=== PATIENT | male | born 1960 | race Caucasian/White ===

== ENCOUNTER 2017-10-23 09:40 | Inpatient (IN) | payer MEDICAID ==
[2017-10-23] VITALS (11 sets, daily range): BP systolic 131–157; BP diastolic 81–107
[~2017-10-23] VITALS: Ht 190.5 cm; Wt 108.5 kg
[2017-10-23 10:11] LABS: BASOPHILS # (AUTO) 0.1 X10'3 (0-0.2); BASOPHILS % (AUTO) 1.1 % (0-1); EOSINOPHILS # (AUTO) 0.5 X10'3 (0-0.9); EOSINOPHILS % (AUTO) 4.8 % (0-6); HEMATOCRIT 50.3 % (42.0-52.0); HEMOGLOBIN 16.8 g/dl (14.0-17.9); LYMPHOCYTES # (AUTO) 2.8 X10'3 (1.1-4.8); LYMPHOCYTES % (AUTO) 25.7 % (21-51); MEAN CORPUSCULAR HEMOGLOBIN 28.7 PG (27.0-31.0); MEAN CORPUSCULAR HGB CONC 33.4 % (33.0-36.5); MEAN PLATELET VOLUME 8.8 FL (7.4-10.4); MONOCYTES # (AUTO) 1.1 X10'3 (0-0.9); MONOCYTES % (AUTO) 9.8 % (2-12); NEUTROPHILS # (AUTO) 6.3 X10'3 (1.8-7.7); NEUTROPHILS % (AUTO) 58.6 % (42-75); PLATELET COUNT 238 X10'3 (140-440); RED BLOOD COUNT 5.85 X10'6 (4.70-6.10); WHITE BLOOD COUNT 10.7 X10'3 (4.5-11.0)
[2017-10-23 10:28] LABS: ALANINE AMINOTRANSFERASE 109 U/L (12-78); ALBUMIN 3.7 G/DL (3.4-5.0); ALBUMIN/GLOBULIN RATIO 0.8 (1.1-1.5); ALKALINE PHOSPHATASE 88 IU/L (46-116); ANION GAP 8 (8-16); ASPARTATE AMINO TRANSFERASE 56 U/L (10-37); BILIRUBIN,TOTAL 0.6 MG/DL (0.1-1.0); BLOOD UREA NITROGEN 13 MG/DL (7-18); BUN/CREATININE RATIO 14.6 (5.4-32.0); CALCIUM 9.6 MG/DL (8.5-10.1); CHLORIDE 104 MMOL/L (99-107); CREATININE 0.89 MG/DL (0.60-1.10); GLUCOSE 96 MG/DL (70-104); SODIUM 137 MMOL/L (135-145); TOTAL CARBON DIOXIDE 25.5 MMOL/L (24-32); TOTAL PROTEIN 8.2 G/DL (6.4-8.2); eGFR 88 ML/MIN
[2017-10-23 10:35] LABS: MAGNESIUM 2.1 MG/DL (1.5-2.4)
[2017-10-23] MEDS ORDERED: vancomycin/NS 1 GM ADD-VANTAGE 250 ML IV ONE (12:35)
[2017-10-23] MEDS ORDERED: insulin regular, human inj. 100 UNITS in normal saline 100ml IV soln 100 ML IV SCH ×2 (12:35)
[2017-10-23] MEDS ORDERED: cefazolin/dext.iso 2gm/50ml 50 ML IV ONE (12:35)
[2017-10-23] MEDS ORDERED: MESSAGE TO NURSING PO ONE ×4 (12:35)
[2017-10-23] MEDS ORDERED: dextrose 50%-water 50ml dispensing syringe IV PRN (12:35)
[2017-10-23] MEDS ORDERED: insulin Lispro (HumaLOG) vial - multi-dose SQ SCH (13:00)
[2017-10-23 13:09] LABS: PARTIAL THROMBOPLASTIN TIME 25 SECONDS (22-32); PROTHROMBIN TIME 10.2 SECONDS (9.0-12.0)
[2017-10-23 13:11] LABS: ABG BASE EXCESS 0.6 mmol/L (-2.0-3.0); ABG HCO3 24.5 mmol/L (22.0-26.0); ABG OXYGEN SATURATION 93.9 % (95-98); ABG PCO2 (T) 37.5 mmHg (35.0-48.0); ABG PH (T) 7.433 (7.350-7.450); ABG PO2 (T) 67.5 mmHg (83-108); ALLEN'S TEST Positive; FCOHb 1.8 % (0.5-1.5); FMetHb 0.2 % (0.3-1.12); TOTAL HEMOGLOBIN 17.5 G/dl (14.0-18.0)
[2017-10-23] MEDS ORDERED: normal saline 1000ml 1,000 ML IV SCH (13:48)
[2017-10-23] MEDS ORDERED: acetaminophen 325mg tablet PO PRN ×2 (13:50)
[2017-10-23] MEDS ORDERED: diphenhydrAMINE 25mg capsule PO PRN (13:50)
[2017-10-23] MEDS ORDERED: magnesium 2GM in 50ml NS 50 ML IV PRN (13:50)
[2017-10-23] MEDS ORDERED: magnesium hydroxide 30ml (MOM) UD suspension PO PRN (13:50)
[2017-10-23] MEDS ORDERED: magnesium Cl slow-release 64mg tablet PO PRN (13:50)
[2017-10-23] MEDS ORDERED: mag hydrox/Alum hydrox/simeth 30ml oral suspension PO PRN (13:50)
[2017-10-23] MEDS ORDERED: HYDROcodone/acetaminophen 5mg/325mg tablet PO PRN (13:50)
[2017-10-23] MEDS ORDERED: morphine 4 MG/ML inj SYRINge IV PRN ×2 (13:50)
[2017-10-23] MEDS ORDERED: potassium Cl 20 mEq SR tablet PO PRN ×2 (13:50)
[2017-10-23] MEDS ORDERED: K and/or MAG REPLACEMENT MC SCH (13:50)
[2017-10-23] MEDS ORDERED: HYDROcodone/acetaminophen 10/325mg tab PO PRN (13:50)
[2017-10-23] MEDS ORDERED: potassium Cl 40MEQ/NS 500ml 500 ML IV PRN ×2 (13:50)
[2017-10-23] MEDS ORDERED: ondansetron/PF 4mg/2ml inj IV PRN (13:50)
[2017-10-23] MEDS ORDERED: magnesium 4gm in 100ml NS 100 ML IV PRN (13:50)
[2017-10-23 13:59] LABS: CLARITY,URINE SLIGHTLY CLOUDY (Clear); COLOR,URINE YELLOW (Yellow); GLUCOSE, URINE NEGATIVE (Neg); KETONES,URINE NEGATIVE (Neg); LEUKOCYTE ESTERASE ,URINE SMALL (Neg); NITRITES, URINE NEGATIVE (Neg); OCCULT BLOOD,URINE TRACE-INTACT (Neg); PH,URINE 5.5 (4.8-8.0); PROTEIN,URINE NEGATIVE (Neg); UROBILINOGEN,URINE 0.2 E.U/dL (0.2-1.0)
[2017-10-23 14:00] LABS: UA COLLECTION TYPE CLN CATCH MIDSTREAM
[2017-10-23 14:07] LABS: SQUAMOUS EPITHELIAL CELL,UR FEW /LPF (FEW); TRICHOMONAS,URINE FEW /HPF (NEGATIVE)
[2017-10-23 14:08] LABS: BACTERIA,URINE FEW /HPF (Neg); RBC,URINE 0-2 /HPF (0-2); WBC,URINE 0-4 /HPF (0-4)
[2017-10-23 14:15] LABS: URINE AMPHETAMINE SCREEN POSITIVE (Neg); URINE BARBITUATE SCREEN NEGATIVE (Neg); URINE BENZODIAZEPINES SCREEN NEGATIVE (Neg); URINE CANNABINOID SCREEN NEGATIVE (Neg); URINE COCAINE SCREEN NEGATIVE (Neg); URINE METHADONE SCREEN NEGATIVE (Neg); URINE OPIATE SCREEN NEGATIVE (Neg); URINE PHENCYCLIDINE SCREEN NEGATIVE (Neg)
[2017-10-23] MEDS ORDERED: LORazepam 2 mg/ml vial IV ONE (15:25)
[2017-10-23] MEDS ORDERED: midazolam 2 mg/2 ml injection ONE ×2 (16:25→17:08)
[2017-10-23] MEDS ORDERED: LIDOcaine 1% 30ml preserv. free vial ONE (16:26)
[2017-10-23] MEDS ORDERED: fentaNYL/PF 50MCG/1 ML 2ML syringe ONE (16:26)
[2017-10-23] MEDS ORDERED: iohexol 350MG/ML 100ml bottle IV ONE (16:26)
[2017-10-23] MEDS ORDERED: iohexol 350 MG/ML 50ML vial IV ONE (16:26)
[2017-10-23] MEDS ORDERED: normal saline 1000ml 1,000 ML IV ONE (18:05)
[2017-10-23] MEDS ORDERED: ringers solution, lacted 1,000 ML IV ONE (18:55)
[2017-10-23] MEDS ORDERED: hydrALAZINE 20mg/ml inj. IV ONE (20:55)
[2017-10-23] MEDS ORDERED: hydrALAZINE 20mg/ml inj. IV PRN (20:55)
[2017-10-23] MEDS ORDERED: temazepam 15mg capsule PO PRN (21:00)
[2017-10-24] VITALS (19 sets, daily range): BP systolic 80–160; BP diastolic 46–94
[2017-10-24] MEDS ORDERED: vancomycin/NS 1 GM ADD-VANTAGE 250 ML IV ONE (05:00)
[2017-10-24] MEDS ORDERED: Cefazolin 2GM/100ML NS IVPB 100 ML IV ONE (05:00)
[2017-10-24] MEDS ORDERED: insulin Lispro (HumaLOG) vial - multi-dose SQ SCH (05:00)
[2017-10-24] MEDS ORDERED: mupirocin 2% ointment 22GM NS SCH (05:00)
[2017-10-24 05:27] LABS: BASOPHILS # (AUTO) 0.1 X10'3 (0-0.2); BASOPHILS % (AUTO) 0.8 % (0-1); EOSINOPHILS # (AUTO) 0.4 X10'3 (0-0.9); EOSINOPHILS % (AUTO) 3.4 % (0-6); HEMATOCRIT 49.3 % (42.0-52.0); HEMOGLOBIN 16.5 g/dl (14.0-17.9); LYMPHOCYTES # (AUTO) 2.7 X10'3 (1.1-4.8); MEAN CORPUSCULAR HGB CONC 33.6 % (33.0-36.5); MEAN CORPUSCULAR VOLUME 86.3 FL (78-98); MEAN PLATELET VOLUME 9.5 FL (7.4-10.4); MONOCYTES # (AUTO) 0.8 X10'3 (0-0.9); MONOCYTES % (AUTO) 7.2 % (2-12); NEUTROPHILS # (AUTO) 7.3 X10'3 (1.8-7.7); NEUTROPHILS % (AUTO) 64.6 % (42-75); PLATELET COUNT 210 X10'3 (140-440); RED BLOOD COUNT 5.71 X10'6 (4.70-6.10); RED CELL DISTRIBUTION WIDTH 14.5 % (11.5-14.5); WHITE BLOOD COUNT 11.3 X10'3 (4.5-11.0)
[2017-10-24] MEDS ORDERED: LORazepam 2 mg/ml vial IV ONE (06:00)
[2017-10-24] MEDS ORDERED: famotidine 20mg tablet PO ONE (06:00)
[2017-10-24 06:11] LABS: ALANINE AMINOTRANSFERASE 107 U/L (12-78); ALBUMIN 3.5 G/DL (3.4-5.0); ALBUMIN/GLOBULIN RATIO 0.8 (1.1-1.5); ALKALINE PHOSPHATASE 75 IU/L (46-116); ANION GAP 9 (8-16); ASPARTATE AMINO TRANSFERASE 56 U/L (10-37); BILIRUBIN,TOTAL 0.6 MG/DL (0.1-1.0); BLOOD UREA NITROGEN 17 MG/DL (7-18); CHLORIDE 104 MMOL/L (99-107); CHOLESTEROL 137 MG/DL (0-200); GLUCOSE 114 MG/DL (70-104); MAGNESIUM 2.1 MG/DL (1.5-2.4); PHOSPHORUS 3.9 MG/DL (2.3-4.5); SODIUM 139 MMOL/L (135-145); TOTAL CARBON DIOXIDE 25.7 MMOL/L (24-32); eGFR 77 ML/MIN
[2017-10-24 06:12] LABS: CHOL/HDL RATIO 3.8 (0.00-4.99); HDL CHOLESTEROL 36 MG/DL (35-60); LDL CHOLESTEROL 91 MG/DL (50-100); TRIGLYCERIDES 109 MG/DL (20-135)
[2017-10-24] MEDS ORDERED: amiodarone 50MG/ML inj IV ONE (06:54)
[2017-10-24] MEDS ORDERED: DOPamine/D5W 400mg/250ml bag IV ONE (06:54)
[2017-10-24] MEDS ORDERED: protamine sulf. 10mg/ml inj. IV ONE (06:54)
[2017-10-24] MEDS ORDERED: isoflurane 100ml inhalation liquid IH ONE (06:54)
[2017-10-24] MEDS ORDERED: aminocaproic acid 250 MG/1 ML inj. ONE (06:54)
[2017-10-24] MEDS ORDERED: sodium bicarbonate (8.4%) 1 mEq/ml syringe ONE (06:54)
[2017-10-24] MEDS ORDERED: MIDAZolam 1mg/ml 10ml vial ONE (06:55)
[2017-10-24] MEDS ORDERED: SUFENTANIL CITRATE 50 MCG/ML 2ml ampule IV ONE (06:55)
[2017-10-24 08:00] LABS: ABG HCO3 25.3 mmol/L (22.0-26.0); ABG OXYGEN SATURATION 99.1 % (95-98); ABG PCO2 47.7 mmHg (35.0-45.0); ABG PH 7.343 (7.350-7.450); ABG PO2 164.7 mmHg (60.0-100.0); CL (ABG) 104 mmol/L (99-107); FCOHb 1.1 % (0.5-1.5); FMetHb 0.4 % (0.3-1.12); FO2Hb 97.6 % (94-100); GLUCOSE (ABG) 112 mg/dl (70-105); IONIZED CA (ABG) 1.17 mmol/L (1.03-1.32); K (ABG) 4.1 mmol/L (3.3-5.1); NA (ABG) 137 mmol/L (135-145); TOTAL HEMOGLOBIN 16.6 G/dl (14.0-18.0)
[2017-10-24] MEDS ORDERED: enoxaparin 40mg/0.4ml syringe SUBCUT SCH (08:00)
[2017-10-24] MEDS ORDERED: propofol inj 20 ML IV ONE (08:01)
[2017-10-24] MEDS ORDERED: propofol inj 0 ML IV ONE (08:01)
[2017-10-24] MEDS ORDERED: 0.9 % SODIUM CHLORIDE 10 ML VIAL ONE ×3 (08:01)
[2017-10-24] MEDS ORDERED: LIDOcaine 2% (20mg/ml) 5ml vial ONE (08:02)
[2017-10-24] MEDS ORDERED: rocuronium 10mg/ml inj IV ONE ×2 (08:02)
[2017-10-24] MEDS ORDERED: ePHEDrine 50MG/ML INJ. ONE ×2 (08:02→08:44)
[2017-10-24] MEDS ORDERED: fentaNYL/PF 50MCG/1 ML 2ML syringe IV PRN (08:55)
[2017-10-24] MEDS ORDERED: midazolam 2 mg/2 ml injection IV PRN (08:55)
[2017-10-24 09:06] LABS: ABG BASE EXCESS 1.4 mmol/L (-2.0-3.0); ABG HCO3 28.8 mmol/L (22.0-26.0); ABG OXYGEN SATURATION 99.1 % (95-98); ABG PCO2 58.3 mmHg (35.0-45.0); ABG PH 7.312 (7.350-7.450); ABG PO2 211.6 mmHg (60.0-100.0); CL (ABG) 103 mmol/L (99-107); FCOHb 0.8 % (0.5-1.5); FMetHb 0.5 % (0.3-1.12); FO2Hb 97.8 % (94-100); GLUCOSE (ABG) 140 mg/dl (70-105); IONIZED CA (ABG) 1.08 mmol/L (1.03-1.32); K (ABG) 5.3 mmol/L (3.3-5.1); NA (ABG) 132 mmol/L (135-145); TOTAL HEMOGLOBIN 12.7 G/dl (14.0-18.0)
[2017-10-24 09:20] LABS: ABG HCO3 VENOUS 24.8 mmol/L; ABG PCO2 VENOUS 50.8 mmHg; ABG PO2 VENOUS 53.2 mmHg; CL (ABG) 103 mmol/L (99-107); FHHb VENOUS 15.9 %; FMetHb VENOUS 0.5 %; FO2Hb VENOUS 82.6 %; GLUCOSE (ABG) 158 mg/dl (70-105); IONIZED CA (ABG) 1.09 mmol/L (1.03-1.32); K (ABG) 5.1 mmol/L (3.3-5.1); NA (ABG) 133 mmol/L (135-145); TOTAL HEMOGLOBIN 12.9 G/dl (14.0-18.0)
[2017-10-24 09:40] LABS: ABG BASE EXCESS -1.7 mmol/L (-2.0-3.0); ABG HCO3 22.9 mmol/L (22.0-26.0); ABG OXYGEN SATURATION 99.1 % (95-98); ABG PCO2 38.1 mmHg (35.0-45.0); ABG PH 7.396 (7.350-7.450); ABG PO2 231.9 mmHg (60.0-100.0); CL (ABG) 104 mmol/L (99-107); FCOHb 0.6 % (0.5-1.5); FMetHb 0.4 % (0.3-1.12); FO2Hb 98.1 % (94-100); GLUCOSE (ABG) 171 mg/dl (70-105); IONIZED CA (ABG) 1.05 mmol/L (1.03-1.32); K (ABG) 4.9 mmol/L (3.3-5.1); NA (ABG) 132 mmol/L (135-145); TOTAL HEMOGLOBIN 12.8 G/dl (14.0-18.0)
[2017-10-24 10:00] LABS: ABG BASE EXCESS -1.9 mmol/L (-2.0-3.0); ABG HCO3 22.3 mmol/L (22.0-26.0); ABG OXYGEN SATURATION 99.2 % (95-98); ABG PCO2 36.2 mmHg (35.0-45.0); ABG PH 7.407 (7.350-7.450); CL (ABG) 104 mmol/L (99-107); FCOHb 0.6 % (0.5-1.5); FMetHb 0.4 % (0.3-1.12); FO2Hb 98.2 % (94-100); GLUCOSE (ABG) 167 mg/dl (70-105); IONIZED CA (ABG) 1.06 mmol/L (1.03-1.32); K (ABG) 4.5 mmol/L (3.3-5.1); NA (ABG) 133 mmol/L (135-145); TOTAL HEMOGLOBIN 12.7 G/dl (14.0-18.0)
[2017-10-24] MEDS ORDERED: MESSAGE TO NURSING PO ONE (10:00)
[2017-10-24 10:36] LABS: ABG BASE EXCESS 0.2 mmol/L (-2.0-3.0); ABG HCO3 25.6 mmol/L (22.0-26.0); ABG OXYGEN SATURATION 99.1 % (95-98); ABG PCO2 44.6 mmHg (35.0-45.0); ABG PH 7.377 (7.350-7.450); ABG PO2 479.2 mmHg (60.0-100.0); CL (ABG) 103 mmol/L (99-107); FCOHb 0.3 % (0.5-1.5); FMetHb 0.5 % (0.3-1.12); FO2Hb 98.3 % (94-100); GLUCOSE (ABG) 139 mg/dl (70-105); K (ABG) 4.6 mmol/L (3.3-5.1); NA (ABG) 129 mmol/L (135-145); TOTAL HEMOGLOBIN 10.9 G/dl (14.0-18.0)
[2017-10-24 11:00] LABS: ABG BASE EXCESS -1.3 mmol/L (-2.0-3.0); ABG HCO3 23.4 mmol/L (22.0-26.0); ABG OXYGEN SATURATION 99.3 % (95-98); ABG PCO2 39.1 mmHg (35.0-45.0); ABG PH 7.395 (7.350-7.450); ABG PO2 464.4 mmHg (60.0-100.0); CL (ABG) 105 mmol/L (99-107); FCOHb 0.3 % (0.5-1.5); FMetHb 0.4 % (0.3-1.12); FO2Hb 98.6 % (94-100); GLUCOSE (ABG) 138 mg/dl (70-105); K (ABG) 4.7 mmol/L (3.3-5.1); NA (ABG) 131 mmol/L (135-145); TOTAL HEMOGLOBIN 11.6 G/dl (14.0-18.0)
[2017-10-24 11:40] LABS: ABG BASE EXCESS -4.5 mmol/L (-2.0-3.0); ABG HCO3 23.9 mmol/L (22.0-26.0); ABG PCO2 59.5 mmHg (35.0-45.0); ABG PH 7.221 (7.350-7.450); ABG PO2 137.5 mmHg (60.0-100.0); CL (ABG) 108 mmol/L (99-107); FCOHb 0.6 % (0.5-1.5); FMetHb 0.5 % (0.3-1.12); FO2Hb 96.9 % (94-100); GLUCOSE (ABG) 164 mg/dl (70-105); K (ABG) 3.7 mmol/L (3.3-5.1); NA (ABG) 137 mmol/L (135-145); TOTAL HEMOGLOBIN 12.3 G/dl (14.0-18.0)
[2017-10-24] MEDS ORDERED: sodium bicarbonate 1 MEQ/1 ml inj ONE ×3 (11:44→11:51)
[2017-10-24] MEDS ORDERED: ceFAZolin 1000mg inj ONE (11:44)
[2017-10-24 11:45] LABS: ABG BASE EXCESS -6.4 mmol/L (-2.0-3.0); ABG HCO3 20.8 mmol/L (22.0-26.0); ABG OXYGEN SATURATION 98.2 % (95-98); ABG PCO2 48.6 mmHg (35.0-45.0); ABG PO2 144.1 mmHg (60.0-100.0); CL (ABG) 107 mmol/L (99-107); FCOHb 0.4 % (0.5-1.5); FMetHb 0.6 % (0.3-1.12); FO2Hb 97.2 % (94-100); GLUCOSE (ABG) 155 mg/dl (70-105); K (ABG) 3.7 mmol/L (3.3-5.1); NA (ABG) 136 mmol/L (135-145); TOTAL HEMOGLOBIN 12.4 G/dl (14.0-18.0)
[2017-10-24 12:01] LABS: ABG BASE EXCESS 5.9 mmol/L (-2.0-3.0); ABG HCO3 32.2 mmol/L (22.0-26.0); ABG OXYGEN SATURATION 98.7 % (95-98); ABG PCO2 55.1 mmHg (35.0-45.0); ABG PH 7.385 (7.350-7.450); CL (ABG) 105 mmol/L (99-107); FCOHb 0.2 % (0.5-1.5); FMetHb 0.6 % (0.3-1.12); FO2Hb 97.9 % (94-100); GLUCOSE (ABG) 152 mg/dl (70-105); IONIZED CA (ABG) 1.08 mmol/L (1.03-1.32); K (ABG) 3.3 mmol/L (3.3-5.1); NA (ABG) 141 mmol/L (135-145); TOTAL HEMOGLOBIN 11.8 G/dl (14.0-18.0)
[2017-10-24] MEDS ORDERED: niCARDipine/sod cl 20mg/200ml 200 ML IV PRN (12:03)
[2017-10-24] MEDS ORDERED: DOPamine 400mg/D5W 250ml 250 ML IV PRN (12:03)
[2017-10-24] MEDS ORDERED: nitroGLYCERIN-Tridil 50MG/D5W 250 ML IV PRN (12:03)
[2017-10-24] MEDS ORDERED: insulin regular, human inj. 100 UNITS in normal saline 100ml IV soln 100 ML IV SCH ×2 (12:05)
[2017-10-24] MEDS ORDERED: magnesium hydroxide 30ml (MOM) UD suspension PO PRN (12:05)
[2017-10-24] MEDS ORDERED: metoclopramide 5 mg/ml inj IV PRN (12:05)
[2017-10-24] MEDS ORDERED: magnesium 4gm in 100ml NS 100 ML IV PRN (12:05)
[2017-10-24] MEDS ORDERED: potassium Cl 20mEq/100mL bag 100 ML IV PRN ×3 (12:05)
[2017-10-24] MEDS ORDERED: sodium phosphate inj. 30 MMOL in dextrose 5%-water 250 ML IV PRN (12:05)
[2017-10-24] MEDS ORDERED: dextrose 50%-water 50ml dispensing syringe IV PRN (12:05)
[2017-10-24] MEDS ORDERED: ondansetron/PF 4mg/2ml inj IV PRN (12:05)
[2017-10-24] MEDS ORDERED: normal saline 250ml IV soln 250 ML IV PRN (12:05)
[2017-10-24] MEDS ORDERED: sodium phosphate inj. 15 MMOL in dextrose 5%-water 150 ML IV PRN (12:05)
[2017-10-24] MEDS ORDERED: acetaminophen 325mg tablet PO PRN (12:05)
[2017-10-24] MEDS ORDERED: albumin (Human) 5% 250ml 250 ML IV PRN (12:05)
[2017-10-24] MEDS ORDERED: Neutra Phos packet PO PRN (12:05)
[2017-10-24 12:40] LABS: ABG BASE EXCESS -2.3 mmol/L (-2.0-3.0); ABG HCO3 24.8 mmol/L (22.0-26.0); ABG OXYGEN SATURATION 97.8 % (95-98); ABG PH (T) 7.309 (7.350-7.450); ABG PO2 (T) 114.9 mmHg (83-108); FCOHb 0.4 % (0.5-1.5); FMetHb 0.3 % (0.3-1.12); FO2Hb 97.1 % (94-100); PEEP 5 cm H2O; RESPIRATORY RATE 14 b/min; TIDAL VOLUME 650 mL; TOTAL HEMOGLOBIN 14.1 G/dl (14.0-18.0)
[2017-10-24 12:45] LABS: HEMATOCRIT 39.6 % (42.0-52.0); HEMOGLOBIN 13.6 g/dl (14.0-17.9); MEAN CORPUSCULAR HEMOGLOBIN 29.3 PG (27.0-31.0); MEAN CORPUSCULAR HGB CONC 34.2 % (33.0-36.5); MEAN CORPUSCULAR VOLUME 85.6 FL (78-98); MEAN PLATELET VOLUME 8.5 FL (7.4-10.4); PLATELET COUNT 151 X10'3 (140-440); RED BLOOD COUNT 4.63 X10'6 (4.70-6.10); RED CELL DISTRIBUTION WIDTH 14.5 % (11.5-14.5)
[2017-10-24 12:48] LABS: WHITE BLOOD COUNT 25.2 X10'3 (4.5-11.0)
[2017-10-24 12:59] LABS: ALANINE AMINOTRANSFERASE 72 U/L (12-78); ALBUMIN 2.6 G/DL (3.4-5.0); ALBUMIN/GLOBULIN RATIO 0.9 (1.1-1.5); ALKALINE PHOSPHATASE 53 IU/L (46-116); ANION GAP 8 (8-16); BILIRUBIN,TOTAL 0.9 MG/DL (0.1-1.0); BLOOD UREA NITROGEN 18 MG/DL (7-18); BUN/CREATININE RATIO 13.1 (5.4-32.0); CALCIUM 8.1 MG/DL (8.5-10.1); CHLORIDE 108 MMOL/L (99-107); CREATININE 1.37 MG/DL (0.60-1.10); GLUCOSE 145 MG/DL (70-104); MAGNESIUM 3.6 MG/DL (1.5-2.4); SODIUM 145 MMOL/L (135-145); TOTAL CARBON DIOXIDE 29.2 MMOL/L (24-32); TOTAL PROTEIN 5.4 G/DL (6.4-8.2); eGFR 54 ML/MIN
[2017-10-24 13:00] LABS: PHOSPHORUS 2.8 MG/DL (2.3-4.5); POTASSIUM 3.3 MMOL/L (3.5-5.1)
[2017-10-24] MEDS: insulin Lispro (HumaLOG) vial - multi-dose SQ SCH ×2 (13:00→18:00)
[2017-10-24 13:01] LABS: ASPARTATE AMINO TRANSFERASE 77 U/L (10-37)
[2017-10-24 13:05] LABS: ANISOCYTOSIS 1+; MICROCYTOSIS 1+; PLATELET ESTIMATE NORMAL; TOTAL CELLS COUNTED 100
[2017-10-24 13:25] LABS: INR 1.1 INR; PARTIAL THROMBOPLASTIN TIME 28 SECONDS (22-32); PROTHROMBIN TIME 11.6 SECONDS (9.0-12.0)
[2017-10-24] MEDS: insulin regular, human inj. 100 UNITS in normal saline 100ml IV soln 100 ML IV SCH ×4 (13:42→18:23)
[2017-10-24] MEDS: sodium chloride 0.45% 1,000 ML IV SCH (14:00)
[2017-10-24] MEDS: morphine 4 MG/ML inj SYRINge IV PRN ×5 (14:45→23:25)
[2017-10-24] MEDS: ceFAZolin 1GM/D5W- ADD-VANTAGE 50 ML IV SCH (17:06)
[2017-10-24 18:15] LABS: BASOPHILS # (AUTO) 0.1 X10'3 (0-0.2); BASOPHILS % (AUTO) 0.3 % (0-1); EOSINOPHILS # (AUTO) 0.3 X10'3 (0-0.9); EOSINOPHILS % (AUTO) 1.7 % (0-6); HEMATOCRIT 41.9 % (42.0-52.0); HEMOGLOBIN 14.1 g/dl (14.0-17.9); LYMPHOCYTES # (AUTO) 0.9 X10'3 (1.1-4.8); LYMPHOCYTES % (AUTO) 4.7 % (21-51); MEAN CORPUSCULAR HEMOGLOBIN 29.2 PG (27.0-31.0); MEAN CORPUSCULAR HGB CONC 33.8 % (33.0-36.5); MEAN CORPUSCULAR VOLUME 86.6 FL (78-98); MEAN PLATELET VOLUME 8.4 FL (7.4-10.4); MONOCYTES # (AUTO) 0.9 X10'3 (0-0.9); MONOCYTES % (AUTO) 4.6 % (2-12); NEUTROPHILS # (AUTO) 17.3 X10'3 (1.8-7.7); NEUTROPHILS % (AUTO) 88.7 % (42-75); PLATELET COUNT 126 X10'3 (140-440); RED BLOOD COUNT 4.83 X10'6 (4.70-6.10); RED CELL DISTRIBUTION WIDTH 14.8 % (11.5-14.5); WHITE BLOOD COUNT 19.5 X10'3 (4.5-11.0)
[2017-10-24 18:29] LABS: ALBUMIN 2.9 G/DL (3.4-5.0); ANION GAP 8 (8-16); BLOOD UREA NITROGEN 18 MG/DL (7-18); CALCIUM 8.2 MG/DL (8.5-10.1); CHLORIDE 111 MMOL/L (99-107); GLUCOSE 191 MG/DL (70-104); POTASSIUM 5.2 MMOL/L (3.5-5.1); SODIUM 144 MMOL/L (135-145); TOTAL CARBON DIOXIDE 25.3 MMOL/L (24-32); eGFR 63 ML/MIN
[2017-10-24] MEDS ORDERED: epiNEPHrine inj 5 MG, calcium chloride inj. 1,000 MG in normal saline 250ml IV soln 250 ML IV PRN (18:47)
[2017-10-24] MEDS ORDERED: NORepinephrine 8mg/ 250ml NS 250 ML IV PRN (18:47)
[2017-10-24 19:15] LABS: ABG BASE EXCESS -1.9 mmol/L (-2.0-3.0); ABG HCO3 22.9 mmol/L (22.0-26.0); ABG OXYGEN SATURATION 93.4 % (95-98); ABG PCO2 (T) 37.9 mmHg (35.0-48.0); ABG PH (T) 7.395 (7.350-7.450); ABG PO2 (T) 62.5 mmHg (83-108); FCOHb 0.4 % (0.5-1.5); FMetHb 0.2 % (0.3-1.12); FO2Hb 92.8 % (94-100); MINUTE VOLUME 11 L/min; PATIENT TEMPERATURE 36.1; PEEP 5 cm H2O; RESPIRATORY RATE (OBSERVED) 11 b/min; TOTAL HEMOGLOBIN 14.5 G/dl (14.0-18.0)
[2017-10-24] MEDS: docusate sod 100mg capsule PO SCH (20:00)
[2017-10-24] MEDS: vancomycin/NS 1 GM ADD-VANTAGE 250 ML IV SCH (20:17)
[2017-10-24] MEDS: ketorolac tromethamine 15mg/ml inj. IV SCH (20:18)
[2017-10-24] MEDS: propofol 1000mg/100ml bottle 100 ML IV PRN (21:04)
[2017-10-24 21:06] LABS: MAGNESIUM 2.6 MG/DL (1.5-2.4)
[2017-10-24] MEDS: mupirocin 2% ointment 22GM NS SCH (21:15)
[2017-10-24] MEDS: dexmedetomidin/NS 400mcg/100ml 100 ML IV SCH (22:00)
[2017-10-25] VITALS (24 sets, daily range): BP systolic 96–149; BP diastolic 50–75
[2017-10-25 02:36] LABS: BASOPHILS % (AUTO) 0 % (0-1); EOSINOPHILS # (AUTO) 0.3 X10'3 (0-0.9); EOSINOPHILS % (AUTO) 1.6 % (0-6); HEMATOCRIT 37.6 % (42.0-52.0); HEMOGLOBIN 12.7 g/dl (14.0-17.9); LYMPHOCYTES # (AUTO) 1.2 X10'3 (1.1-4.8); MEAN CORPUSCULAR HEMOGLOBIN 29.6 PG (27.0-31.0); MEAN CORPUSCULAR HGB CONC 33.9 % (33.0-36.5); MEAN CORPUSCULAR VOLUME 87.3 FL (78-98); MONOCYTES # (AUTO) 1.3 X10'3 (0-0.9); MONOCYTES % (AUTO) 6.6 % (2-12); NEUTROPHILS # (AUTO) 17.5 X10'3 (1.8-7.7); NEUTROPHILS % (AUTO) 85.8 % (42-75); PLATELET COUNT 117 X10'3 (140-440); RED CELL DISTRIBUTION WIDTH 14.8 % (11.5-14.5); WHITE BLOOD COUNT 20.4 X10'3 (4.5-11.0)
[2017-10-25] MEDS: ketorolac tromethamine 15mg/ml inj. IV SCH ×3 (02:37→13:35)
[2017-10-25 02:50] LABS: PARTIAL THROMBOPLASTIN TIME 25 SECONDS (22-32); PROTHROMBIN TIME 10.2 SECONDS (9.0-12.0)
[2017-10-25] MEDS: propofol 1000mg/100ml bottle 100 ML IV PRN (02:53)
[2017-10-25] MEDS: dexmedetomidin/NS 400mcg/100ml 100 ML IV SCH (02:54)
[2017-10-25 03:01] LABS: ALANINE AMINOTRANSFERASE 66 U/L (12-78); ALKALINE PHOSPHATASE 39 IU/L (46-116); ANION GAP 8 (8-16); ASPARTATE AMINO TRANSFERASE 90 U/L (10-37); BILIRUBIN,TOTAL 0.7 MG/DL (0.1-1.0); BLOOD UREA NITROGEN 22 MG/DL (7-18); BUN/CREATININE RATIO 19.6 (5.4-32.0); CALCIUM 8.5 MG/DL (8.5-10.1); CHLORIDE 111 MMOL/L (99-107); CREATININE 1.12 MG/DL (0.60-1.10); GLUCOSE 133 MG/DL (70-104); MAGNESIUM 2.4 MG/DL (1.5-2.4); POTASSIUM 4.9 MMOL/L (3.5-5.1); SODIUM 144 MMOL/L (135-145); TOTAL CARBON DIOXIDE 25.5 MMOL/L (24-32); eGFR 68 ML/MIN
[2017-10-25] MEDS: insulin regular, human inj. 100 UNITS in normal saline 100ml IV soln 100 ML IV SCH ×4 (03:48→08:04)
[2017-10-25] MEDS: magnesium 2GM in 50ml NS 50 ML IV PRN (05:34)
[2017-10-25] MEDS: pantoprazole 40mg Tablet.DR PO SCH (07:30)
[2017-10-25] MEDS: atorvastatin 10mg tablet PO SCH (07:33)
[2017-10-25] MEDS: docusate sod 100mg capsule PO SCH ×2 (07:33→20:12)
[2017-10-25] MEDS: aspirin 325mg tablet, delayed-release (Ecotrin) PO SCH (07:33)
[2017-10-25] MEDS: insulin Lispro (HumaLOG) vial - multi-dose SQ SCH ×2 (07:34→13:00)
[2017-10-25] MEDS ORDERED: metoprolol tartrate 12.5mg (1/2 tablet) PO SCH (08:00)
[2017-10-25] MEDS ORDERED: furosemide 40mg/4ml inj IV ONE (08:20)
[2017-10-25] MEDS: ceFAZolin 1GM/D5W- ADD-VANTAGE 50 ML IV SCH ×3 (08:43→18:24)
[2017-10-25] MEDS: mupirocin 2% ointment 22GM NS SCH ×2 (08:44→20:12)
[2017-10-25 08:45] LABS: ABG BASE EXCESS 0.7 mmol/L (-2.0-3.0); ABG HCO3 24.9 mmol/L (22.0-26.0); ABG OXYGEN SATURATION 91.8 % (95-98); ABG PCO2 (T) 40.1 mmHg (35.0-48.0); ABG PH (T) 7.414 (7.350-7.450); ABG PO2 (T) 65.5 mmHg (83-108); FCOHb 0.3 % (0.5-1.5); FLOW 4 L/min; FMetHb 0.1 % (0.3-1.12); FO2Hb 91.4 % (94-100); RESPIRATORY RATE 24 b/min; TOTAL HEMOGLOBIN 12.8 G/dl (14.0-18.0)
[2017-10-25] MEDS: vancomycin/NS 1 GM ADD-VANTAGE 250 ML IV SCH ×2 (10:22→21:16)
[2017-10-25] MEDS: HYDROcodone/acetaminophen 10/325mg tab PO PRN ×2 (13:32→20:12)
[2017-10-25] MEDS ORDERED: mineral oil/petrolatum ophthal oint EACHEYE SCH (14:00)
[2017-10-25] MEDS ORDERED: ACET-812 PO (16:58)
[2017-10-25] MEDS ORDERED: LISI-604 PO (16:58)
[2017-10-25] MEDS ORDERED: GABA-532 PO (16:58)
[2017-10-25] MEDS ORDERED: IBUP-1985 PO (16:58)
[2017-10-25] MEDS: lisinopril 5mg tablet PO SCH (20:12)
[2017-10-25] MEDS: morphine 4 MG/ML inj SYRINge IV PRN (21:21)
[2017-10-26] VITALS (24 sets, daily range): BP systolic 100–156; BP diastolic 57–91
[2017-10-26] MEDS: ceFAZolin 1GM/D5W- ADD-VANTAGE 50 ML IV SCH (00:07)
[2017-10-26] MEDS: HYDROcodone/acetaminophen 10/325mg tab PO PRN ×7 (00:07→20:09)
[2017-10-26 06:15] LABS: BASOPHILS % (AUTO) 0 % (0-1); EOSINOPHILS # (AUTO) 0.2 X10'3 (0-0.9); EOSINOPHILS % (AUTO) 1.1 % (0-6); HEMATOCRIT 32.7 % (42.0-52.0); HEMOGLOBIN 11.1 g/dl (14.0-17.9); LYMPHOCYTES # (AUTO) 1.6 X10'3 (1.1-4.8); MEAN CORPUSCULAR HEMOGLOBIN 29.5 PG (27.0-31.0); MEAN PLATELET VOLUME 9.8 FL (7.4-10.4); MONOCYTES # (AUTO) 1.6 X10'3 (0-0.9); MONOCYTES % (AUTO) 6.8 % (2-12); NEUTROPHILS # (AUTO) 19.5 X10'3 (1.8-7.7); NEUTROPHILS % (AUTO) 85.1 % (42-75); PLATELET COUNT 110 X10'3 (140-440); RED BLOOD COUNT 3.75 X10'6 (4.70-6.10); RED CELL DISTRIBUTION WIDTH 14.9 % (11.5-14.5); WHITE BLOOD COUNT 22.9 X10'3 (4.5-11.0)
[2017-10-26 06:54] LABS: ALBUMIN 2.9 G/DL (3.4-5.0); ANION GAP 7 (8-16); BLOOD UREA NITROGEN 34 MG/DL (7-18); BUN/CREATININE RATIO 34.3 (5.4-32.0); CALCIUM 8.6 MG/DL (8.5-10.1); CHLORIDE 103 MMOL/L (99-107); CREATININE 0.99 MG/DL (0.60-1.10); GLUCOSE 173 MG/DL (70-104); MAGNESIUM 2.5 MG/DL (1.5-2.4); PHOSPHORUS 3.6 MG/DL (2.3-4.5); SODIUM 138 MMOL/L (135-145); TOTAL CARBON DIOXIDE 27.8 MMOL/L (24-32); eGFR 78 ML/MIN
[2017-10-26] MEDS: morphine 4 MG/ML inj SYRINge IV PRN (07:04)
[2017-10-26] MEDS: atorvastatin 10mg tablet PO SCH (07:58)
[2017-10-26] MEDS: aspirin 325mg tablet, delayed-release (Ecotrin) PO SCH (07:58)
[2017-10-26] MEDS: docusate sod 100mg capsule PO SCH ×2 (07:59→20:10)
[2017-10-26] MEDS: pantoprazole 40mg Tablet.DR PO SCH (07:59)
[2017-10-26] MEDS: mupirocin 2% ointment 22GM NS SCH (08:01)
[2017-10-26] MEDS: sodium chloride 0.45% 1,000 ML IV SCH (12:00)
[2017-10-26] MEDS: dexmedetomidin/NS 400mcg/100ml 100 ML IV SCH (15:51)
[2017-10-26] MEDS: lisinopril 5mg tablet PO SCH (20:10)
[2017-10-27] VITALS (20 sets, daily range): BP systolic 107–151; BP diastolic 58–92
[2017-10-27] MEDS: HYDROcodone/acetaminophen 10/325mg tab PO PRN ×5 (00:13→21:24)
[2017-10-27] MEDS: insulin regular, human inj. 100 UNITS in normal saline 100ml IV soln 100 ML IV SCH ×2 (03:12)
[2017-10-27 03:34] LABS: BASOPHILS % (AUTO) 0.2 % (0-1); EOSINOPHILS # (AUTO) 0.2 X10'3 (0-0.9); EOSINOPHILS % (AUTO) 0.8 % (0-6); HEMATOCRIT 30.8 % (42.0-52.0); HEMOGLOBIN 10.3 g/dl (14.0-17.9); LYMPHOCYTES # (AUTO) 3.4 X10'3 (1.1-4.8); LYMPHOCYTES % (AUTO) 18.6 % (21-51); MEAN CORPUSCULAR HEMOGLOBIN 29.4 PG (27.0-31.0); MEAN CORPUSCULAR HGB CONC 33.4 % (33.0-36.5); MEAN CORPUSCULAR VOLUME 87.9 FL (78-98); MEAN PLATELET VOLUME 10.5 FL (7.4-10.4); MONOCYTES # (AUTO) 1.7 X10'3 (0-0.9); MONOCYTES % (AUTO) 9.3 % (2-12); NEUTROPHILS # (AUTO) 13.1 X10'3 (1.8-7.7); NEUTROPHILS % (AUTO) 71.1 % (42-75); PLATELET COUNT 124 X10'3 (140-440); RED BLOOD COUNT 3.51 X10'6 (4.70-6.10); RED CELL DISTRIBUTION WIDTH 14.8 % (11.5-14.5); WHITE BLOOD COUNT 18.4 X10'3 (4.5-11.0)
[2017-10-27 03:47] LABS: ALBUMIN 2.8 G/DL (3.4-5.0); ANION GAP 4 (8-16); BLOOD UREA NITROGEN 31 MG/DL (7-18); BUN/CREATININE RATIO 35.2 (5.4-32.0); CALCIUM 8.6 MG/DL (8.5-10.1); CHLORIDE 105 MMOL/L (99-107); CREATININE 0.88 MG/DL (0.60-1.10); GLUCOSE 122 MG/DL (70-104); MAGNESIUM 2.1 MG/DL (1.5-2.4); PHOSPHORUS 3.1 MG/DL (2.3-4.5); POTASSIUM 4.7 MMOL/L (3.5-5.1); SODIUM 141 MMOL/L (135-145); TOTAL CARBON DIOXIDE 31.9 MMOL/L (24-32); eGFR 90 ML/MIN
[2017-10-27] MEDS: magnesium 2GM in 50ml NS 50 ML IV PRN (05:39)
[2017-10-27] MEDS: pantoprazole 40mg Tablet.DR PO SCH (06:53)
[2017-10-27] MEDS ORDERED: magnesium Cl slow-release 64mg tablet PO PRN (07:10)
[2017-10-27] MEDS ORDERED: potassium Cl 20 mEq SR tablet PO PRN ×2 (07:10)
[2017-10-27] MEDS ORDERED: potassium Cl 40MEQ/NS 500ml 500 ML IV PRN ×2 (07:10)
[2017-10-27] MEDS ORDERED: magnesium 2GM in 50ml NS 50 ML IV PRN (07:10)
[2017-10-27] MEDS ORDERED: magnesium 4gm in 100ml NS 100 ML IV PRN (07:10)
[2017-10-27] MEDS: magnesium Cl slow-release 64mg tablet PO SCH ×2 (08:00→20:00)
[2017-10-27] MEDS: potassium Cl 20 mEq SR tablet PO SCH ×2 (08:00→20:00)
[2017-10-27] MEDS: K and/or MAG REPLACEMENT MC SCH (08:33)
[2017-10-27] MEDS: docusate sod 100mg capsule PO SCH ×2 (09:15→20:23)
[2017-10-27] MEDS: atorvastatin 10mg tablet PO SCH (09:15)
[2017-10-27] MEDS: aspirin 325mg tablet, delayed-release (Ecotrin) PO SCH (09:15)
[2017-10-27 11:01] LABS: ACTIVATED CLOTTING TIME 120 SEC (101-148)
[2017-10-27 11:01] LABS: ACT @ 1.70 U 336 SEC (193-297); ACT @ 2.84 U 516 SEC (260-420); BASELINE ACT 149 SEC (101-148); PATIENT WEIGHT 89.0k KG
[2017-10-27] MEDS: lisinopril 5mg tablet PO SCH (20:23)
[2017-10-28] MEDS: HYDROcodone/acetaminophen 10/325mg tab PO PRN (02:30)
[2017-10-28 03:00] VITALS: BP 140/67
[2017-10-28 05:47] LABS: BASOPHILS % (AUTO) 0.3 % (0-1); EOSINOPHILS # (AUTO) 0.4 X10'3 (0-0.9); EOSINOPHILS % (AUTO) 2.9 % (0-6); HEMATOCRIT 29.7 % (42.0-52.0); HEMOGLOBIN 10.1 g/dl (14.0-17.9); LYMPHOCYTES # (AUTO) 3.3 X10'3 (1.1-4.8); LYMPHOCYTES % (AUTO) 24.1 % (21-51); MEAN CORPUSCULAR HEMOGLOBIN 29.3 PG (27.0-31.0); MEAN CORPUSCULAR VOLUME 86.1 FL (78-98); MEAN PLATELET VOLUME 10.2 FL (7.4-10.4); MONOCYTES # (AUTO) 1.5 X10'3 (0-0.9); NEUTROPHILS # (AUTO) 8.4 X10'3 (1.8-7.7); NEUTROPHILS % (AUTO) 61.7 % (42-75); PLATELET COUNT 136 X10'3 (140-440); RED BLOOD COUNT 3.45 X10'6 (4.70-6.10); RED CELL DISTRIBUTION WIDTH 14.3 % (11.5-14.5); WHITE BLOOD COUNT 13.7 X10'3 (4.5-11.0)
[2017-10-28 06:12] LABS: ALBUMIN 2.9 G/DL (3.4-5.0); ANION GAP 6 (8-16); BLOOD UREA NITROGEN 24 MG/DL (7-18); CALCIUM 8.4 MG/DL (8.5-10.1); CHLORIDE 104 MMOL/L (99-107); CREATININE 0.89 MG/DL (0.60-1.10); GLUCOSE 108 MG/DL (70-104); MAGNESIUM 1.9 MG/DL (1.5-2.4); SODIUM 140 MMOL/L (135-145); TOTAL CARBON DIOXIDE 30.5 MMOL/L (24-32); eGFR 88 ML/MIN
[2017-10-28 06:30] VITALS: BP 124/63
[2017-10-28] MEDS: aspirin 325mg tablet, delayed-release (Ecotrin) PO SCH (08:15)
[2017-10-28] MEDS: magnesium Cl slow-release 64mg tablet PO SCH (08:15)
[2017-10-28] MEDS: potassium Cl 20 mEq SR tablet PO SCH (08:15)
[2017-10-28] MEDS: docusate sod 100mg capsule PO SCH (08:15)
[2017-10-28] MEDS: pantoprazole 40mg Tablet.DR PO SCH (08:15)
[2017-10-28] MEDS: atorvastatin 10mg tablet PO SCH (08:15)
[2017-10-28] MEDS: K and/or MAG REPLACEMENT MC SCH (08:17)
[2017-10-28] MEDS ORDERED: COL100C PO (09:31)
[2017-10-28] MEDS ORDERED: HYDR-3972 PO (09:31)
[2017-10-28] MEDS ORDERED: ASPI-41 PO (09:31)
[2017-10-28 11:00] VITALS: BP 152/74
[2017-10-29] MEDS ORDERED: ASPI-1264 PO (16:37)
[2017-10-29] MEDS ORDERED: DOCU-267 PO (16:37)
== END 2017-10-28 13:30 | disposition home or self-care (01) | DRG 163 ==
LOC: ER 09:40 → ED HOLD 13:48 → PCU 3S 16:14 → ICU 2S 10-24 09:34 → PCU 3S 10-27 21:20
PROVIDERS: ADMIT Family Medicine; ATTEND Family Medicine
PROC: 4A023N8 Measurement of Cardiac Sampling and Pressure, Bilateral, Percutaneous Approach (ICD-10-PCS; 2017-10-23)
PROC: B2111ZZ Fluoroscopy of Multiple Coronary Arteries using Low Osmolar Contrast (ICD-10-PCS; 2017-10-23)
PROC: B2151ZZ Fluoroscopy of Left Heart using Low Osmolar Contrast (ICD-10-PCS; 2017-10-23)
PROC: 05HM33Z Insertion of Infusion Device into Right Internal Jugular Vein, Percutaneous Approach (ICD-10-PCS; 2017-10-24)
PROC: B543ZZA Ultrasonography of Right Jugular Veins, Guidance (ICD-10-PCS; 2017-10-24)
PROC: 4A133B3 Monitoring of Arterial Pressure, Pulmonary, Percutaneous Approach (ICD-10-PCS; 2017-10-24)
PROC: 02HQ32Z Insertion of Monitoring Device into Right Pulmonary Artery, Percutaneous Approach (ICD-10-PCS; 2017-10-24)
PROC: B24BZZ4 Ultrasonography of Heart with Aorta, Transesophageal (ICD-10-PCS; 2017-10-24)
PROC: 30233M1 Transfusion of Nonautologous Plasma Cryoprecipitate into Peripheral Vein, Percutaneous Approach (ICD-10-PCS; 2017-10-24)
PROC: 30233R1 Transfusion of Nonautologous Platelets into Peripheral Vein, Percutaneous Approach (ICD-10-PCS; 2017-10-24)
PROC: 5A1221Z Performance of Cardiac Output, Continuous (ICD-10-PCS; 2017-10-24)
PROC: 02RG08Z Replacement of Mitral Valve with Zooplastic Tissue, Open Approach (ICD-10-PCS; principal; 2017-10-24 06:54)
DX: I34.0 Nonrheumatic mitral (valve) insufficiency (principal); J44.9 Chronic obstructive pulmonary disease, unspecified; I10 Essential (primary) hypertension; F15.10 Other stimulant abuse, uncomplicated; B19.20 Unspecified viral hepatitis C without hepatic coma; N40.0 Benign prostatic hyperplasia without lower urinary tract symptoms; F17.200 Nicotine dependence, unspecified, uncomplicated; I25.10 Atherosclerotic heart disease of native coronary artery without angina pectoris; F12.10 Cannabis abuse, uncomplicated; G89.29 Other chronic pain; M54.9 Dorsalgia, unspecified; Z82.49 Family history of ischemic heart disease and other diseases of the circulatory system; Z71.6 Tobacco abuse counseling; Z80.3 Family history of malignant neoplasm of breast
CPT/HCPCS: 0232T; 36415; 36600; 71045; 80048; 80053; 80061; 80305; 81001; 82330; 82435; 82803; 82947; 82948; 83036; 83735; 83880; 84100; 84132; 84295; 84484; 85018; 85025; 85347; 85384; 85610; 85730; 86885; 86900; 86901; 86920; 87070; 87088; 93005; 93306; 93312; 93325; 93460; 93880; 93971; 94002; 94003; 94010; 94668; 94760; 97110; 97116; 97162; 97530; 99152; 99153; 99285; A4620; A6213; A6222; A6255; A6257; A6258; A6402; A6449; A7000; A7048; C1713; C1751; C1760; C1769; C1894; J0171; J0282; J0360; J0690; J1265; J1644; J1815; J1885; J1940; J2001; J2060; J2250; J2270; J2704; J2720; J3010; J3370; J3475; J3480; J3490; J7030; J7120; P9012; P9035; P9045; Q9967

== ENCOUNTER 2017-10-29 06:47 | Inpatient (IN) | payer MEDICAID ==
[~2017-10-29] VITALS: Ht 190.5 cm; Wt 80.0 kg
[~2017-10-29 06:47] MED LIST: ACET-812 PO; ASPI-41 PO; COL100C PO; GABA-532 PO; HYDR-3972 PO; IBUP-1985 PO; LISI-604 PO
[2017-10-29] MEDS ORDERED: normal saline 1000ML IV soln IV ONE (08:00)
[2017-10-29] MEDS ORDERED: vancomycin/NS 1 GM ADD-VANTAGE 250 ML IV ONE (08:00)
[2017-10-29] MEDS ORDERED: CefTRIAXone 2gm/D5W 50ml 50 ML IV ONE (08:00)
[2017-10-29] MEDS ORDERED: iohexol 300mg/ml 100ml inj. ONE (08:18)
[2017-10-29 08:27] LABS: PARTIAL THROMBOPLASTIN TIME 26 SECONDS (22-32); PROTHROMBIN TIME 10.6 SECONDS (9.0-12.0)
[2017-10-29 08:30] LABS: BASOPHILS # (AUTO) 0.1 X10'3 (0-0.2); BASOPHILS % (AUTO) 0.5 % (0-1); EOSINOPHILS # (AUTO) 0.3 X10'3 (0-0.9); EOSINOPHILS % (AUTO) 1.8 % (0-6); HEMATOCRIT 34.8 % (42.0-52.0); HEMOGLOBIN 12.1 g/dl (14.0-17.9); LYMPHOCYTES # (AUTO) 2.9 X10'3 (1.1-4.8); LYMPHOCYTES % (AUTO) 16.6 % (21-51); MEAN CORPUSCULAR HEMOGLOBIN 29.8 PG (27.0-31.0); MEAN CORPUSCULAR HGB CONC 34.7 % (33.0-36.5); MEAN CORPUSCULAR VOLUME 85.8 FL (78-98); MEAN PLATELET VOLUME 10.5 FL (7.4-10.4); MONOCYTES % (AUTO) 11.4 % (2-12); NEUTROPHILS % (AUTO) 69.7 % (42-75); RED BLOOD COUNT 4.05 X10'6 (4.70-6.10); RED CELL DISTRIBUTION WIDTH 14.3 % (11.5-14.5); WHITE BLOOD COUNT 17.2 X10'3 (4.5-11.0)
[2017-10-29 08:31] LABS: ALANINE AMINOTRANSFERASE 66 U/L (12-78); ALBUMIN 3.1 G/DL (3.4-5.0); ALBUMIN/GLOBULIN RATIO 0.8 (1.1-1.5); ALKALINE PHOSPHATASE 71 IU/L (46-116); ANION GAP 9 (8-16); ASPARTATE AMINO TRANSFERASE 49 U/L (10-37); BILIRUBIN,TOTAL 0.9 MG/DL (0.1-1.0); BLOOD UREA NITROGEN 16 MG/DL (7-18); BUN/CREATININE RATIO 18.8 (5.4-32.0); CALCIUM 8.8 MG/DL (8.5-10.1); CHLORIDE 99 MMOL/L (99-107); CREATININE 0.85 MG/DL (0.60-1.10); GLUCOSE 155 MG/DL (70-104); MAGNESIUM 1.6 MG/DL (1.5-2.4); SODIUM 136 MMOL/L (135-145); TOTAL CARBON DIOXIDE 27.9 MMOL/L (24-32); TOTAL PROTEIN 7.2 G/DL (6.4-8.2); eGFR > 90 ML/MIN
[2017-10-29 08:33] LABS: POTASSIUM 4.1 MMOL/L (3.5-5.1)
[2017-10-29 08:36] LABS: PLATELET COUNT 231 X10'3 (140-440)
[2017-10-29 08:36] LABS: CLARITY,URINE CLEAR (Clear); COLOR,URINE YELLOW (Yellow); GLUCOSE, URINE NEGATIVE (Neg); KETONES,URINE NEGATIVE (Neg); LEUKOCYTE ESTERASE ,URINE NEGATIVE (Neg); NITRITES, URINE NEGATIVE (Neg); OCCULT BLOOD,URINE TRACE-INTACT (Neg); PROTEIN,URINE NEGATIVE (Neg); UROBILINOGEN,URINE 0.2 E.U/dL (0.2-1.0)
[2017-10-29 08:37] LABS: UA COLLECTION TYPE CLN CATCH MIDSTREAM
[2017-10-29 08:39] LABS: LARGE PLATELETS FEW; PLATELET ESTIMATE NORMAL
[2017-10-29 08:41] LABS: MUCUS STRANDS FEW /LPF (Neg); SQUAMOUS EPITHELIAL CELL,UR FEW /LPF (FEW)
[2017-10-29 08:42] LABS: BACTERIA,URINE FEW /HPF (Neg); RBC,URINE 0-2 /HPF (0-2); WBC,URINE 0-4 /HPF (0-4)
[2017-10-29] MEDS ORDERED: ondansetron/PF 4mg/2ml inj IV PRN (10:10)
[2017-10-29] MEDS ORDERED: mag hydrox/Alum hydrox/simeth 30ml oral suspension PO PRN (10:10)
[2017-10-29] MEDS ORDERED: magnesium hydroxide 30ml (MOM) UD suspension PO PRN (10:10)
[2017-10-29] MEDS ORDERED: acetaminophen 325mg tablet PO PRN ×2 (10:10)
[2017-10-29 11:58] LABS: URINE AMPHETAMINE SCREEN NEGATIVE (Neg); URINE BARBITUATE SCREEN NEGATIVE (Neg); URINE BENZODIAZEPINES SCREEN NEGATIVE (Neg); URINE CANNABINOID SCREEN NEGATIVE (Neg); URINE COCAINE SCREEN NEGATIVE (Neg); URINE METHADONE SCREEN NEGATIVE (Neg); URINE OPIATE SCREEN POSITIVE (Neg); URINE PHENCYCLIDINE SCREEN NEGATIVE (Neg)
[2017-10-29] MEDS: normal saline 1000ml 1,000 ML IV SCH (12:25)
[2017-10-29] MEDS ORDERED: HYDROmorphone 2mg tablet PO PRN (14:50)
[2017-10-29] MEDS ORDERED: ASPI-1264 PO (16:37)
[2017-10-29] MEDS ORDERED: DOCU-267 PO (16:37)
[2017-10-29] MEDS: vancomycin/NS 1 GM ADD-VANTAGE 250 ML IV SCH (17:33)
[2017-10-29 19:00] VITALS: BP 118/56
[2017-10-29] MEDS: HYDROcodone/acetaminophen 5mg/325mg tablet PO PRN (19:10)
[2017-10-29 23:00] VITALS: BP 110/61
[2017-10-29] MEDS: temazepam 15mg capsule PO PRN (23:24)
[2017-10-30] VITALS (14 sets, daily range): BP systolic 97–156; BP diastolic 55–91
[2017-10-30] MEDS: normal saline 1000ml 1,000 ML IV SCH ×2 (00:26→14:44)
[2017-10-30] MEDS: vancomycin/NS 1 GM ADD-VANTAGE 250 ML IV SCH ×2 (02:25→10:14)
[2017-10-30] MEDS: HYDROcodone/acetaminophen 5mg/325mg tablet PO PRN ×4 (05:43→21:01)
[2017-10-30] MEDS ORDERED: VANCOMYCIN LEVEL IV NR (09:30)
[2017-10-30 10:11] LABS: BASOPHILS # (AUTO) 0.2 X10'3 (0-0.2); EOSINOPHILS # (AUTO) 0.5 X10'3 (0-0.9); EOSINOPHILS % (AUTO) 3.3 % (0-6); HEMATOCRIT 32.5 % (42.0-52.0); LYMPHOCYTES # (AUTO) 2.1 X10'3 (1.1-4.8); LYMPHOCYTES % (AUTO) 13.3 % (21-51); MEAN CORPUSCULAR HEMOGLOBIN 29.3 PG (27.0-31.0); MEAN CORPUSCULAR HGB CONC 33.8 % (33.0-36.5); MEAN CORPUSCULAR VOLUME 86.8 FL (78-98); MEAN PLATELET VOLUME 8.4 FL (7.4-10.4); MONOCYTES # (AUTO) 1.9 X10'3 (0-0.9); MONOCYTES % (AUTO) 12.2 % (2-12); NEUTROPHILS # (AUTO) 11.2 X10'3 (1.8-7.7); NEUTROPHILS % (AUTO) 70.2 % (42-75); PLATELET COUNT 252 X10'3 (140-440); RED BLOOD COUNT 3.75 X10'6 (4.70-6.10); RED CELL DISTRIBUTION WIDTH 14.1 % (11.5-14.5)
[2017-10-30] MEDS ORDERED: heparin 10,000 units/1 ML INJ IV ONE (16:40)
[2017-10-30] MEDS ORDERED: heparin 10,000 units/1 ML INJ IV PRN (16:40)
[2017-10-30] MEDS ORDERED: amiodarone 150mg/dext, iso-os 100 ML IV ONE (16:55)
[2017-10-30] MEDS: amiodarone/D5 360MG/200ML BAG 200 ML IV SCH ×2 (17:23→23:35)
[2017-10-30 19:25] LABS: BASOPHILS % (AUTO) 0.3 % (0-1); EOSINOPHILS # (AUTO) 0.6 X10'3 (0-0.9); EOSINOPHILS % (AUTO) 3.7 % (0-6); HEMATOCRIT 32.8 % (42.0-52.0); HEMOGLOBIN 11.1 g/dl (14.0-17.9); LYMPHOCYTES # (AUTO) 2.2 X10'3 (1.1-4.8); LYMPHOCYTES % (AUTO) 13.9 % (21-51); MEAN CORPUSCULAR HEMOGLOBIN 29.4 PG (27.0-31.0); MEAN CORPUSCULAR HGB CONC 33.7 % (33.0-36.5); MEAN CORPUSCULAR VOLUME 87.3 FL (78-98); MEAN PLATELET VOLUME 8.4 FL (7.4-10.4); MONOCYTES # (AUTO) 1.5 X10'3 (0-0.9); MONOCYTES % (AUTO) 9.6 % (2-12); NEUTROPHILS # (AUTO) 11.6 X10'3 (1.8-7.7); NEUTROPHILS % (AUTO) 72.5 % (42-75); PLATELET COUNT 275 X10'3 (140-440); RED BLOOD COUNT 3.76 X10'6 (4.70-6.10); RED CELL DISTRIBUTION WIDTH 14.3 % (11.5-14.5)
[2017-10-30] MEDS: lactobacillus rhamnosus 10,000 MMU CELLS/CAPSULE PO SCH (19:29)
[2017-10-30] MEDS: docusate sod 100mg capsule PO SCH (19:29)
[2017-10-30 19:37] LABS: PARTIAL THROMBOPLASTIN TIME 25 SECONDS (22-32); PROTHROMBIN TIME 10.6 SECONDS (9.0-12.0)
[2017-10-30] MEDS: temazepam 15mg capsule PO PRN (21:01)
[2017-10-31] VITALS (12 sets, daily range): BP systolic 100–164; BP diastolic 58–87
[2017-10-31] MEDS: HYDROcodone/acetaminophen 5mg/325mg tablet PO PRN ×4 (00:17→17:15)
[2017-10-31] MEDS ORDERED: magnesium Cl slow-release 64mg tablet PO PRN (01:00)
[2017-10-31] MEDS ORDERED: potassium Cl 40MEQ/NS 500ml 500 ML IV PRN ×2 (01:00)
[2017-10-31] MEDS ORDERED: potassium Cl 20 mEq SR tablet PO PRN ×2 (01:00)
[2017-10-31] MEDS ORDERED: magnesium 2GM in 50ml NS 50 ML IV PRN (01:00)
[2017-10-31] MEDS ORDERED: magnesium 4gm in 100ml NS 100 ML IV PRN (01:00)
[2017-10-31] MEDS ORDERED: magnesium 2GM in 50ml NS 50 ML IV ONE (01:00)
[2017-10-31] MEDS: amiodarone/D5 360MG/200ML BAG 200 ML IV SCH ×3 (04:59→16:45)
[2017-10-31] MEDS: normal saline 1000ml 1,000 ML IV SCH ×2 (05:33→20:07)
[2017-10-31 06:16] LABS: BASOPHILS # (AUTO) 0.1 X10'3 (0-0.2); BASOPHILS % (AUTO) 0.9 % (0-1); EOSINOPHILS # (AUTO) 0.7 X10'3 (0-0.9); EOSINOPHILS % (AUTO) 4.5 % (0-6); HEMATOCRIT 30.9 % (42.0-52.0); HEMOGLOBIN 10.7 g/dl (14.0-17.9); LYMPHOCYTES % (AUTO) 19.1 % (21-51); MEAN CORPUSCULAR HEMOGLOBIN 29.8 PG (27.0-31.0); MEAN CORPUSCULAR HGB CONC 34.6 % (33.0-36.5); MEAN CORPUSCULAR VOLUME 86.1 FL (78-98); MONOCYTES # (AUTO) 1.6 X10'3 (0-0.9); MONOCYTES % (AUTO) 10.1 % (2-12); NEUTROPHILS # (AUTO) 10.3 X10'3 (1.8-7.7); NEUTROPHILS % (AUTO) 65.4 % (42-75); PLATELET COUNT 283 X10'3 (140-440); RED BLOOD COUNT 3.59 X10'6 (4.70-6.10); RED CELL DISTRIBUTION WIDTH 14.1 % (11.5-14.5); WHITE BLOOD COUNT 15.7 X10'3 (4.5-11.0)
[2017-10-31] MEDS ORDERED: lisinopril 5mg tablet PO SCH (08:00)
[2017-10-31] MEDS ORDERED: aspirin 325mg tablet PO SCH (08:00)
[2017-10-31] MEDS ORDERED: K and/or MAG REPLACEMENT MC SCH (08:00)
[2017-10-31] MEDS ORDERED: potassium Cl 20 mEq SR tablet PO SCH (08:00)
[2017-10-31] MEDS: lactobacillus rhamnosus 10,000 MMU CELLS/CAPSULE PO SCH ×2 (08:05→20:05)
[2017-10-31] MEDS: docusate sod 100mg capsule PO SCH ×2 (08:06→20:05)
[2017-10-31] MEDS: magnesium Cl slow-release 64mg tablet PO SCH ×2 (08:06→20:06)
[2017-10-31] MEDS ORDERED: VANCOMYCIN LEVEL IV ONE (17:30)
[2017-10-31] MEDS ORDERED: amiodarone 200mg tablet PO SCH (20:00)
== END 2017-10-31 23:50 | disposition left against medical advice (07) | DRG 721 ==
LOC: ER 06:48 → ED HOLD 10:08 → PCU 3S 15:20
PROVIDERS: ADMIT Family Medicine; ATTEND Family Medicine
PROC: BW241ZZ Computerized Tomography (CT Scan) of Chest and Abdomen using Low Osmolar Contrast (ICD-10-PCS; principal; 2017-10-29)
DX: T81.4XXA Infection following a procedure, initial encounter (principal); J98.51 Mediastinitis; L03.313 Cellulitis of chest wall; I48.91 Unspecified atrial fibrillation; F17.210 Nicotine dependence, cigarettes, uncomplicated; Z53.21 Procedure and treatment not carried out due to patient leaving prior to being seen by health care provider; F10.10 Alcohol abuse, uncomplicated; G89.29 Other chronic pain; Y83.8 Other surgical procedures as the cause of abnormal reaction of the patient, or of later complication, without mention of misadventure at the time of the procedure; M54.9 Dorsalgia, unspecified; J44.9 Chronic obstructive pulmonary disease, unspecified; Z80.3 Family history of malignant neoplasm of breast; Z82.49 Family history of ischemic heart disease and other diseases of the circulatory system; Z95.2 Presence of prosthetic heart valve; Y92.89 Other specified places as the place of occurrence of the external cause
CPT/HCPCS: 36415; 71045; 71260; 80053; 80202; 80305; 81001; 83605; 83735; 84100; 84145; 85025; 85610; 85730; 87040; 93005; 96365; 96368; 99285; A6449; J0282; J0696; J3370; J3475; J7030; Q9967

== ENCOUNTER 2018-08-20 21:57 | Inpatient (IN) | payer MEDICAID | END 2018-08-23 13:50 | disposition home or self-care (01) | LOC: ER 21:57 → ED HOLD 23:52 → PCU 3S 08-21 02:17 ==

== ENCOUNTER 2019-06-05 23:01 | Inpatient (IN) | payer MEDICAID ==
[~2019-06-05] VITALS: Ht 193 cm; Wt 90.0 kg
[~2019-06-05 23:01] MED LIST changes: -ACET-812 PO; +ALBU6.7H9 INH; -ASPI-41 PO; +ASPI81TA52 PO; -COL100C PO; -GABA-532 PO; -HYDR-3972 PO; -IBUP-1985 PO; +METO25TA6 PO; +OMEP20TA23 PO; +TERA5CAP4 PO
[2019-06-06 00:20] LABS: BASOPHILS # (AUTO) 0.1 X10'3 (0-0.2); BASOPHILS % (AUTO) 0.9 % (0-1); EOSINOPHILS # (AUTO) 0.1 X10'3 (0-0.9); EOSINOPHILS % (AUTO) 1.1 % (0-6); LYMPHOCYTES # (AUTO) 1.3 X10'3 (1.1-4.8); MONOCYTES # (AUTO) 0.9 X10'3 (0-0.9); WHITE BLOOD COUNT 6.5 X10'3 (4.5-11.0)
[2019-06-06 00:21] LABS: HEMATOCRIT 46.7 % (42.0-52.0); LYMPHOCYTES % (AUTO) 19.7 % (21-51); MEAN CORPUSCULAR HEMOGLOBIN 30.1 PG (27.0-31.0); MEAN CORPUSCULAR HGB CONC 34.2 g/dL (33.0-36.5); MEAN CORPUSCULAR VOLUME 88.2 FL (78-98); MEAN PLATELET VOLUME 8.7 FL (7.4-10.4); MONOCYTES % (AUTO) 14.3 % (2-12); NEUTROPHILS # (AUTO) 4.2 X10'3 (1.8-7.7); PLATELET COUNT 182 X10'3 (140-440); RED CELL DISTRIBUTION WIDTH 14.1 % (11.5-14.5)
[2019-06-06 00:33] LABS: CLARITY,URINE CLEAR (Clear); COLOR,URINE YELLOW (Yellow); GLUCOSE, URINE NEGATIVE (Neg); KETONES,URINE NEGATIVE (Neg); LEUKOCYTE ESTERASE ,URINE SMALL (Neg); NITRITES, URINE NEGATIVE (Neg); OCCULT BLOOD,URINE SMALL (Neg); PROTEIN,URINE TRACE mg/dl (Neg); UROBILINOGEN,URINE 0.2 E.U/dL (0.2-1.0)
[2019-06-06 00:37] LABS: ALANINE AMINOTRANSFERASE 79 U/L (12-78); ALBUMIN 3.5 G/DL (3.4-5.0); ALBUMIN/GLOBULIN RATIO 0.9 (1.1-1.5); ALKALINE PHOSPHATASE 88 IU/L (46-116); ANION GAP 8 (8-16); ASPARTATE AMINO TRANSFERASE 54 U/L (10-37); BLOOD UREA NITROGEN 20 MG/DL (7-18); BUN/CREATININE RATIO 16.8 (5.4-32.0); CALCIUM 8.4 MG/DL (8.5-10.1); CHLORIDE 102 MMOL/L (99-107); CREATININE 1.19 MG/DL (0.60-1.10); GLUCOSE 143 MG/DL (70-104); POTASSIUM 3.8 MMOL/L (3.5-5.1); SODIUM 137 MMOL/L (135-145); TOTAL CARBON DIOXIDE 26.7 MMOL/L (24-32); TOTAL PROTEIN 7.3 G/DL (6.4-8.2); eGFR 63 ML/MIN
[2019-06-06 00:39] LABS: RBC,URINE 0-2 /HPF (0-2); UA COLLECTION TYPE CLN CATCH MIDSTREAM
[2019-06-06 00:40] LABS: BACTERIA,URINE FEW /HPF (Neg); SQUAMOUS EPITHELIAL CELL,UR FEW /LPF (FEW); WBC CLUMPS,URINE FEW /HPF (NEGATIVE)
--- NOTE | 2019-06-06 01:14 | NUR ---
INFORMED MD VILLALTA OF PT ELEVATED TROPONIN 0.09. VERBAL ORDER RECEIVED TO GIVE 324MG ASPIRIN PO NOW.
[2019-06-06] MEDS ORDERED: aspirin 81mg tab.chew PO ONE (01:15)
[2019-06-06] MEDS ORDERED: carVEDilol 3.125mg tablet PO ONE (02:00)
[2019-06-06] MEDS ORDERED: carVEDilol 3.125mg tablet PO SCH (02:00)
[2019-06-06] MEDS ORDERED: enoxaparin 100mg/ml syringe SUBCUT ONE (02:00)
[2019-06-06] MEDS ORDERED: nitroGLYCERIN 0.4mg/hour patch TD ONE (02:00)
[2019-06-06] MEDS ORDERED: normal saline 1000ml 1,000 ML IV ONE (02:03)
[2019-06-06] MEDS ORDERED: CefTRIAXone 1000mg IM Kit (w/lidocaine diluent) IM ONE (02:35)
[2019-06-06] MEDS ORDERED: azithromycin 250mg tablet PO ONE (02:35)
[2019-06-06] MEDS ORDERED: ondansetron/PF 4mg/2ml inj IV PRN (02:40)
[2019-06-06] MEDS ORDERED: nitroGLYCERIN 0.4mg SUBLingual tab SL PRN (02:40)
[2019-06-06] MEDS ORDERED: acetaminophen 325mg tablet PO PRN ×2 (02:40)
[2019-06-06] MEDS ORDERED: potassium CL 10mEq/100ml bag 100 ML IV PRN ×2 (02:40)
[2019-06-06] MEDS ORDERED: magnesium 2GM in 50ml NS 50 ML IV PRN (02:40)
[2019-06-06] MEDS ORDERED: magnesium 4gm in 100ml NS 100 ML IV PRN (02:40)
[2019-06-06] MEDS ORDERED: magnesium Cl slow-release 64mg tablet PO PRN (02:40)
[2019-06-06] MEDS ORDERED: HYDROcodone/acetaminophen 5mg/325mg tablet PO PRN (02:40)
[2019-06-06] MEDS ORDERED: mag hydrox/Alum hydrox/simeth 30ml oral suspension PO PRN (02:40)
[2019-06-06] MEDS ORDERED: magnesium hydroxide 30ml (MOM) UD suspension PO PRN (02:40)
[2019-06-06] MEDS ORDERED: potassium Cl 20 mEq SR tablet PO PRN ×2 (02:40)
[2019-06-06] MEDS ORDERED: morphine 2 MG/ML inj. syringe IV PRN ×2 (02:40)
[2019-06-06 02:57] LABS: CLARITY,URINE CLEAR (Clear); COLOR,URINE YELLOW (Yellow); GLUCOSE, URINE NEGATIVE (Neg); KETONES,URINE NEGATIVE (Neg); LEUKOCYTE ESTERASE ,URINE SMALL (Neg); NITRITES, URINE NEGATIVE (Neg); OCCULT BLOOD,URINE SMALL (Neg); PROTEIN,URINE NEGATIVE (Neg); UROBILINOGEN,URINE 0.2 E.U/dL (0.2-1.0)
[2019-06-06 03:05] LABS: UA COLLECTION TYPE URINAL; WBC,URINE 30-50 /HPF (0-4)
[2019-06-06 03:06] LABS: BACTERIA,URINE FEW /HPF (Neg); RBC,URINE 0-2 /HPF (0-2); SQUAMOUS EPITHELIAL CELL,UR FEW /LPF (FEW); WBC CLUMPS,URINE FEW /HPF (NEGATIVE)
[2019-06-06 03:08] LABS: URINE AMPHETAMINE SCREEN POSITIVE (Neg); URINE BARBITUATE SCREEN NEGATIVE (Neg); URINE BENZODIAZEPINES SCREEN NEGATIVE (Neg); URINE CANNABINOID SCREEN NEGATIVE (Neg); URINE COCAINE SCREEN NEGATIVE (Neg); URINE METHADONE SCREEN NEGATIVE (Neg); URINE OPIATE SCREEN NEGATIVE (Neg); URINE PHENCYCLIDINE SCREEN NEGATIVE (Neg)
[2019-06-06] MEDS ORDERED: CefTRIAXone 250MG IM Kit w/LIDOcaine IM ONE (03:40)
[2019-06-06] MEDS ORDERED: ipratropium/albuterol 3ml nebule NEB PRN (04:20)
--- NOTE | 2019-06-06 07:59 | NUR ---
Patient in room ED 5. I have received report from Livier RN and had the opportunity to ask questions and assume patient care.
[2019-06-06] MEDS ORDERED: K and/or MAG REPLACEMENT MC SCH (08:00)
[2019-06-06] MEDS ORDERED: aspirin 81mg tablet.DR PO SCH ×2 (08:00→08:32)
[2019-06-06] MEDS ORDERED: metoprolol tartrate 12.5mg (1/2 tablet) PO SCH ×2 (08:00→20:00)
[2019-06-06] MEDS ORDERED: CefTRIAXone/D5W-Rocephin 1gm 50 ML IV ONE (08:25)
--- NOTE | 2019-06-06 08:30 | NUR ---
Patient arrived to the unit on hospital bed accompanied by emergency department personnel. Vital signs obtained, telemetry monitoring initiated, patient belongings placed at the bedside, and patient oriented to room and call light.
[2019-06-06] MEDS ORDERED: lisinopril 5mg tablet PO SCH (08:32)
[2019-06-06] MEDS ORDERED: pantoprazole 40mg Tablet.DR PO SCH (08:34)
[2019-06-06 11:00] VITALS: BP 130/80
--- NOTE | 2019-06-06 13:26 | NUR ---
Page sent to Dr. Turpin. PAGER ID: [phone] MESSAGE: [phone] Denis R : INOCENTE Pt had 6 beat run of Vtach. Will continue to monitor. Thanks! Brianne/Suzette ext [phone]
[2019-06-06] MEDS ORDERED: enoxaparin 30mg/0.3ml syringe SUBCUT SCH (14:00)
[2019-06-06] MEDS ORDERED: enoxaparin 60mg/0.6ml syringe SUBCUT SCH (14:00)
--- NOTE | 2019-06-06 15:04 | NUR ---
PCT alerted RN that patient as insisting on leaving AMA. Upon talking to the patient, he states that "Nothing can be done for me any way. I have too many things going on right now and I know that I'm not going to get better." Education was provided to the patient about the risks and benefits of leaving. Pt still insisting on leaving to "take care of his dog". Dr. Dyana grande, will come to talk to him at the bedside.
--- NOTE | 2019-06-06 15:05 | NUR ---
Page sent to Dr. Turpin: PAGER ID: [phone] MESSAGE: [phone] Denis: FYI patient is insisting on leaving AMA. Thanks, Suzette [phone]
[2019-06-06] MEDS ORDERED: FURO20TA4 PO (15:35)
[2019-06-06] MEDS ORDERED: Terazosin 1mg capsule PO SCH (21:00)
[2019-06-07] MEDS ORDERED: CefTRIAXone 2gm/D5W 50ml 50 ML IV SCH (08:00)
== END 2019-06-06 15:58 | disposition left against medical advice (07) | DRG 194 ==
LOC: ER 23:02 → ED HOLD 06-06 02:39 → PCU 3S 06-06 08:30
PROVIDERS: ADMIT Hospitalist; ATTEND Internal Medicine
DX: I11.0 Hypertensive heart disease with heart failure (principal); I21.A1 Myocardial infarction type 2; I50.23 Acute on chronic systolic (congestive) heart failure; F15.10 Other stimulant abuse, uncomplicated; F17.200 Nicotine dependence, unspecified, uncomplicated; K40.90 Unilateral inguinal hernia, without obstruction or gangrene, not specified as recurrent; G89.29 Other chronic pain; N40.0 Benign prostatic hyperplasia without lower urinary tract symptoms; N39.0 Urinary tract infection, site not specified; Z53.29 Procedure and treatment not carried out because of patient's decision for other reasons; M54.9 Dorsalgia, unspecified; R36.9 Urethral discharge, unspecified; Z91.19 Patient's noncompliance with other medical treatment and regimen; Z79.899 Other long term (current) drug therapy; Z79.82 Long term (current) use of aspirin; Z91.14 Patient's other noncompliance with medication regimen
CPT/HCPCS: 36415; 71045; 80053; 80305; 81001; 83880; 84484; 85025; 87088; 87491; 93005; 93306; 96360; 96372; 99285; G0378; J0696; J1650

== ENCOUNTER 2019-07-19 06:17 | Inpatient (IN) | payer MEDICAID ==
[~2019-07-19] VITALS: Ht 190.5 cm; Wt 90.9 kg
[~2019-07-19 06:17] MED LIST changes: +FURO20TA4 PO; -TERA5CAP4 PO
--- NOTE | 2019-07-19 06:48 | NUR ---
SPOKE TO MD VILLALTA REGARDING IF PT. MIGHT BE RETAINING CO2 DUE TO PT. DOZING OFF. SAID TO PUT PT ON 1L O2. CURRENTLY SITTING OAT 93% R
[2019-07-19] MEDS ORDERED: methylPREDNISolone sod succ 125mg/2ml vial IV ONE (06:50)
[2019-07-19] MEDS ORDERED: nitroGLYCERIN 0.4mg/hour patch TD ONE (06:50)
[2019-07-19] MEDS ORDERED: albuterol 2.5 MG/3 ML nebule NEB ONE (06:50)
[2019-07-19 06:55] LABS: BASOPHILS # (AUTO) 0.1 X10'3 (0-0.2); BASOPHILS % (AUTO) 1.4 % (0-1); EOSINOPHILS # (AUTO) 0.3 X10'3 (0-0.9); EOSINOPHILS % (AUTO) 3.1 % (0-6); HEMATOCRIT 45.4 % (42.0-52.0); HEMOGLOBIN 15.3 g/dl (14.0-17.9); LYMPHOCYTES # (AUTO) 2.7 X10'3 (1.1-4.8); LYMPHOCYTES % (AUTO) 25.9 % (21-51); MEAN CORPUSCULAR HEMOGLOBIN 29.3 PG (27.0-31.0); MEAN CORPUSCULAR HGB CONC 33.8 g/dL (33.0-36.5); MEAN CORPUSCULAR VOLUME 86.6 FL (78-98); MEAN PLATELET VOLUME 8.9 FL (7.4-10.4); MONOCYTES # (AUTO) 0.9 X10'3 (0-0.9); MONOCYTES % (AUTO) 8.9 % (2-12); NEUTROPHILS # (AUTO) 6.3 X10'3 (1.8-7.7); NEUTROPHILS % (AUTO) 60.7 % (42-75); PLATELET COUNT 236 X10'3 (140-440); RED BLOOD COUNT 5.24 X10'6 (4.70-6.10); RED CELL DISTRIBUTION WIDTH 15.1 % (11.5-14.5); WHITE BLOOD COUNT 10.4 X10'3 (4.5-11.0)
[2019-07-19 06:58] LABS: ALANINE AMINOTRANSFERASE 43 U/L (12-78); ALBUMIN 3.2 G/DL (3.4-5.0); ALBUMIN/GLOBULIN RATIO 0.8 (1.1-1.5); ALKALINE PHOSPHATASE 87 IU/L (46-116); ANION GAP 6 (8-16); ASPARTATE AMINO TRANSFERASE 45 U/L (10-37); BILIRUBIN,TOTAL 1.1 MG/DL (0.1-1.0); BLOOD UREA NITROGEN 21 MG/DL (7-18); BUN/CREATININE RATIO 19.6 (5.4-32.0); CHLORIDE 107 MMOL/L (99-107); CREATININE 1.07 MG/DL (0.60-1.10); GLUCOSE 122 MG/DL (70-104); POTASSIUM 4.2 MMOL/L (3.5-5.1); SODIUM 138 MMOL/L (135-145); TOTAL CARBON DIOXIDE 24.9 MMOL/L (24-32); TOTAL PROTEIN 7.1 G/DL (6.4-8.2); eGFR 71 ML/MIN
[2019-07-19 07:26] LABS: ABG BASE EXCESS -1.8 mmol/L (-2.0-3.0); ABG HCO3 21.7 mmol/L (22.0-26.0); ABG OXYGEN SATURATION 93.6 % (95-98); ABG PCO2 (T) 33.6 mmHg (35.0-45.0); ABG PH (T) 7.427 (7.350-7.450); ABG PO2 (T) 67.3 mmHg (83-108); ALLEN'S TEST POSITIVE; FCOHb 1.5 % (0.5-1.5); FLOW 1 L/min; FMetHb 0.2 % (0.3-1.12); TOTAL HEMOGLOBIN 16.2 G/dl (14.0-17.9)
[2019-07-19 07:55] LABS: ETHANOL < 0.010 GM/DL (0.0-0.010); MAGNESIUM 1.8 MG/DL (1.5-2.4)
[2019-07-19] MEDS ORDERED: carVEDilol 12.5mg tablet PO SCH (07:55)
[2019-07-19] MEDS ORDERED: morphine 2 MG/ML inj. syringe IV PRN ×2 (08:05)
[2019-07-19] MEDS ORDERED: acetaminophen 325mg tablet PO PRN ×2 (08:05)
[2019-07-19] MEDS ORDERED: mag hydrox/Alum hydrox/simeth 30ml oral suspension PO PRN (08:05)
[2019-07-19] MEDS ORDERED: magnesium hydroxide 30ml (MOM) UD suspension PO PRN (08:05)
[2019-07-19] MEDS ORDERED: HYDROcodone/acetaminophen 10/325mg tab PO PRN (08:05)
[2019-07-19] MEDS ORDERED: ondansetron/PF 4mg/2ml inj IV PRN (08:05)
[2019-07-19] MEDS ORDERED: HYDROcodone/acetaminophen 5mg/325mg tablet PO PRN (08:05)
--- NOTE | 2019-07-19 08:07 | NUR ---
0755 - patient refused tocotinue using bipap -reaming press operatorsrinivasan ayala and dr mendez notified in person - patient placed back o 1 lpm NC
[2019-07-19] MEDS ORDERED: enoxaparin 100mg/ml syringe SUBCUT ONE (08:10)
[2019-07-19 08:16] LABS: PARTIAL THROMBOPLASTIN TIME 26 SECONDS (22-32)
[2019-07-19] MEDS: furosemide 40mg/4ml inj IV SCH ×2 (08:17→20:50)
[2019-07-19 09:40] VITALS: BP 145/99
[2019-07-19 11:00] VITALS: BP 141/96
--- NOTE | 2019-07-19 12:58 | NUR ---
Spoke with Dr. Weston, new order obtained for nicotine patch 21, and respiratory treatments.
[2019-07-19] MEDS: nicotine 21mg patch - 24 hr TD SCH (13:30)
[2019-07-19 15:00] VITALS: BP 144/97
[2019-07-19 18:00] VITALS: BP 141/90
--- NOTE | 2019-07-19 18:27 | NUR ---
Problems reprioritized. Patient report given, questions answered & plan of care reviewed with Mily SOTOMAYOR.
--- NOTE | 2019-07-19 19:25 | NUR ---
Patient in room PCU 3023. I have received report from Bette Strickland RN and had the opportunity to ask questions and assume patient care.
[2019-07-19] MEDS: carVEDilol 3.125mg tablet PO SCH (20:50)
--- NOTE | 2019-07-19 21:52 | NUR ---
PAGER ID: [phone] MESSAGE: Tim Barrios 58M states he does not take anything at home to help him sleep however has not slept in the past 2 weeks and would like a medication to help him this evening Thank you Mily SOTOMAYOR
[2019-07-19 22:00] VITALS: BP 145/85
[2019-07-20 02:00] VITALS: BP 152/97
--- NOTE | 2019-07-20 06:05 | NUR ---
Patient in room PCU 3023. I have received report from Mily SOTOMAYOR and had the opportunity to ask questions and assume patient care. Patient is resting in bed, no complaints offered a t this time. Will continue to monitor.
[2019-07-20 07:00] VITALS: BP 132/89
[2019-07-20] MEDS ORDERED: aspirin 81mg tablet.DR PO SCH (08:00)
[2019-07-20] MEDS ORDERED: enoxaparin 40mg/0.4ml syringe SUBCUT SCH (08:00)
[2019-07-20] MEDS ORDERED: nitroGLYCERIN 0.4mg/hour patch TD SCH (08:00)
[2019-07-20] MEDS ORDERED: lisinopril 10 MG tablet PO SCH (08:00)
[2019-07-20 08:42] LABS: BASOPHILS % (AUTO) 0.2 % (0-1); EOSINOPHILS % (AUTO) 0.1 % (0-6); HEMOGLOBIN 15.4 g/dl (14.0-17.9); LYMPHOCYTES % (AUTO) 4.6 % (21-51); MEAN CORPUSCULAR HGB CONC 33.4 g/dL (33.0-36.5); MEAN CORPUSCULAR VOLUME 86.9 FL (78-98); MONOCYTES # (AUTO) 1.3 X10'3 (0-0.9); NEUTROPHILS # (AUTO) 19.6 X10'3 (1.8-7.7); NEUTROPHILS % (AUTO) 89.1 % (42-75); PLATELET COUNT 240 X10'3 (140-440); RED BLOOD COUNT 5.29 X10'6 (4.70-6.10)
[2019-07-20 08:54] LABS: ALBUMIN 3.1 G/DL (3.4-5.0); ANION GAP 7 (8-16); BLOOD UREA NITROGEN 27 MG/DL (7-18); BUN/CREATININE RATIO 22.9 (5.4-32.0); CALCIUM 8.7 MG/DL (8.5-10.1); CHLORIDE 105 MMOL/L (99-107); CREATININE 1.18 MG/DL (0.60-1.10); POTASSIUM 4.3 MMOL/L (3.5-5.1); SODIUM 139 MMOL/L (135-145); TOTAL CARBON DIOXIDE 27.1 MMOL/L (24-32); eGFR 64 ML/MIN
[2019-07-20 08:56] LABS: GLUCOSE 215 MG/DL (70-104)
[2019-07-20] MEDS ORDERED: albuterol 2.5 MG/3 ML nebule NEB PRN (09:10)
[2019-07-20] MEDS: furosemide 40mg/4ml inj IV SCH (09:17)
[2019-07-20] MEDS: carVEDilol 3.125mg tablet PO SCH (09:19)
[2019-07-20 11:00] VITALS: BP 130/84
[2019-07-20] MEDS: nicotine 21mg patch - 24 hr TD SCH (11:23)
[2019-07-20] MEDS ORDERED: NICO-687 TD (12:08)
[2019-07-20] MEDS ORDERED: FURO40TA4 PO (12:08)
[2019-07-20] MEDS ORDERED: ASPI-1071 PO (12:08)
[2019-07-20] MEDS ORDERED: COR3.125T PO (12:08)
[2019-07-20] MEDS ORDERED: LISI10TA4 PO (12:08)
[2019-07-20] MEDS ORDERED: SPIR25TA PO (12:11)
[2019-07-20] MEDS ORDERED: SPIR25TA5 PO (12:11)
[2019-07-20] MEDS ORDERED: ALBU8.5H8 INH (12:11)
[2019-07-20] MEDS ORDERED: ISOS30TA6 PO (12:34)
--- NOTE | 2019-07-20 16:25 | NUR ---
Patient is discharged home with girlfriend. Patient reviewed packet before signing. All belongings sent with patient, PIV removed, telemetry d/c'd. Rx faxed to [facility] in [place]. Patient stable at time of discharge, patient refused wheelchair and walked down to car and left via private vehicle.
[2019-07-20] MEDS ORDERED: Melatonin 3mg tablet PO SCH (21:00)
== END 2019-07-20 16:19 | disposition home or self-care (01) | DRG 194 ==
LOC: ER 06:18 → ED HOLD 08:05 → PCU 3S 09:30
PROVIDERS: ADMIT Internal Medicine; ATTEND Internal Medicine
DX: I11.0 Hypertensive heart disease with heart failure (principal); I21.A1 Myocardial infarction type 2; J96.01 Acute respiratory failure with hypoxia; I50.43 Acute on chronic combined systolic (congestive) and diastolic (congestive) heart failure; F15.10 Other stimulant abuse, uncomplicated; J44.1 Chronic obstructive pulmonary disease with (acute) exacerbation; F17.210 Nicotine dependence, cigarettes, uncomplicated; G89.29 Other chronic pain; M54.9 Dorsalgia, unspecified; I25.10 Atherosclerotic heart disease of native coronary artery without angina pectoris; I25.2 Old myocardial infarction; Z79.82 Long term (current) use of aspirin; Z79.899 Other long term (current) drug therapy
CPT/HCPCS: 36415; 36600; 71045; 80048; 80053; 80320; 82803; 83605; 83735; 83880; 84484; 85018; 85025; 85610; 85730; 87040; 87081; 93005; 94640; 94660; 94760; 96374; 99285; G0378; J1650; J1940; J2930

== ENCOUNTER 2019-08-05 06:11 | Emergency (ER) | payer MEDICAID ==
[~2019-08-05] VITALS: Ht 193 cm; Wt 90.9 kg
[~2019-08-05 06:11] MED LIST changes: -ALBU6.7H9 INH; +ALBU8.5H8 INH; +ASPI-1071 PO; -ASPI81TA52 PO; +COR3.125T PO; -FURO20TA4 PO; +FURO40TA4 PO; +ISOS30TA6 PO; -LISI-604 PO; +LISI10TA4 PO; -METO25TA6 PO; +NICO-687 TD; -OMEP20TA23 PO; +SPIR25TA5 PO
[2019-08-05] MEDS ORDERED: morphine 4 MG/ML inj SYRINge IV ONE (06:40)
[2019-08-05] MEDS ORDERED: furosemide 10 MG/1 ML 10ml inj IV ONE (06:40)
--- NOTE | 2019-08-05 07:35 | NUR ---
INITIATED IV WITH ULTRASOUND, MEDICATED PT WITH LASIX IV PER ORDERS, PT WOULD PREFER NOT TO HAVE THE MORPHINE, PT AGREEABLE TO TRY LASIX TO SEE IF IT WORKS FIRST
[2019-08-05 07:59] LABS: BASOPHILS # (AUTO) 0.1 X10'3 (0-0.2); BASOPHILS % (AUTO) 0.8 % (0-1); EOSINOPHILS # (AUTO) 0.2 X10'3 (0-0.9); HEMATOCRIT 49.8 % (42.0-52.0); HEMOGLOBIN 16.3 g/dl (14.0-17.9); LYMPHOCYTES # (AUTO) 2.1 X10'3 (1.1-4.8); LYMPHOCYTES % (AUTO) 18.2 % (21-51); MEAN CORPUSCULAR HEMOGLOBIN 28.5 PG (27.0-31.0); MEAN CORPUSCULAR HGB CONC 32.7 g/dL (33.0-36.5); MEAN CORPUSCULAR VOLUME 87.2 FL (78-98); MEAN PLATELET VOLUME 9.5 FL (7.4-10.4); MONOCYTES # (AUTO) 1.1 X10'3 (0-0.9); MONOCYTES % (AUTO) 9.4 % (2-12); NEUTROPHILS # (AUTO) 8.1 X10'3 (1.8-7.7); NEUTROPHILS % (AUTO) 69.6 % (42-75); PLATELET COUNT 248 X10'3 (140-440); RED BLOOD COUNT 5.72 X10'6 (4.70-6.10); RED CELL DISTRIBUTION WIDTH 15.6 % (11.5-14.5); WHITE BLOOD COUNT 11.7 X10'3 (4.5-11.0)
[2019-08-05 08:15] LABS: ALANINE AMINOTRANSFERASE 55 U/L (12-78); ALBUMIN 3.5 G/DL (3.4-5.0); ALBUMIN/GLOBULIN RATIO 0.8 (1.1-1.5); ALKALINE PHOSPHATASE 120 IU/L (46-116); ANION GAP 8 (8-16); ASPARTATE AMINO TRANSFERASE 60 U/L (10-37); BILIRUBIN,TOTAL 1.1 MG/DL (0.1-1.0); BLOOD UREA NITROGEN 24 MG/DL (7-18); BUN/CREATININE RATIO 22.2 (5.4-32.0); CALCIUM 9.4 MG/DL (8.5-10.1); CHLORIDE 106 MMOL/L (99-107); CREATININE 1.08 MG/DL (0.60-1.10); GLUCOSE 112 MG/DL (70-104); POTASSIUM 4.5 MMOL/L (3.5-5.1); SODIUM 138 MMOL/L (135-145); TOTAL CARBON DIOXIDE 23.8 MMOL/L (24-32); TOTAL PROTEIN 7.8 G/DL (6.4-8.2); eGFR 70 ML/MIN
[2019-08-05] MEDS ORDERED: ALBU8.5H8 INH (08:27)
[2019-08-05] MEDS ORDERED: ASPI81TA52 PO (08:27)
[2019-08-05] MEDS ORDERED: FURO40TA4 PO (08:27)
[2019-08-05] MEDS ORDERED: SPIR25TA5 PO (08:27)
[2019-08-05] MEDS ORDERED: LISI10TA4 PO (08:27)
[2019-08-05] MEDS ORDERED: ISOS30TA9 PO (08:27)
[2019-08-05] MEDS ORDERED: CARV3.122 PO (08:27)
[2019-08-05] MEDS ORDERED: NICO-687 TD (08:27)
--- NOTE | 2019-08-05 09:51 | NUR ---
PT DISLODGED IV MOVING IN BED AND USING URINAL AT BEDSIDE, REMOVED IV, CANULA INTACT
--- NOTE | 2019-08-05 11:40 | NUR ---
PT RECEIVED CALL FROM FAMILY, PLACED PHONE IN ROOM AND TRANSFERED CALL TO PT IN BED 12
[2019-08-05 14:30] VITALS: BP 158/104
== END 2019-08-05 15:32 | disposition home or self-care (01) ==
LOC: ER 06:11
DX: I50.9 Heart failure, unspecified (principal); K40.90 Unilateral inguinal hernia, without obstruction or gangrene, not specified as recurrent; I25.10 Atherosclerotic heart disease of native coronary artery without angina pectoris; I25.2 Old myocardial infarction; I11.0 Hypertensive heart disease with heart failure; J44.9 Chronic obstructive pulmonary disease, unspecified; G89.29 Other chronic pain; F17.210 Nicotine dependence, cigarettes, uncomplicated; F15.90 Other stimulant use, unspecified, uncomplicated; Z98.890 Other specified postprocedural states; Z79.82 Long term (current) use of aspirin; Z79.899 Other long term (current) drug therapy
CPT/HCPCS: 36415; 71045; 76700; 80053; 83880; 84484; 85025; 93005; 96374; 96375; 99285; J1940; J2270

== ENCOUNTER 2020-04-02 14:09 | Emergency (ER) | payer MEDICAID ==
[~2020-04-02] VITALS: Ht 193 cm; Wt 90.0 kg
[~2020-04-02 14:09] MED LIST changes: -ASPI-1071 PO; +ASPI81TA52 PO; +CARV3.122 PO; -COR3.125T PO; -ISOS30TA6 PO; +ISOS30TA9 PO
[2020-04-02 14:11] VITALS: BP 216/137
[2020-04-02] MEDS ORDERED: DOXY100C76 PO (14:25)
[2020-04-02] MEDS ORDERED: CEPH500C5 PO (14:25)
== END 2020-04-02 14:34 | disposition home or self-care (01) ==
LOC: ER 14:10
DX: L03.90 Cellulitis, unspecified (principal); I25.10 Atherosclerotic heart disease of native coronary artery without angina pectoris; I24.9 Acute ischemic heart disease, unspecified; I10 Essential (primary) hypertension; J44.9 Chronic obstructive pulmonary disease, unspecified; G89.29 Other chronic pain; M54.9 Dorsalgia, unspecified; I38 Endocarditis, valve unspecified; F15.10 Other stimulant abuse, uncomplicated; Z79.899 Other long term (current) drug therapy
CPT/HCPCS: 99283

== ENCOUNTER 2020-09-23 07:33 | Inpatient (IN) | payer MEDICAID ==
[~2020-09-23] VITALS: Ht 182.9 cm; Wt 90.0 kg
[~2020-09-23 07:33] MED LIST changes: +LISI10TA27 PO; -LISI10TA4 PO
[2020-09-23] MEDS ORDERED: acetaminophen 325mg tablet PO STA (07:38)
[2020-09-23] MEDS ORDERED: CefTRIAXone 2gm/D5W 50ml BAG 50 ML IV ONE (07:40)
[2020-09-23] MEDS ORDERED: normal saline 1000ML IV soln IV ONE ×2 (07:40→12:50)
[2020-09-23] MEDS ORDERED: LIDOcaine 2% 10ml TOPICAL JELLY (Urojet) MM ONE (07:50)
--- NOTE | 2020-09-23 08:30 | NUR ---
ESCORTED PT TO CT.
[2020-09-23 08:36] LABS: CLARITY,URINE CLEAR (Clear); COLOR,URINE YELLOW (Yellow); GLUCOSE, URINE NEGATIVE (Neg); KETONES,URINE NEGATIVE (Neg); LEUKOCYTE ESTERASE ,URINE NEGATIVE (Neg); NITRITES, URINE NEGATIVE (Neg); OCCULT BLOOD,URINE MODERATE (Neg); PH,URINE 5.5 (4.8-8.0); PROTEIN,URINE NEGATIVE (Neg); UROBILINOGEN,URINE 0.2 E.U/dL (0.2-1.0)
[2020-09-23 08:41] LABS: BACTERIA,URINE NONE SEEN /HPF (Neg); RBC,URINE 0-2 /HPF (0-2); SQUAMOUS EPITHELIAL CELL,UR FEW /LPF (FEW); UA COLLECTION TYPE VOIDED; WBC,URINE 0-4 /HPF (0-4)
[2020-09-23 08:42] LABS: MUCUS STRANDS NONE SEEN /LPF (Neg)
--- NOTE | 2020-09-23 08:50 | NUR ---
DISCUSSED PT'S MENTAL STATUS INCLUDING BOUTS OF DELIRIUM WITH EDMD ALYCIA ALONG WITH INCREASING TEMP.
[2020-09-23] MEDS ORDERED: acetaminophen 1,000mg/100ml IV 100 ML IV ONE (08:55)
[2020-09-23 09:01] LABS: BASOPHILS % (AUTO) 0.1 % (0-1); EOSINOPHILS % (AUTO) 0 % (0-6); HEMATOCRIT 48.4 % (42.0-52.0); HEMOGLOBIN 16.1 g/dl (14.0-17.9); LYMPHOCYTES # (AUTO) 0.5 X10'3 (1.1-4.8); LYMPHOCYTES % (AUTO) 2.9 % (21-51); MEAN CORPUSCULAR HEMOGLOBIN 29.4 PG (27.0-31.0); MEAN CORPUSCULAR HGB CONC 33.4 g/dL (33.0-36.5); MEAN CORPUSCULAR VOLUME 88.1 FL (78-98); MONOCYTES # (AUTO) 1.3 X10'3 (0-0.9); MONOCYTES % (AUTO) 6.6 % (2-12); NEUTROPHILS # (AUTO) 17.2 X10'3 (1.8-7.7); NEUTROPHILS % (AUTO) 90.4 % (42-75); PLATELET COUNT 172 X10'3 (140-440); RED CELL DISTRIBUTION WIDTH 13.6 % (11.5-14.5)
[2020-09-23] MEDS ORDERED: vancomycin/NS 1 GM ADD-VANTAGE 250 ML IV ONE (09:10)
[2020-09-23 09:16] LABS: ALANINE AMINOTRANSFERASE 77 U/L (12-78); ALBUMIN 3.7 G/DL (3.4-5.0); ALBUMIN/GLOBULIN RATIO 0.9 (1.1-1.5); ALKALINE PHOSPHATASE 71 IU/L (46-116); ANION GAP 13 (8-16); ASPARTATE AMINO TRANSFERASE 52 U/L (10-37); BILIRUBIN,TOTAL 1.7 MG/DL (0.1-1.0); BLOOD UREA NITROGEN 23 MG/DL (7-18); CHLORIDE 97 MMOL/L (99-107); CREATININE 1.21 MG/DL (0.60-1.10); GLUCOSE 111 MG/DL (70-104); MAGNESIUM 1.3 MG/DL (1.5-2.4); POTASSIUM 3.2 MMOL/L (3.5-5.1); SODIUM 135 MMOL/L (135-145); TOTAL CARBON DIOXIDE 25.5 MMOL/L (24-32); TOTAL PROTEIN 7.7 G/DL (6.4-8.2); eGFR 62 ML/MIN
[2020-09-23] MEDS ORDERED: ondansetron/PF 4mg/2ml inj IV ONE (11:00)
[2020-09-23] MEDS ORDERED: morphine 4 MG/ML inj SYRINge IV ONE (11:00)
--- NOTE | 2020-09-23 11:00 | NUR ---
CONSENT SIGN BY PT FOR LP PROCEDURE
[2020-09-23 11:17] LABS: URINE AMPHETAMINE SCREEN POSITIVE (Neg); URINE BARBITUATE SCREEN NEGATIVE (Neg); URINE BENZODIAZEPINES SCREEN NEGATIVE (Neg); URINE CANNABINOID SCREEN NEGATIVE (Neg); URINE COCAINE SCREEN NEGATIVE (Neg); URINE METHADONE SCREEN NEGATIVE (Neg); URINE OPIATE SCREEN NEGATIVE (Neg); URINE PHENCYCLIDINE SCREEN NEGATIVE (Neg)
[2020-09-23 11:25] LABS: ETHANOL < 0.010 GM/DL (0.0-0.010)
[2020-09-23] MEDS ORDERED: magnesium 2GM in 50ml NS 50 ML IV ONE (11:45)
[2020-09-23 12:03] LABS: GLUCOSE,CSF 72 MG/DL (40-75); TOTAL PROTEIN,CSF 56 MG/DL (15-45)
[2020-09-23 12:04] LABS: APPEARANCE,CSF CLEAR; CSF SUPERNATANT COLOR COLORLESS; CSF VOLUME 8 ML; TUBE# COUNTED 1
[2020-09-23 12:13] LABS: APPEARANCE,CSF CLEAR; CSF RBC 1 /CU MM (0); CSF SUPERNATANT COLOR COLORLESS; CSF VOLUME 8 ML; CSF WBC CT 1 /CU MM (0-5); TUBE# COUNTED 4
[2020-09-23 12:14] LABS: CSF RBC 1 /CU MM (0); CSF WBC CT 2 /CU MM (0-5)
[2020-09-23 12:54] LABS: CREATINE KINASE 166 U/L (39-308)
[2020-09-23] MEDS ORDERED: magnesium 4gm in 100ml NS 100 ML IV PRN (13:25)
[2020-09-23] MEDS ORDERED: mag hydrox/Alum hydrox/simeth 30ml oral suspension PO PRN (13:25)
[2020-09-23] MEDS ORDERED: acetaminophen 325mg tablet PO PRN ×2 (13:25)
[2020-09-23] MEDS ORDERED: potassium Cl 40MEQ/1/2NS 520ml 520 ML IV PRN ×2 (13:25)
[2020-09-23] MEDS ORDERED: ondansetron/PF 4mg/2ml inj IV PRN (13:25)
[2020-09-23] MEDS ORDERED: magnesium 2GM in 50ml NS 50 ML IV PRN (13:25)
[2020-09-23] MEDS ORDERED: HYDROcodone/acetaminophen 5mg/325mg tablet PO PRN (13:25)
[2020-09-23] MEDS ORDERED: potassium Cl 20 mEq SR tablet PO PRN (13:25)
[2020-09-23] MEDS ORDERED: ISOS30TA84 PO (13:53)
[2020-09-23] MEDS: HYDROcodone/acetaminophen 10/325mg tab PO PRN ×2 (14:08→21:34)
[2020-09-23] MEDS ORDERED: iohexol 350MG/ML 100ml bottle IV ONE (14:26)
[2020-09-23] MEDS: vancomycin/NS 1 GM ADD-VANTAGE 250 ML IV SCH (15:07)
--- NOTE | 2020-09-23 15:14 | NUR ---
PT TO CT VIA PILAR WITH SALES AGENT PROTECTIVE SERVICE.
[2020-09-23] MEDS: normal saline 1000ml 1,000 ML IV SCH ×2 (16:22→23:25)
[2020-09-23 18:00] VITALS: BP 112/78
--- NOTE | 2020-09-23 18:13 | NUR ---
[place] [address], VS WHERE TAKEN, PT POSITION FOR COMFORT, CALL LIGHT IN PLACE 99.2 87 17 112/78 90% 2l
--- NOTE | 2020-09-23 18:30 | NUR ---
Patient in room PCU 3025. I have received report from Sandhya SOTOMAYOR and had the opportunity to ask questions and assume patient care.
[2020-09-23] MEDS: K and/or MAG REPLACEMENT MC SCH (20:00)
[2020-09-23] MEDS: potassium Cl 20 mEq SR tablet PO PRN (21:30)
[2020-09-23] MEDS: carVEDilol 3.125mg tablet PO SCH (21:30)
[2020-09-23] MEDS: enoxaparin 40mg/0.4ml syringe SQ SCH (21:36)
[2020-09-23 22:00] VITALS: BP 117/75
[2020-09-24] VITALS (7 sets, daily range): BP systolic 87–113; BP diastolic 49–80
[2020-09-24] MEDS ORDERED: nicotine 21mg patch - 24 hr TD ONE (01:35)
[2020-09-24] MEDS: HYDROcodone/acetaminophen 10/325mg tab PO PRN ×4 (01:50→21:11)
[2020-09-24] MEDS: potassium Cl 20 mEq SR tablet PO PRN (01:51)
[2020-09-24] MEDS: vancomycin/NS 1 GM ADD-VANTAGE 250 ML IV SCH ×2 (01:51→14:17)
--- NOTE | 2020-09-24 02:00 | NUR ---
One time Nicotine Patch removed due to C/O diaphoresis.
--- NOTE | 2020-09-24 03:00 | NUR ---
Dr. Weston notified of CP 01/16 complaint, EKG completed. Also made aware of positive Blood cultures. Dr. Weston to eval EKG.
--- NOTE | 2020-09-24 05:22 | NUR ---
3025B LENNY Barrios [facility]. POSITIVE BLOOD CULTURES FROM 09/23 1434 LEFT ARM AT 14HRS IN AEROBIC: GRAM + COCCI IN cLUSTERS.
[2020-09-24 06:56] LABS: ALANINE AMINOTRANSFERASE 71 U/L (12-78); ALBUMIN 2.7 G/DL (3.4-5.0); ALBUMIN/GLOBULIN RATIO 0.6 (1.1-1.5); ALKALINE PHOSPHATASE 61 IU/L (46-116); ANION GAP 10 (8-16); ASPARTATE AMINO TRANSFERASE 85 U/L (10-37); BILIRUBIN,TOTAL 1.6 MG/DL (0.1-1.0); BLOOD UREA NITROGEN 16 MG/DL (7-18); BUN/CREATININE RATIO 17.6 (5.4-32.0); CALCIUM 7.8 MG/DL (8.5-10.1); CHLORIDE 101 MMOL/L (99-107); CREATININE 0.91 MG/DL (0.60-1.10); GLUCOSE 97 MG/DL (70-104); MAGNESIUM 2.3 MG/DL (1.5-2.4); POTASSIUM 5.3 MMOL/L (3.5-5.1); SODIUM 132 MMOL/L (135-145); TOTAL CARBON DIOXIDE 21.3 MMOL/L (24-32); TOTAL PROTEIN 6.9 G/DL (6.4-8.2); eGFR 86 ML/MIN
--- NOTE | 2020-09-24 07:31 | NUR ---
Problems reprioritized. Patient report given, questions answered & plan of care reviewed with Trish SOTOMAYOR.
[2020-09-24] MEDS: nicotine 21mg patch - 24 hr TD SCH ×2 (07:37→07:40)
[2020-09-24] MEDS: CefTRIAXone/D5W-Rocephin 1gm 50 ML IV SCH (07:37)
[2020-09-24] MEDS: furosemide 20MG tablet PO SCH (07:38)
[2020-09-24] MEDS: aspirin 81mg tablet.DR PO SCH (07:38)
[2020-09-24] MEDS: isosorbide mononitrate 30mg tab.SR.24H PO SCH (07:38)
[2020-09-24] MEDS: carVEDilol 3.125mg tablet PO SCH ×2 (07:39→21:09)
[2020-09-24] MEDS: spironolactone 25 MG tablet PO SCH (07:39)
[2020-09-24] MEDS: lisinopril 10 MG tablet PO SCH (07:39)
[2020-09-24] MEDS: normal saline 1000ml 1,000 ML IV SCH ×2 (07:40→19:00)
[2020-09-24] MEDS: K and/or MAG REPLACEMENT MC SCH ×2 (08:00→20:00)
[2020-09-24 08:16] LABS: BASOPHILS % (AUTO) 0.2 % (0-1); EOSINOPHILS % (AUTO) 0.2 % (0-6); HEMATOCRIT 47.5 % (42.0-52.0); LYMPHOCYTES # (AUTO) 0.5 X10'3 (1.1-4.8); MEAN CORPUSCULAR HGB CONC 33.7 g/dL (33.0-36.5); MEAN CORPUSCULAR VOLUME 89.2 FL (78-98); MONOCYTES # (AUTO) 0.8 X10'3 (0-0.9); MONOCYTES % (AUTO) 6.4 % (2-12); NEUTROPHILS % (AUTO) 89.2 % (42-75); PLATELET COUNT 111 X10'3 (140-440); RED BLOOD COUNT 5.32 X10'6 (4.70-6.10); WHITE BLOOD COUNT 12.4 X10'3 (4.5-11.0)
[2020-09-24] MEDS ORDERED: iohexol 300mg/ml 100ml inj. ONE (11:19)
--- NOTE | 2020-09-24 13:20 | NUR ---
Received report from POISING INSPECTOR, Trish
[2020-09-24 14:32] LABS: ALBUMIN 2.5 G/DL (3.4-5.0); ANION GAP 8 (8-16); BLOOD UREA NITROGEN 17 MG/DL (7-18); BUN/CREATININE RATIO 20.7 (5.4-32.0); CALCIUM 7.6 MG/DL (8.5-10.1); CHLORIDE 103 MMOL/L (99-107); CREATININE 0.82 MG/DL (0.60-1.10); GLUCOSE 110 MG/DL (70-104); POTASSIUM 4.4 MMOL/L (3.5-5.1); SODIUM 136 MMOL/L (135-145); TOTAL CARBON DIOXIDE 25.4 MMOL/L (24-32); eGFR > 90 ML/MIN
--- NOTE | 2020-09-24 18:40 | NUR ---
Problems reprioritized. Patient report given, questions answered & plan of care reviewed with Erika RN.
[2020-09-24] MEDS: enoxaparin 40mg/0.4ml syringe SQ SCH (21:11)
[2020-09-25] VITALS (7 sets, daily range): BP systolic 112–170; BP diastolic 75–95
[2020-09-25] MEDS: HYDROcodone/acetaminophen 10/325mg tab PO PRN ×4 (01:27→21:22)
[2020-09-25] MEDS ORDERED: VANCOMYCIN LEVEL IV ONE (01:30)
[2020-09-25 02:48] LABS: ALANINE AMINOTRANSFERASE 81 U/L (12-78); ALBUMIN 2.5 G/DL (3.4-5.0); ALBUMIN/GLOBULIN RATIO 0.6 (1.1-1.5); ALKALINE PHOSPHATASE 61 IU/L (46-116); ANION GAP 6 (8-16); ASPARTATE AMINO TRANSFERASE 82 U/L (10-37); BILIRUBIN,TOTAL 0.9 MG/DL (0.1-1.0); BLOOD UREA NITROGEN 16 MG/DL (7-18); CALCIUM 8.3 MG/DL (8.5-10.1); CHLORIDE 105 MMOL/L (99-107); CREATININE 0.89 MG/DL (0.60-1.10); GLUCOSE 106 MG/DL (70-104); MAGNESIUM 1.8 MG/DL (1.5-2.4); SODIUM 137 MMOL/L (135-145); TOTAL CARBON DIOXIDE 26.4 MMOL/L (24-32); TOTAL PROTEIN 6.5 G/DL (6.4-8.2); VANCOMYCIN,TROUGH 7.6 UG/ML (6.0-14.0); eGFR 88 ML/MIN
[2020-09-25] MEDS: vancomycin/NS 1 GM ADD-VANTAGE 250 ML IV SCH ×3 (02:50→18:19)
[2020-09-25 02:51] LABS: POTASSIUM 4.6 MMOL/L (3.5-5.1)
--- NOTE | 2020-09-25 06:00 | NUR ---
Patient in room ORTHO 4020. I have received report from СВЕТЛАНА Davies and had the opportunity to ask questions and assume patient care.
--- NOTE | 2020-09-25 06:00 | NUR ---
Patient in room ORTHO 4020. I have received report from СВЕТЛАНА Davies and had the opportunity to ask questions and assume patient care.
[2020-09-25] MEDS: CefTRIAXone/D5W-Rocephin 1gm 50 ML IV SCH (07:15)
[2020-09-25] MEDS: normal saline 1000ml 1,000 ML IV SCH ×2 (07:24→21:07)
[2020-09-25] MEDS: nicotine 21mg patch - 24 hr TD SCH ×2 (08:00→08:14)
[2020-09-25] MEDS: K and/or MAG REPLACEMENT MC SCH ×2 (08:00→20:00)
[2020-09-25] MEDS: spironolactone 25 MG tablet PO SCH (08:15)
[2020-09-25] MEDS: carVEDilol 3.125mg tablet PO SCH ×2 (08:15→20:57)
[2020-09-25] MEDS: aspirin 81mg tablet.DR PO SCH (08:16)
[2020-09-25] MEDS: furosemide 20MG tablet PO SCH (08:17)
[2020-09-25] MEDS: lisinopril 10 MG tablet PO SCH (08:18)
[2020-09-25] MEDS: isosorbide mononitrate 30mg tab.SR.24H PO SCH (08:18)
[2020-09-25] MEDS: magnesium hydroxide 30ml (MOM) UD suspension PO PRN ×2 (08:19→16:07)
--- NOTE | 2020-09-25 12:16 | NUR ---
PAGER ID: [phone] MESSAGE: [phone] Leslee Barrios Can I get Ativan PO please, might be DZuleima. Lucita [phone]
[2020-09-25] MEDS: rifampin 300mg capsule PO SCH ×2 (12:20→20:58)
--- NOTE | 2020-09-25 12:28 | NUR ---
PATIENT OFF THE FLOOR FOR MRI
--- NOTE | 2020-09-25 15:52 | NUR ---
Patient off the unit to MRI. Daughter calling and wants to go over all the medications her father is on, she states that she is the POA. There is not a POA in patients chart. Discussed this issue with the daughter and explained that the POA goes into effect when the patient is unable to make decisions for himself. Daughter states "I know, I am a nurse." Apologized to daughter concerning this event and ended phone discussion.
[2020-09-25] MEDS ORDERED: gentamicin in saline, iso-osm 80 MG/50 ML premix IV SCH (16:00)
[2020-09-25] MEDS ORDERED: GADOTERATE MEGLUMINE 7.5 MMOL/15 ML VIAL IV ONE (16:13)
[2020-09-25] MEDS: gentamicin inj 80 MG in normal saline 100ml IV soln 98 ML IV SCH (16:42)
--- NOTE | 2020-09-25 17:18 | NUR ---
PAGER ID: [phone] MESSAGE: Clinton [phone], pt jonathan sorto [phone] states vision in R eye deteriorating even more now.
[2020-09-25] MEDS: lactobacillus rhamnosus 10,000 MMU CELLS/CAPSULE PO SCH (20:57)
[2020-09-25] MEDS: enoxaparin 40mg/0.4ml syringe SQ SCH (20:58)
[2020-09-26] MEDS: gentamicin inj 80 MG in normal saline 100ml IV soln 98 ML IV SCH ×3 (00:47→17:29)
[2020-09-26] MEDS: normal saline 1000ml 1,000 ML IV SCH ×3 (01:25→21:25)
[2020-09-26] MEDS ORDERED: VANCOMYCIN LEVEL IV ONE ×3 (01:30→19:30)
--- NOTE | 2020-09-26 02:00 | NUR ---
pt hard stick unable to get blood,pt due for vanco trough informed Alysia RX ok to hang vancomycin and will re time trough before 10 am dose.
[2020-09-26] MEDS: vancomycin/NS 1 GM ADD-VANTAGE 250 ML IV SCH ×2 (02:37→11:33)
[2020-09-26] MEDS: LORazepam 1 MG tablet PO PRN ×3 (03:21→16:24)
[2020-09-26] MEDS: HYDROcodone/acetaminophen 10/325mg tab PO PRN ×2 (03:26→17:29)
[2020-09-26 06:00] VITALS: BP_SYST 138; BP_SYST 159; BP_DIAS 81; BP_DIAS 96
--- NOTE | 2020-09-26 06:20 | NUR ---
Patient in room ORTHO 4020. I have received report from ariane RN and had the opportunity to ask questions and assume patient care.
--- NOTE | 2020-09-26 06:59 | NUR ---
Patient in room ORTHO 4011. I have received report from Whit SOTOMAYOR and had the opportunity to ask questions and assume patient care.
[2020-09-26] MEDS: carVEDilol 3.125mg tablet PO SCH ×2 (07:55→21:21)
[2020-09-26] MEDS: spironolactone 25 MG tablet PO SCH (07:55)
[2020-09-26] MEDS: aspirin 81mg tablet.DR PO SCH (07:56)
[2020-09-26] MEDS: lactobacillus rhamnosus 10,000 MMU CELLS/CAPSULE PO SCH ×2 (07:56→21:21)
[2020-09-26] MEDS: furosemide 20MG tablet PO SCH (07:57)
[2020-09-26] MEDS: isosorbide mononitrate 30mg tab.SR.24H PO SCH (07:57)
[2020-09-26] MEDS: lisinopril 10 MG tablet PO SCH (07:58)
[2020-09-26] MEDS: nicotine 21mg patch - 24 hr TD SCH ×2 (08:00→08:02)
[2020-09-26] MEDS: K and/or MAG REPLACEMENT MC SCH ×2 (08:00→20:00)
[2020-09-26 08:10] LABS: BASOPHILS # (AUTO) 0.1 X10'3 (0-0.2); BASOPHILS % (AUTO) 0.6 % (0-1); EOSINOPHILS # (AUTO) 0.1 X10'3 (0-0.9); LYMPHOCYTES # (AUTO) 1.2 X10'3 (1.1-4.8)
[2020-09-26 08:12] LABS: EOSINOPHILS % (AUTO) 0.6 % (0-6); HEMATOCRIT 44.9 % (42.0-52.0); LYMPHOCYTES % (AUTO) 10.6 % (21-51); MEAN CORPUSCULAR HEMOGLOBIN 30.2 PG (27.0-31.0); MEAN CORPUSCULAR HGB CONC 33.4 g/dL (33.0-36.5); MEAN CORPUSCULAR VOLUME 90.2 FL (78-98); MEAN PLATELET VOLUME 10.8 FL (7.4-10.4); MONOCYTES # (AUTO) 1.4 X10'3 (0-0.9); NEUTROPHILS # (AUTO) 8.8 X10'3 (1.8-7.7); NEUTROPHILS % (AUTO) 76.2 % (42-75); PLATELET COUNT 135 X10'3 (140-440); RED BLOOD COUNT 4.98 X10'6 (4.70-6.10); RED CELL DISTRIBUTION WIDTH 13.8 % (11.5-14.5); WHITE BLOOD COUNT 11.5 X10'3 (4.5-11.0)
[2020-09-26 08:37] LABS: ALANINE AMINOTRANSFERASE 98 U/L (12-78); ALBUMIN 2.6 G/DL (3.4-5.0); ALBUMIN/GLOBULIN RATIO 0.6 (1.1-1.5); ALKALINE PHOSPHATASE 80 IU/L (46-116); ANION GAP 7 (8-16); ASPARTATE AMINO TRANSFERASE 88 U/L (10-37); BILIRUBIN,TOTAL 2.2 MG/DL (0.1-1.0); BLOOD UREA NITROGEN 14 MG/DL (7-18); BUN/CREATININE RATIO 16.1 (5.4-32.0); CALCIUM 8.5 MG/DL (8.5-10.1); CHLORIDE 103 MMOL/L (99-107); CREATININE 0.87 MG/DL (0.60-1.10); GLUCOSE 101 MG/DL (70-104); MAGNESIUM 1.8 MG/DL (1.5-2.4); POTASSIUM 4.3 MMOL/L (3.5-5.1); SODIUM 138 MMOL/L (135-145); TOTAL CARBON DIOXIDE 27.9 MMOL/L (24-32); TOTAL PROTEIN 6.8 G/DL (6.4-8.2); eGFR 90 ML/MIN
[2020-09-26] MEDS: rifampin 300mg capsule PO SCH ×2 (10:26→21:20)
--- NOTE | 2020-09-26 10:28 | NUR ---
RIFAMPIN GIVEN AT 1025 DUE TO MEDICATION NOT BEING AVAILABLE EARLIER. Addendum: 09/26/20 at 1030 by Thania Palomino - Student EB [facility]
[2020-09-26] MEDS ORDERED: VANCOmycin 1250MG/NS 250ml Bag 250 ML IV SCH (12:00)
--- NOTE | 2020-09-26 12:14 | NUR ---
Problems reprioritized. Patient report given, questions answered & plan of care reviewed with Duane.
--- NOTE | 2020-09-26 12:21 | NUR ---
Student Medication Administration:For this medication-pass time frame 9897-4380, all medications were reviewed, administered and documented per hospital policy by Joel Palomino. Student documentation:I have reviewed and agree with all interventions, assessments performed and documented by Joel Palomino.
[2020-09-26] MEDS ORDERED: MESSAGE TO NURSING IV ONE (15:30)
--- NOTE | 2020-09-26 17:00 | NUR ---
spoke dr. lilly goddard about patient having critical gentamicin level. Dr. Goddard had me draw a new gentamicin trough and administer current dose. Dr. Goddard believes critical was a result of the draw time.
[2020-09-26 18:00] VITALS: BP 152/45
--- NOTE | 2020-09-26 18:39 | NUR ---
Problems reprioritized. Patient report given, questions answered & plan of care reviewed with Cassandra SOTOMAYOR.
[2020-09-26 18:44] VITALS: BP 135/69
[2020-09-26] MEDS ORDERED: LIDOcaine 2% 10ml TOPICAL JELLY (Urojet) MM ONE (18:55)
[2020-09-26] MEDS: enoxaparin 40mg/0.4ml syringe SQ SCH (21:20)
[2020-09-26] MEDS: VANCOmycin 1250MG/NS 250ml Bag 250 ML IV SCH (21:20)
[2020-09-26 21:30] VITALS: BP 143/84
[2020-09-26 22:00] VITALS: BP 154/87
--- NOTE | 2020-09-27 | NUR ---
GENTAMICIN LEVEL STILL PENDING. PER RACHEL IN PHARMACY, OK TO GIVE DOSE.
[2020-09-27] MEDS: gentamicin inj 80 MG in normal saline 100ml IV soln 98 ML IV SCH ×3 (00:23→15:44)
[2020-09-27] MEDS: LORazepam 1 MG tablet PO PRN ×2 (00:56→20:07)
--- NOTE | 2020-09-27 01:27 | NUR ---
Pt received Ativan and Milfay on prior shift. Was very difficult to arouse for assessment. Was able to take a few PO meds, but unable to stay awake to converse. Limited assessment completed.
[2020-09-27] MEDS: normal saline 1000ml 1,000 ML IV SCH ×2 (04:14→17:25)
[2020-09-27] MEDS: VANCOmycin 1250MG/NS 250ml Bag 250 ML IV SCH ×3 (04:14→20:07)
[2020-09-27 06:34] VITALS: BP 125/82
--- NOTE | 2020-09-27 06:42 | NUR ---
Patient in room ORTHO 4020. I have received report from samantha mattson and had the opportunity to ask questions and assume patient care.
[2020-09-27] MEDS: K and/or MAG REPLACEMENT MC SCH ×2 (08:00→20:00)
[2020-09-27] MEDS: rifampin 300mg capsule PO SCH ×2 (08:03→20:05)
[2020-09-27] MEDS: isosorbide mononitrate 30mg tab.SR.24H PO SCH (08:04)
[2020-09-27] MEDS: aspirin 81mg tablet.DR PO SCH (08:04)
[2020-09-27] MEDS: lactobacillus rhamnosus 10,000 MMU CELLS/CAPSULE PO SCH ×2 (08:04→20:05)
[2020-09-27] MEDS: nicotine 21mg patch - 24 hr TD SCH (08:04)
[2020-09-27] MEDS: carVEDilol 3.125mg tablet PO SCH ×2 (08:04→20:05)
[2020-09-27] MEDS: spironolactone 25 MG tablet PO SCH (08:04)
[2020-09-27] MEDS: lisinopril 10 MG tablet PO SCH (08:04)
[2020-09-27] MEDS: furosemide 20MG tablet PO SCH (08:04)
[2020-09-27 08:32] LABS: BASOPHILS # (AUTO) 0.1 X10'3 (0-0.2); BASOPHILS % (AUTO) 1.2 % (0-1); EOSINOPHILS # (AUTO) 0.1 X10'3 (0-0.9); EOSINOPHILS % (AUTO) 0.7 % (0-6); HEMOGLOBIN 15.8 g/dl (14.0-17.9); LYMPHOCYTES # (AUTO) 1.4 X10'3 (1.1-4.8); MEAN CORPUSCULAR HEMOGLOBIN 30.1 PG (27.0-31.0); MEAN CORPUSCULAR HGB CONC 34.3 g/dL (33.0-36.5); MEAN CORPUSCULAR VOLUME 87.5 FL (78-98); MEAN PLATELET VOLUME 10.1 FL (7.4-10.4); MONOCYTES % (AUTO) 16.7 % (2-12); NEUTROPHILS # (AUTO) 8.3 X10'3 (1.8-7.7); NEUTROPHILS % (AUTO) 69.4 % (42-75); PLATELET COUNT 144 X10'3 (140-440); RED BLOOD COUNT 5.25 X10'6 (4.70-6.10); RED CELL DISTRIBUTION WIDTH 13.5 % (11.5-14.5)
[2020-09-27 08:48] LABS: ALANINE AMINOTRANSFERASE 70 U/L (12-78); ALBUMIN 2.5 G/DL (3.4-5.0); ALBUMIN/GLOBULIN RATIO 0.6 (1.1-1.5); ALKALINE PHOSPHATASE 90 IU/L (46-116); ANION GAP 9 (8-16); ASPARTATE AMINO TRANSFERASE 44 U/L (10-37); BILIRUBIN,TOTAL 1.6 MG/DL (0.1-1.0); BLOOD UREA NITROGEN 12 MG/DL (7-18); BUN/CREATININE RATIO 14.8 (5.4-32.0); CALCIUM 8.8 MG/DL (8.5-10.1); CHLORIDE 103 MMOL/L (99-107); CREATININE 0.81 MG/DL (0.60-1.10); GLUCOSE 138 MG/DL (70-104); MAGNESIUM 1.8 MG/DL (1.5-2.4); POTASSIUM 3.6 MMOL/L (3.5-5.1); SODIUM 140 MMOL/L (135-145); TOTAL CARBON DIOXIDE 27.9 MMOL/L (24-32); TOTAL PROTEIN 6.8 G/DL (6.4-8.2); eGFR > 90 ML/MIN
[2020-09-27 10:38] VITALS: BP 143/100
--- NOTE | 2020-09-27 11:57 | NUR ---
Initial: Pt presented to ER with ALOC and generalized body aches; pt admit with metabolic encephalopathy , MRSA sepsis, bioprosthetic valve endocarditis, multifocal acute ischemic strokes secondary to septic emboli, and cardiomyopathy per EMR. Noted IV drug abuse per EMR. Pt PO intake average 75-100% on heart healthy diet, pt meeting estimated nutrient needs. Last BM 09/26, with PRN MoM available and given 09/25. Will continue to follow. Recommendations: 1) Continue heart healthy diet 2) Routine bowel care 3) Scaled wt this admit Addendum: 09/27/20 at [address] RD agrees w/ above international nurse note. Addendum: 09/27/20 at [address] Amended: Links added.
--- NOTE | 2020-09-27 12:00 | NUR ---
MARLENE PALACIOS CATH
[2020-09-27] MEDS: HYDROcodone/acetaminophen 10/325mg tab PO PRN ×2 (12:57→22:55)
[2020-09-27 18:00] VITALS: BP 160/95
--- NOTE | 2020-09-27 18:28 | NUR ---
Problems reprioritized. Patient report given, questions answered & plan of care reviewed with MLEISA SOTOMAYOR.
[2020-09-27] MEDS ORDERED: VANCOMYCIN LEVEL IV ONE (19:30)
[2020-09-27] MEDS: enoxaparin 40mg/0.4ml syringe SQ SCH (20:07)
[2020-09-27 22:00] VITALS: BP 150/87
--- NOTE | 2020-09-27 23:31 | NUR ---
Student documentation: I have reviewed all interventions, assessments performed and documented by Negrito Jean.Student Medication Administration: For this medication-pass time frame, all medication were reviewed, dispensed, administered and documented per hospital policy by Negrito Jean.
[2020-09-28] MEDS: gentamicin inj 80 MG in normal saline 100ml IV soln 98 ML IV SCH ×3 (00:35→18:00)
[2020-09-28] MEDS: normal saline 1000ml 1,000 ML IV SCH (03:25)
[2020-09-28] MEDS: VANCOmycin 1250MG/NS 250ml Bag 250 ML IV SCH ×3 (05:16→19:31)
[2020-09-28 05:50] LABS: BASOPHILS # (AUTO) 0.2 X10'3 (0-0.2); BASOPHILS % (AUTO) 1.4 % (0-1); EOSINOPHILS # (AUTO) 0.2 X10'3 (0-0.9); EOSINOPHILS % (AUTO) 1.3 % (0-6); HEMATOCRIT 46.4 % (42.0-52.0); HEMOGLOBIN 15.9 g/dl (14.0-17.9); LYMPHOCYTES % (AUTO) 14.9 % (21-51); MEAN CORPUSCULAR HGB CONC 34.4 g/dL (33.0-36.5); MEAN CORPUSCULAR VOLUME 87.2 FL (78-98); MEAN PLATELET VOLUME 9.4 FL (7.4-10.4); MONOCYTES # (AUTO) 2.4 X10'3 (0-0.9); MONOCYTES % (AUTO) 18.1 % (2-12); NEUTROPHILS # (AUTO) 8.5 X10'3 (1.8-7.7); NEUTROPHILS % (AUTO) 64.3 % (42-75); PLATELET COUNT 173 X10'3 (140-440); RED BLOOD COUNT 5.32 X10'6 (4.70-6.10); RED CELL DISTRIBUTION WIDTH 13.8 % (11.5-14.5); WHITE BLOOD COUNT 13.2 X10'3 (4.5-11.0)
[2020-09-28 06:00] VITALS: BP 145/67
[2020-09-28 06:01] LABS: ALANINE AMINOTRANSFERASE 60 U/L (12-78); ALBUMIN 2.7 G/DL (3.4-5.0); ALBUMIN/GLOBULIN RATIO 0.6 (1.1-1.5); ALKALINE PHOSPHATASE 120 IU/L (46-116); ANION GAP 9 (8-16); ASPARTATE AMINO TRANSFERASE 25 U/L (10-37); BILIRUBIN,TOTAL 0.9 MG/DL (0.1-1.0); BLOOD UREA NITROGEN 13 MG/DL (7-18); BUN/CREATININE RATIO 16.7 (5.4-32.0); CALCIUM 9.3 MG/DL (8.5-10.1); CHLORIDE 102 MMOL/L (99-107); CREATININE 0.78 MG/DL (0.60-1.10); GLUCOSE 115 MG/DL (70-104); MAGNESIUM 1.7 MG/DL (1.5-2.4); POTASSIUM 3.8 MMOL/L (3.5-5.1); SODIUM 138 MMOL/L (135-145); TOTAL PROTEIN 7.3 G/DL (6.4-8.2); eGFR > 90 ML/MIN
[2020-09-28] MEDS: spironolactone 25 MG tablet PO SCH (08:00)
[2020-09-28] MEDS: furosemide 20MG tablet PO SCH (08:00)
[2020-09-28] MEDS: lisinopril 10 MG tablet PO SCH (08:00)
[2020-09-28] MEDS: K and/or MAG REPLACEMENT MC SCH ×2 (08:00→19:32)
[2020-09-28] MEDS: nicotine 21mg patch - 24 hr TD SCH (08:00)
[2020-09-28] MEDS: carVEDilol 3.125mg tablet PO SCH ×2 (09:39→19:31)
[2020-09-28] MEDS: lactobacillus rhamnosus 10,000 MMU CELLS/CAPSULE PO SCH ×2 (09:39→19:31)
[2020-09-28] MEDS: aspirin 81mg tablet.DR PO SCH (09:41)
[2020-09-28] MEDS: rifampin 300mg capsule PO SCH ×2 (09:41→19:31)
[2020-09-28] MEDS: isosorbide mononitrate 30mg tab.SR.24H PO SCH (09:41)
[2020-09-28] MEDS: HYDROcodone/acetaminophen 10/325mg tab PO PRN ×2 (09:42→20:44)
[2020-09-28 10:33] LABS: CLARITY,URINE SLIGHTLY CLOUDY (Clear); COLOR,URINE YELLOW (Yellow); GLUCOSE, URINE NEGATIVE (Neg); KETONES,URINE NEGATIVE (Neg); LEUKOCYTE ESTERASE ,URINE NEGATIVE (Neg); NITRITES, URINE NEGATIVE (Neg); OCCULT BLOOD,URINE LARGE (Neg); PROTEIN,URINE 30 mg/dl (Neg); UROBILINOGEN,URINE 0.2 E.U/dL (0.2-1.0)
[2020-09-28 10:38] LABS: UA COLLECTION TYPE CLN CATCH MIDSTREAM
[2020-09-28 10:39] LABS: FINE GRANULAR CAST 0-3 /LPF (NEGATIVE); MUCUS STRANDS FEW /LPF (Neg); SQUAMOUS EPITHELIAL CELL,UR FEW /LPF (FEW)
[2020-09-28 10:40] LABS: BACTERIA,URINE FEW /HPF (Neg); RBC,URINE 50-100 /HPF (0-2); WBC,URINE 0-4 /HPF (0-4)
--- NOTE | 2020-09-28 10:45 | NUR ---
Received report from СВЕТЛАНА Willingham on ortho. Awaiting patient arrival to room 3009.
--- NOTE | 2020-09-28 11:28 | NUR ---
pt just now transported to tele
[2020-09-28] MEDS ORDERED: potassium Cl 20 mEq SR tablet PO STA (13:03)
[2020-09-28] MEDS ORDERED: magnesium 4gm in 100ml NS 100 ML IV ONE (13:05)
--- NOTE | 2020-09-28 13:06 | NUR ---
Orders to DC fluids and to keep K > 4, and Mg > [address] Mckinley.
[2020-09-28 13:30] LABS: TOTAL CELLS COUNTED 100
[2020-09-28 13:31] LABS: PLATELET ESTIMATE NORMAL
[2020-09-28 15:00] VITALS: BP 111/72
[2020-09-28] MEDS: LORazepam 1 MG tablet PO PRN (15:22)
[2020-09-28 18:00] VITALS: BP 186/79
--- NOTE | 2020-09-28 18:00 | NUR ---
Patient in room PCU 3009. I have received report from Lora SOTOMAYOR and had the opportunity to ask questions and assume patient care.
--- NOTE | 2020-09-28 18:24 | NUR ---
Problems reprioritized. Patient report given, questions answered & plan of care reviewed with СВЕТЛАНА Beal. Patient stable at transfer of care.
[2020-09-28] MEDS: phenazopyridine 100mg tablet PO SCH (19:31)
[2020-09-28] MEDS: enoxaparin 40mg/0.4ml syringe SQ SCH (19:32)
[2020-09-28 22:00] VITALS: BP 139/85
[2020-09-29] MEDS: gentamicin inj 80 MG in normal saline 100ml IV soln 98 ML IV SCH ×4 (00:27→23:21)
--- NOTE | 2020-09-29 00:48 | NUR ---
39 Beat Vtach PAGER ID: [phone] MESSAGE: [phone] Tim Barrios: 39 beat of vtaharsha (a few more from 36), asymptomatic, only complained of bladder spasms. Lian SOTOMAYOR [phone]
[2020-09-29 01:03] LABS: BASOPHILS # (AUTO) 0.1 X10'3 (0-0.2); BASOPHILS % (AUTO) 1.2 % (0-1); EOSINOPHILS # (AUTO) 0.3 X10'3 (0-0.9); EOSINOPHILS % (AUTO) 2.2 % (0-6); HEMATOCRIT 46.7 % (42.0-52.0); LYMPHOCYTES # (AUTO) 2.5 X10'3 (1.1-4.8); LYMPHOCYTES % (AUTO) 19.9 % (21-51); MEAN CORPUSCULAR HGB CONC 34.3 g/dL (33.0-36.5); MEAN CORPUSCULAR VOLUME 87.5 FL (78-98); MEAN PLATELET VOLUME 9.1 FL (7.4-10.4); MONOCYTES # (AUTO) 2.3 X10'3 (0-0.9); MONOCYTES % (AUTO) 18.3 % (2-12); NEUTROPHILS # (AUTO) 7.2 X10'3 (1.8-7.7); NEUTROPHILS % (AUTO) 58.4 % (42-75); PLATELET COUNT 215 X10'3 (140-440); RED BLOOD COUNT 5.34 X10'6 (4.70-6.10); RED CELL DISTRIBUTION WIDTH 13.8 % (11.5-14.5); WHITE BLOOD COUNT 12.3 X10'3 (4.5-11.0)
[2020-09-29 01:09] LABS: ALANINE AMINOTRANSFERASE 49 U/L (12-78); ALBUMIN 2.8 G/DL (3.4-5.0); ALBUMIN/GLOBULIN RATIO 0.6 (1.1-1.5); ALKALINE PHOSPHATASE 127 IU/L (46-116); ANION GAP 10 (8-16); ASPARTATE AMINO TRANSFERASE 21 U/L (10-37); BILIRUBIN,TOTAL 0.8 MG/DL (0.1-1.0); BLOOD UREA NITROGEN 13 MG/DL (7-18); BUN/CREATININE RATIO 14.6 (5.4-32.0); CALCIUM 9.6 MG/DL (8.5-10.1); CHLORIDE 100 MMOL/L (99-107); CREATININE 0.89 MG/DL (0.60-1.10); GLUCOSE 129 MG/DL (70-104); MAGNESIUM 2.6 MG/DL (1.5-2.4); POTASSIUM 3.9 MMOL/L (3.5-5.1); SODIUM 138 MMOL/L (135-145); TOTAL CARBON DIOXIDE 28.5 MMOL/L (24-32); TOTAL PROTEIN 7.5 G/DL (6.4-8.2); eGFR 88 ML/MIN
[2020-09-29 02:00] VITALS: BP 138/78
[2020-09-29] MEDS: LORazepam 1 MG tablet PO PRN ×4 (03:07→23:22)
[2020-09-29] MEDS: VANCOmycin 1250MG/NS 250ml Bag 250 ML IV SCH ×3 (04:05→19:38)
[2020-09-29 06:00] VITALS: BP 162/100
--- NOTE | 2020-09-29 06:07 | NUR ---
Problems reprioritized. Patient report given, questions answered & plan of care reviewed with Broderick SOTOMAYOR.
--- NOTE | 2020-09-29 06:10 | NUR ---
Patient in room PCU 3009. I have received report from Lian SOTOMAYOR and had the opportunity to ask questions and assume patient care.
[2020-09-29] MEDS: K and/or MAG REPLACEMENT MC SCH ×2 (08:00→20:00)
[2020-09-29] MEDS: nicotine 21mg patch - 24 hr TD SCH ×2 (08:00→14:09)
[2020-09-29] MEDS ORDERED: magnesium 4gm in 100ml NS 100 ML IV PRN (08:35)
[2020-09-29] MEDS ORDERED: potassium CL 10mEq/100ml bag 100 ML IV PRN (08:35)
[2020-09-29] MEDS ORDERED: potassium Cl 20mEq/100mL bag 100 ML IV PRN (08:35)
[2020-09-29] MEDS ORDERED: potassium Cl 40MEQ/1/2NS 520ml 520 ML IV PRN (08:35)
[2020-09-29] MEDS ORDERED: potassium Cl 20 mEq SR tablet PO PRN (08:35)
[2020-09-29] MEDS ORDERED: magnesium 2GM in 50ml NS 50 ML IV PRN (08:35)
[2020-09-29] MEDS ORDERED: potassium Cl 40MEQ/250ML bag 250 ML IV PRN (08:35)
[2020-09-29] MEDS: furosemide 20MG tablet PO SCH (08:44)
[2020-09-29] MEDS: isosorbide mononitrate 30mg tab.SR.24H PO SCH (08:44)
[2020-09-29] MEDS: rifampin 300mg capsule PO SCH ×2 (08:44→19:38)
[2020-09-29] MEDS: lactobacillus rhamnosus 10,000 MMU CELLS/CAPSULE PO SCH ×2 (08:44→19:38)
[2020-09-29] MEDS: carVEDilol 3.125mg tablet PO SCH ×2 (08:44→19:38)
[2020-09-29] MEDS: lisinopril 10 MG tablet PO SCH (08:44)
[2020-09-29] MEDS: aspirin 81mg tablet.DR PO SCH (08:44)
[2020-09-29] MEDS: phenazopyridine 100mg tablet PO SCH ×3 (08:45→17:22)
[2020-09-29] MEDS: spironolactone 25 MG tablet PO SCH (08:45)
[2020-09-29 08:53] LABS: PLATELET ESTIMATE NORMAL; TOTAL CELLS COUNTED 100
[2020-09-29 11:00] VITALS: BP 130/75
[2020-09-29] MEDS: HYDROcodone/acetaminophen 10/325mg tab PO PRN ×2 (13:27→21:09)
[2020-09-29 15:00] VITALS: BP 150/89
--- NOTE | 2020-09-29 15:49 | NUR ---
PAGER ID: [phone] MESSAGE: Re: Tim Barrios. Room: 3009. Pt complaining of burning with urination. Can we give something for bladder spasms? -Broderick [facility] #[phone] Dr. Mckinley paged concerning Pt's burning with urination.
--- NOTE | 2020-09-29 16:08 | NUR ---
PAGER ID: [phone] MESSAGE: [phone] PRINCE. IS THERE ANYTHING YOU CAN THINK OF THAT WILL HELP WITH HIS URINATION SPASM PAIN? SHAMA MCKAY
--- NOTE | 2020-09-29 16:37 | NUR ---
PAGER ID: [phone] MESSAGE: PLEASE CALL SHAMA MCKAY REGARDING [phone] FYFOIA. [phone]
--- NOTE | 2020-09-29 17:10 | NUR ---
DR WINTER CONTACTED RN. NEW ORDER FOR MORPHINE 2MG RECEIVED AND ADMINISTERED.
[2020-09-29] MEDS: morphine 2 MG/ML inj. syringe IV PRN ×2 (17:23→23:22)
[2020-09-29 18:00] VITALS: BP 138/82
--- NOTE | 2020-09-29 18:05 | NUR ---
Problems reprioritized. Patient report given, questions answered & plan of care reviewed with Lian KEYS and Caroline SOTOMAYOR.
[2020-09-29] MEDS: enoxaparin 40mg/0.4ml syringe SQ SCH (19:40)
--- NOTE | 2020-09-29 20:39 | NUR ---
Patient in room PCU 3009. I have received report from Broderick SOTOMAYOR and had the opportunity to ask questions and assume patient care.
[2020-09-29 22:00] VITALS: BP 122/72
--- NOTE | 2020-09-29 22:41 | NUR ---
Paged Triston Rm [phone], Tim Barrios: Pt on pyridium for bladder spasms but cannot have any until until morning. [place] and morphine ineffective. Can he have a B&O suppository? Thanks, Caroline [facility] [phone]
[2020-09-29] MEDS ORDERED: opium/belladonna alkaloids No. 15A 30mg rectal suppository RC PRN (22:50)
[2020-09-29] MEDS: opium/belladonna alkaloids No. 15A 30mg rectal suppository RC PRN (23:21)
--- NOTE | 2020-09-30 02:00 | NUR ---
Pt refused vitals or any disturbance until awake in AM. Pt states "I want to be in a coma"
[2020-09-30] MEDS: VANCOmycin 1250MG/NS 250ml Bag 250 ML IV SCH ×3 (03:11→19:54)
[2020-09-30 03:30] LABS: BASOPHILS # (AUTO) 0.1 X10'3 (0-0.2); BASOPHILS % (AUTO) 0.9 % (0-1); EOSINOPHILS # (AUTO) 0.3 X10'3 (0-0.9); EOSINOPHILS % (AUTO) 2.3 % (0-6); HEMATOCRIT 48.6 % (42.0-52.0); HEMOGLOBIN 16.3 g/dl (14.0-17.9); LYMPHOCYTES # (AUTO) 2.5 X10'3 (1.1-4.8); LYMPHOCYTES % (AUTO) 18.7 % (21-51); MEAN CORPUSCULAR HEMOGLOBIN 29.4 PG (27.0-31.0); MEAN CORPUSCULAR HGB CONC 33.6 g/dL (33.0-36.5); MEAN CORPUSCULAR VOLUME 87.7 FL (78-98); MEAN PLATELET VOLUME 8.7 FL (7.4-10.4); MONOCYTES % (AUTO) 14.4 % (2-12); NEUTROPHILS # (AUTO) 8.7 X10'3 (1.8-7.7); NEUTROPHILS % (AUTO) 63.7 % (42-75); PLATELET COUNT 265 X10'3 (140-440); RED BLOOD COUNT 5.54 X10'6 (4.70-6.10); RED CELL DISTRIBUTION WIDTH 13.8 % (11.5-14.5); WHITE BLOOD COUNT 13.6 X10'3 (4.5-11.0)
[2020-09-30 03:49] LABS: ALANINE AMINOTRANSFERASE 42 U/L (12-78); ALBUMIN 2.9 G/DL (3.4-5.0); ALBUMIN/GLOBULIN RATIO 0.6 (1.1-1.5); ALKALINE PHOSPHATASE 101 IU/L (46-116); ANION GAP 9 (8-16); ASPARTATE AMINO TRANSFERASE 21 U/L (10-37); BILIRUBIN,TOTAL 0.8 MG/DL (0.1-1.0); BLOOD UREA NITROGEN 20 MG/DL (7-18); BUN/CREATININE RATIO 20.4 (5.4-32.0); CALCIUM 9.2 MG/DL (8.5-10.1); CHLORIDE 102 MMOL/L (99-107); CREATININE 0.98 MG/DL (0.60-1.10); GLUCOSE 111 MG/DL (70-104); POTASSIUM 4.5 MMOL/L (3.5-5.1); SODIUM 139 MMOL/L (135-145); TOTAL CARBON DIOXIDE 27.9 MMOL/L (24-32); TOTAL PROTEIN 7.8 G/DL (6.4-8.2); eGFR 79 ML/MIN
--- NOTE | 2020-09-30 05:15 | NUR ---
Was in pt room assisting him in changing his gown and found a cigarette and mechanical integrity engineer in the pt's bed. Confiscated cigarette and threw it away. Will pass on to day shift to have security come up and accompany AM nurse to go through pt belongings as pt tends to get aggressive.
--- NOTE | 2020-09-30 05:16 | NUR ---
Orientee documentation: I have reviewed and agree with all medications, interventions, assessments performed and documented by Caroline SOTOMAYOR.
[2020-09-30 06:00] VITALS: BP 146/85
--- NOTE | 2020-09-30 06:04 | NUR ---
Problems reprioritized. Patient report given, questions answered & plan of care reviewed with Broderick SOTOMAYOR.
--- NOTE | 2020-09-30 06:05 | NUR ---
Patient in room PCU 3009. I have received report from Lian STOOMAYOR and Caroline SOTOMAYOR and had the opportunity to ask questions and assume patient care.
--- NOTE | 2020-09-30 06:05 | NUR ---
Problems reprioritized. Patient report given, questions answered & plan of care reviewed with СВЕТЛАНА Villafana.
[2020-09-30] MEDS: gentamicin inj 80 MG in normal saline 100ml IV soln 98 ML IV SCH ×3 (07:11→23:41)
[2020-09-30] MEDS: morphine 2 MG/ML inj. syringe IV PRN ×4 (07:12→19:57)
[2020-09-30] MEDS: phenazopyridine 100mg tablet PO SCH ×3 (07:12→19:56)
[2020-09-30] MEDS: rifampin 300mg capsule PO SCH ×2 (07:12→19:55)
[2020-09-30] MEDS: isosorbide mononitrate 30mg tab.SR.24H PO SCH (07:12)
[2020-09-30] MEDS: carVEDilol 3.125mg tablet PO SCH ×2 (07:13→19:55)
[2020-09-30] MEDS: lisinopril 10 MG tablet PO SCH (07:13)
[2020-09-30] MEDS: lactobacillus rhamnosus 10,000 MMU CELLS/CAPSULE PO SCH ×2 (07:13→19:55)
[2020-09-30] MEDS: aspirin 81mg tablet.DR PO SCH (07:13)
[2020-09-30] MEDS: K and/or MAG REPLACEMENT MC SCH ×2 (07:35→19:56)
[2020-09-30] MEDS: furosemide 20MG tablet PO SCH (07:35)
[2020-09-30] MEDS: spironolactone 25 MG tablet PO SCH (07:35)
[2020-09-30 11:00] VITALS: BP 121/74
[2020-09-30 15:00] VITALS: BP 120/69
[2020-09-30 18:00] VITALS: BP 134/74
--- NOTE | 2020-09-30 18:00 | NUR ---
Patient in room PCU 3012. I have received report from Broderick SOTOMAYOR and had the opportunity to ask questions and assume patient care.
--- NOTE | 2020-09-30 18:00 | NUR ---
Problems reprioritized. Patient report given, questions answered & plan of care reviewed with Lian SOTOMAYOR.
[2020-09-30] MEDS: LORazepam 1 MG tablet PO PRN (19:55)
[2020-09-30] MEDS: enoxaparin 40mg/0.4ml syringe SQ SCH (19:56)
--- NOTE | 2020-09-30 20:59 | NUR ---
PAGER ID: [phone] MESSAGE: [phone] Tim Barrios: Patient complaining of increased scrotal/groin pain and swelling. Lasix has been discontinued today. Morphine has not been effective. Would you like to order Lasix or one time dose of Tramadol? Lian SOTOMAYOR [phone]
[2020-09-30] MEDS: HYDROcodone/acetaminophen 10/325mg tab PO PRN (21:15)
[2020-09-30] MEDS: opium/belladonna alkaloids No. 15A 30mg rectal suppository RC PRN (21:16)
[2020-09-30 22:00] VITALS: BP 109/69
--- NOTE | 2020-09-30 22:00 | NUR ---
SMOKING IN BATHROOM Bathroom was found full of cigarette smoke when reassessing the effectiveness of NORCO 10mg for pain. cattle trader was notified and both of us went into the room to look through all belongings for the cigarettes and rn referral. One whole pack was found along with the rn referral. MD Goldstein was notified. Patient is now angry about the confiscation of his cigarettes and rn referral. Patient is also threatening AMA. Will continue to monitor.
[2020-09-30] MEDS ORDERED: HYDROmorphone 1 mg/ml syringe IV ONE (22:10)
[2020-10-01] MEDS: LORazepam 1 MG tablet PO PRN (01:46)
[2020-10-01 02:00] VITALS: BP 126/80
[2020-10-01 02:52] LABS: BASOPHILS # (AUTO) 0.2 X10'3 (0-0.2); BASOPHILS % (AUTO) 1.1 % (0-1); EOSINOPHILS # (AUTO) 0.3 X10'3 (0-0.9); EOSINOPHILS % (AUTO) 1.8 % (0-6); HEMATOCRIT 47.5 % (42.0-52.0); HEMOGLOBIN 16.2 g/dl (14.0-17.9); LYMPHOCYTES # (AUTO) 2.6 X10'3 (1.1-4.8); LYMPHOCYTES % (AUTO) 17.3 % (21-51); MEAN CORPUSCULAR HEMOGLOBIN 29.9 PG (27.0-31.0); MEAN CORPUSCULAR HGB CONC 34.1 g/dL (33.0-36.5); MEAN CORPUSCULAR VOLUME 87.8 FL (78-98); MEAN PLATELET VOLUME 8.9 FL (7.4-10.4); MONOCYTES # (AUTO) 1.8 X10'3 (0-0.9); MONOCYTES % (AUTO) 11.5 % (2-12); NEUTROPHILS # (AUTO) 10.4 X10'3 (1.8-7.7); NEUTROPHILS % (AUTO) 68.3 % (42-75); PLATELET COUNT 317 X10'3 (140-440); RED BLOOD COUNT 5.41 X10'6 (4.70-6.10); RED CELL DISTRIBUTION WIDTH 14.1 % (11.5-14.5); WHITE BLOOD COUNT 15.3 X10'3 (4.5-11.0)
[2020-10-01 03:16] LABS: ALANINE AMINOTRANSFERASE 39 U/L (12-78); ALBUMIN/GLOBULIN RATIO 0.6 (1.1-1.5); ALKALINE PHOSPHATASE 104 IU/L (46-116); ANION GAP 9 (8-16); ASPARTATE AMINO TRANSFERASE 22 U/L (10-37); BILIRUBIN,TOTAL 0.9 MG/DL (0.1-1.0); BLOOD UREA NITROGEN 18 MG/DL (7-18); BUN/CREATININE RATIO 18.2 (5.4-32.0); CALCIUM 9.2 MG/DL (8.5-10.1); CHLORIDE 101 MMOL/L (99-107); CREATININE 0.99 MG/DL (0.60-1.10); GLUCOSE 124 MG/DL (70-104); POTASSIUM 4.4 MMOL/L (3.5-5.1); SODIUM 137 MMOL/L (135-145); TOTAL CARBON DIOXIDE 27.5 MMOL/L (24-32); TOTAL PROTEIN 8.1 G/DL (6.4-8.2); eGFR 78 ML/MIN
[2020-10-01] MEDS: VANCOmycin 1250MG/NS 250ml Bag 250 ML IV SCH (03:54)
--- NOTE | 2020-10-01 06:25 | NUR ---
Patient in room PCU 3009. I have received report from СВЕТЛАНА Beal and had the opportunity to ask questions and assume patient care.
[2020-10-01 06:30] VITALS: BP 126/66
--- NOTE | 2020-10-01 06:42 | NUR ---
Problems reprioritized. Patient report given, questions answered & plan of care reviewed with Anna RN.
[2020-10-01] MEDS: K and/or MAG REPLACEMENT MC SCH (07:23)
--- NOTE | 2020-10-01 07:30 | NUR ---
Pt states he is leaving AMA. Pt already removed tele leads. Informed pt of the AMA process & reasons to not leave. Pt states, "I am leaving" & agreed to have IV DC'd & sign the AMA form. notified.
--- NOTE | 2020-10-01 08:00 | NUR ---
Pt left without having IV DC'd or signing the AMA form. notified.
--- NOTE | 2020-10-01 08:15 | NUR ---
Pt left before able to perform any physical assessments or administer any meds.
--- NOTE | 2020-10-01 08:22 | NUR ---
Per Dr Mckinley request: reported pt left w/IV in to [facility]
== END 2020-10-01 08:01 | disposition left against medical advice (07) | DRG 206 ==
LOC: ER 07:33 → ED HOLD 13:25 → PCU 3S 17:52 → ORTHO 4S 09-24 13:45 → PCU 3S 09-28 11:41
PROVIDERS: ADMIT Family Medicine; ATTEND Family Medicine
PROC: 009U3ZZ Drainage of Spinal Canal, Percutaneous Approach (ICD-10-PCS; principal; 2020-09-23)
PROC: B4201ZZ Computerized Tomography (CT Scan) of Abdominal Aorta using Low Osmolar Contrast (ICD-10-PCS; 2020-09-23)
PROC: B4241ZZ Computerized Tomography (CT Scan) of Superior Mesenteric Artery using Low Osmolar Contrast (ICD-10-PCS; 2020-09-23)
PROC: B4281ZZ Computerized Tomography (CT Scan) of Bilateral Renal Arteries using Low Osmolar Contrast (ICD-10-PCS; 2020-09-23)
PROC: B42H1ZZ Computerized Tomography (CT Scan) of Bilateral Lower Extremity Arteries using Low Osmolar Contrast (ICD-10-PCS; 2020-09-23)
PROC: B4211ZZ Computerized Tomography (CT Scan) of Celiac Artery using Low Osmolar Contrast (ICD-10-PCS; 2020-09-23)
PROC: BW211ZZ Computerized Tomography (CT Scan) of Abdomen and Pelvis using Low Osmolar Contrast (ICD-10-PCS; 2020-09-24)
DX: T82.6XXA Infection and inflammatory reaction due to cardiac valve prosthesis, initial encounter (principal); A41.02 Sepsis due to Methicillin resistant Staphylococcus aureus; I63.9 Cerebral infarction, unspecified; G93.41 Metabolic encephalopathy; I47.2 Ventricular tachycardia; E83.42 Hypomagnesemia; H44.001 Unspecified purulent endophthalmitis, right eye; E87.1 Hypo-osmolality and hyponatremia; I42.9 Cardiomyopathy, unspecified; I11.0 Hypertensive heart disease with heart failure; I50.22 Chronic systolic (congestive) heart failure; E87.5 Hyperkalemia; I33.0 Acute and subacute infective endocarditis; G89.29 Other chronic pain; J44.9 Chronic obstructive pulmonary disease, unspecified; K40.20 Bilateral inguinal hernia, without obstruction or gangrene, not specified as recurrent; M54.9 Dorsalgia, unspecified; Y83.1 Surgical operation with implant of artificial internal device as the cause of abnormal reaction of the patient, or of later complication, without mention of misadventure at the time of the procedure; Z20.822 Contact with and (suspected) exposure to COVID-19; Z53.29 Procedure and treatment not carried out because of patient's decision for other reasons; F17.210 Nicotine dependence, cigarettes, uncomplicated; E87.6 Hypokalemia; R74.01 Elevation of levels of liver transaminase levels; N28.89 Other specified disorders of kidney and ureter; R30.0 Dysuria; I25.10 Atherosclerotic heart disease of native coronary artery without angina pectoris; F15.10 Other stimulant abuse, uncomplicated; H54.61 Unqualified visual loss, right eye, normal vision left eye; I25.2 Old myocardial infarction; Z86.79 Personal history of other diseases of the circulatory system; Z91.19 Patient's noncompliance with other medical treatment and regimen; Z95.2 Presence of prosthetic heart valve; Z79.899 Other long term (current) drug therapy; Z79.82 Long term (current) use of aspirin; Z82.49 Family history of ischemic heart disease and other diseases of the circulatory system; Z80.3 Family history of malignant neoplasm of breast; Z71.6 Tobacco abuse counseling; Z71.51 Drug abuse counseling and surveillance of drug abuser
CPT/HCPCS: 36415; 62270; 70450; 70551; 70552; 71045; 74174; 74176; 74177; 76775; 76937; 80048; 80053; 80202; 80305; 80320; 81001; 82550; 82945; 83605; 83735; 84145; 84157; 85007; 85025; 85610; 87015; 87040; 87070; 87077; 87081; 87186; 87502; 87503; 87635; 89051; 93005; 93306; 93308; 96365; 97116; 97161; 97530; 99285; A9575; C9803; G0378; J0131; J0696; J1170; J1580; J1650; J2270; J2405; J3370; J3475; J7030; Q9967

== ENCOUNTER 2020-10-01 16:17 | Inpatient (IN) | payer MEDICAID ==
[~2020-10-01] VITALS: Ht 190.5 cm; Wt 90.0 kg
[~2020-10-01 16:17] MED LIST changes: -ALBU8.5H8 INH; +ISOS30TA84 PO; -ISOS30TA9 PO
[2020-10-01] MEDS ORDERED: VANCOmycin 1250MG/NS 250ml Bag 250 ML IV STA (16:34)
[2020-10-01] MEDS ORDERED: gentamicin in saline, iso-osm 80 MG/50 ML premix IV ONE (16:35)
[2020-10-01] MEDS ORDERED: gentamicin inj 80 MG in normal saline 100ml IV soln 98 ML IV ONE (16:45)
[2020-10-01 17:02] VITALS: BP 130/73
--- NOTE | 2020-10-01 17:15 | NUR ---
PT DOES NOT WANT NICOTINE PATCH, THINKS IT GIVES HIM A HEADACHE. HE DOES NOT WANT OPIODS. HE WANTS SOMEONE TO NUMB HIS SCROTUM.
[2020-10-01] MEDS ORDERED: LIDOcaine 2% 10ml TOPICAL JELLY (Urojet) MM ONE (17:25)
[2020-10-01] MEDS ORDERED: acetaminophen 325mg tablet PO PRN ×2 (17:55)
[2020-10-01] MEDS ORDERED: magnesium 2GM in 50ml NS 50 ML IV PRN (17:55)
[2020-10-01] MEDS ORDERED: normal saline 1000ml 1,000 ML IV SCH (17:55)
[2020-10-01] MEDS ORDERED: potassium Cl 20 mEq SR tablet PO PRN ×2 (17:55)
[2020-10-01] MEDS ORDERED: HYDROcodone/acetaminophen 5mg/325mg tablet PO PRN (17:55)
[2020-10-01] MEDS ORDERED: HYDROcodone/acetaminophen 10/325mg tab PO PRN (17:55)
[2020-10-01] MEDS ORDERED: ondansetron/PF 4mg/2ml inj IV PRN (17:55)
[2020-10-01] MEDS ORDERED: potassium Cl 40MEQ/1/2NS 520ml 520 ML IV PRN ×2 (17:55)
[2020-10-01] MEDS ORDERED: magnesium 4gm in 100ml NS 100 ML IV PRN (17:55)
[2020-10-01] MEDS ORDERED: morphine 2 MG/ML inj. syringe IV PRN ×2 (17:55)
[2020-10-01] MEDS ORDERED: magnesium Cl slow-release 64mg tablet PO PRN (17:55)
[2020-10-01 18:53] LABS: CREATININE 1.05 MG/DL (0.60-1.10); eGFR 73 ML/MIN
[2020-10-01] MEDS ORDERED: vancomycin inj. 750 MG in normal saline 250ml IV soln 250 ML IV STA (19:08)
--- NOTE | 2020-10-01 19:49 | NUR ---
spent 20 minutes with staff. Pt wants to leave. Pt wants his penile pain addressed. Pt informed if he leaves PICC line needs to be removed. Pt appears impatient. Pt understands risks leaving with endocarditis. Going to speak with night hospitalist Cal and informed Karin flannery RN.
[2020-10-01] MEDS ORDERED: carVEDilol 3.125mg tablet PO SCH (20:00)
[2020-10-01] MEDS ORDERED: docusate sod 100mg capsule PO SCH (20:00)
[2020-10-01] MEDS ORDERED: heparin, porcine 5000 units/ml vial SQ SCH (20:00)
[2020-10-01] MEDS ORDERED: K and/or MAG REPLACEMENT MC SCH (20:00)
--- NOTE | 2020-10-01 20:27 | NUR ---
CT AT BEDSIDE.
--- NOTE | 2020-10-01 20:28 | NUR ---
PT SON IN LAW LAWLER AT BEDSIDE. PT WANTED TO LEAVE BUT DR. TONG IS DOING ANOTHER TEST FOR HIS SCROTUM PAIN.
[2020-10-01] MEDS ORDERED: temazepam 15mg capsule PO PRN ×2 (21:00→21:40)
[2020-10-01] MEDS ORDERED: tamsulosin 0.4mg capsule PO SCH (21:00)
--- NOTE | 2020-10-01 21:03 | NUR ---
handoff on the floor. Zoran to pt room. Pt wants a shower.
--- NOTE | 2020-10-01 21:18 | NUR ---
RECEIVED PATIENT FROM ER IN STRETCHER ALERT ORIENTED X4,NO COMPLAIN OF PAIN,NO RESPIRATORY DISTRESS ROOM AIR SAT 97%,ASSESSMENT DONE,CONDOM PALACIOS APPLIED REQUESTING BY PATIENT,FAMILY BEDSIDE,CALL LIGHT AT REACH,WILL MONITORED.
--- NOTE | 2020-10-01 21:44 | NUR ---
PATIENT WITH PAIN 9/10 WHEN URINATING NORCO ORAL GIVEN FOR PAIN.
[2020-10-02] MEDS ORDERED: gentamicin in saline, iso-osm 80 MG/50 ML premix IV SCH
[2020-10-02] MEDS ORDERED: gentamicin inj 80 MG in normal saline 100ml IV soln 98 ML IV SCH ×2
--- NOTE | 2020-10-02 00:56 | NUR ---
Notified MD Mccall about patient leaving AMA.
--- NOTE | 2020-10-02 01:19 | NUR ---
PATIENT LEFT AMA , ALL RISKS AND CONSEQUENCES EXPLAIN INCLUDING . PATIENTS IV WAS DC AND PATIENTS BELONGING WAS RETURNED. MD MADE AWARE, JAMB CUTTER MADE AWARE. PATIENT WHEELCHAIRE DOWN AND CALLED FOR A RIDE WHILE ON THE WAY DOWN STAIRES
[2020-10-02] MEDS ORDERED: vancomycin/NS 1 GM ADD-VANTAGE 250 ML IV SCH (04:00)
[2020-10-02] MEDS ORDERED: rifampin inj. 600 MG in normal saline 100ml IV soln 100 ML IV SCH (08:00)
[2020-10-02] MEDS ORDERED: furosemide 40mg/4ml inj IV SCH (08:00)
[2020-10-02] MEDS ORDERED: lisinopril 10 MG tablet PO SCH (08:00)
[2020-10-02] MEDS ORDERED: nicotine 21mg patch - 24 hr TD SCH (08:00)
[2020-10-02] MEDS ORDERED: aspirin 81mg tablet.DR PO SCH (08:00)
[2020-10-02] MEDS ORDERED: spironolactone 25 MG tablet PO SCH (08:00)
[2020-10-02] MEDS ORDERED: isosorbide mononitrate 30mg tab.SR.24H PO SCH (08:00)
== END 2020-10-02 01:06 | disposition left against medical advice (07) | DRG 720 ==
LOC: ER 16:18 → ED HOLD 17:53 → PCU 3S 20:58
PROVIDERS: ADMIT Internal Medicine; ATTEND Internal Medicine
DX: A41.02 Sepsis due to Methicillin resistant Staphylococcus aureus (principal); I33.0 Acute and subacute infective endocarditis; I11.0 Hypertensive heart disease with heart failure; H44.19 Other endophthalmitis; F15.90 Other stimulant use, unspecified, uncomplicated; I25.10 Atherosclerotic heart disease of native coronary artery without angina pectoris; I25.5 Ischemic cardiomyopathy; M54.9 Dorsalgia, unspecified; Z53.29 Procedure and treatment not carried out because of patient's decision for other reasons; G89.29 Other chronic pain; I50.22 Chronic systolic (congestive) heart failure; J44.9 Chronic obstructive pulmonary disease, unspecified; Z72.0 Tobacco use; I25.2 Old myocardial infarction; Z86.73 Personal history of transient ischemic attack (TIA), and cerebral infarction without residual deficits; Z95.2 Presence of prosthetic heart valve; Z80.3 Family history of malignant neoplasm of breast; Z82.49 Family history of ischemic heart disease and other diseases of the circulatory system
CPT/HCPCS: 36415; 74176; 82565; 87081; 96365; 99285; G0378; J1580; J1644; J3370; J7030

== ENCOUNTER 2021-02-01 05:22 | Emergency (ER) | payer MEDICAID ==
[~2021-02-01] VITALS: Ht 193 cm; Wt 88.6 kg
--- NOTE | 2021-02-01 05:41 | NUR ---
Pt states he is a hard stick and states it's even difficult to get ultrasound IVs started on him. Pt requesting IV in his neck.
[2021-02-01 06:23] LABS: BASOPHILS # (AUTO) 0.2 X10'3 (0-0.2); BASOPHILS % (AUTO) 1.3 % (0-1); EOSINOPHILS # (AUTO) 0.3 X10'3 (0-0.9); EOSINOPHILS % (AUTO) 2.5 % (0-6); HEMATOCRIT 45.3 % (42.0-52.0); HEMOGLOBIN 15.1 g/dl (14.0-17.9); LYMPHOCYTES % (AUTO) 23.8 % (21-51); MEAN CORPUSCULAR HEMOGLOBIN 28.9 PG (27.0-31.0); MEAN CORPUSCULAR HGB CONC 33.4 g/dL (33.0-36.5); MEAN CORPUSCULAR VOLUME 86.5 FL (78-98); MEAN PLATELET VOLUME 8.1 FL (7.4-10.4); MONOCYTES # (AUTO) 1.5 X10'3 (0-0.9); MONOCYTES % (AUTO) 11.9 % (2-12); NEUTROPHILS # (AUTO) 7.5 X10'3 (1.8-7.7); NEUTROPHILS % (AUTO) 60.5 % (42-75); PLATELET COUNT 317 X10'3 (140-440); RED BLOOD COUNT 5.23 X10'6 (4.70-6.10); WHITE BLOOD COUNT 12.4 X10'3 (4.5-11.0)
[2021-02-01 06:35] LABS: ALANINE AMINOTRANSFERASE 62 U/L (12-78); ALBUMIN 3.3 G/DL (3.4-5.0); ALBUMIN/GLOBULIN RATIO 0.6 (1.1-1.5); ALKALINE PHOSPHATASE 122 IU/L (46-116); ANION GAP 8 (8-16); ASPARTATE AMINO TRANSFERASE 39 U/L (10-37); BILIRUBIN,TOTAL 0.3 MG/DL (0.1-1.0); BLOOD UREA NITROGEN 19 MG/DL (7-18); BUN/CREATININE RATIO 16.7 (5.4-32.0); CALCIUM 9.3 MG/DL (8.5-10.1); CHLORIDE 103 MMOL/L (99-107); CREATININE 1.14 MG/DL (0.60-1.10); GLUCOSE 108 MG/DL (70-104); POTASSIUM 4.1 MMOL/L (3.5-5.1); SODIUM 140 MMOL/L (135-145); TOTAL CARBON DIOXIDE 29.4 MMOL/L (24-32); TOTAL PROTEIN 8.4 G/DL (6.4-8.2); eGFR 66 ML/MIN
[2021-02-01 08:42] VITALS: BP 139/94
== END 2021-02-01 08:51 | disposition home or self-care (01) ==
LOC: ER 05:23
DX: R07.89 Other chest pain (principal); R42 Dizziness and giddiness; R06.02 Shortness of breath; I25.10 Atherosclerotic heart disease of native coronary artery without angina pectoris; I10 Essential (primary) hypertension; I25.2 Old myocardial infarction; G89.29 Other chronic pain; F15.90 Other stimulant use, unspecified, uncomplicated; J44.9 Chronic obstructive pulmonary disease, unspecified; Z86.718 Personal history of other venous thrombosis and embolism; Z86.14 Personal history of Methicillin resistant Staphylococcus aureus infection; Z72.0 Tobacco use; Z72.89 Other problems related to lifestyle; Z79.82 Long term (current) use of aspirin; Z79.899 Other long term (current) drug therapy
CPT/HCPCS: 36415; 71045; 80053; 83880; 84484; 85025; 93005; 99285

== ENCOUNTER 2021-04-12 09:17 | Emergency (ER) | payer MEDICAID ==
[~2021-04-12] VITALS: Ht 190.5 cm; Wt 84.1 kg
--- NOTE | 2021-04-12 09:32 | NUR ---
dr stern at bedside.
[2021-04-12] MEDS ORDERED: ALBU18HF2 INH (10:08)
[2021-04-12] MEDS ORDERED: levoFLOXACIN-Levaquin 750MG/D5 150 ML IV ONE (11:00)
[2021-04-12 11:50] LABS: BASOPHILS # (AUTO) 0.2 X10'3 (0-0.2); BASOPHILS % (AUTO) 1.2 % (0-1); EOSINOPHILS # (AUTO) 0.1 X10'3 (0-0.9); EOSINOPHILS % (AUTO) 0.5 % (0-6); HEMOGLOBIN 14.5 g/dl (14.0-17.9); LYMPHOCYTES # (AUTO) 2.1 X10'3 (1.1-4.8); LYMPHOCYTES % (AUTO) 12.8 % (21-51); MEAN CORPUSCULAR HEMOGLOBIN 27.9 PG (27.0-31.0); MEAN CORPUSCULAR HGB CONC 33.6 g/dL (33.0-36.5); MEAN PLATELET VOLUME 8.5 FL (7.4-10.4); MONOCYTES # (AUTO) 1.4 X10'3 (0-0.9); MONOCYTES % (AUTO) 8.6 % (2-12); NEUTROPHILS # (AUTO) 12.9 X10'3 (1.8-7.7); NEUTROPHILS % (AUTO) 76.9 % (42-75); PLATELET COUNT 259 X10'3 (140-440); RED BLOOD COUNT 5.18 X10'6 (4.70-6.10); RED CELL DISTRIBUTION WIDTH 15.5 % (11.5-14.5); WHITE BLOOD COUNT 16.8 X10'3 (4.5-11.0)
[2021-04-12 12:02] LABS: ALANINE AMINOTRANSFERASE 50 U/L (12-78); ALBUMIN 3.1 G/DL (3.4-5.0); ALBUMIN/GLOBULIN RATIO 0.6 (1.1-1.5); ALKALINE PHOSPHATASE 91 IU/L (46-116); ANION GAP 9 (8-16); BILIRUBIN,TOTAL 0.9 MG/DL (0.1-1.0); BLOOD UREA NITROGEN 20 MG/DL (7-18); BUN/CREATININE RATIO 19.8 (5.4-32.0); CALCIUM 8.6 MG/DL (8.5-10.1); CHLORIDE 102 MMOL/L (99-107); CREATININE 1.01 MG/DL (0.60-1.10); GLUCOSE 116 MG/DL (70-104); SODIUM 135 MMOL/L (135-145); TOTAL PROTEIN 8.4 G/DL (6.4-8.2); eGFR 76 ML/MIN
[2021-04-12 12:12] LABS: ASPARTATE AMINO TRANSFERASE 53 U/L (10-37); POTASSIUM 4.3 MMOL/L (3.5-5.1)
[2021-04-12] MEDS ORDERED: levoFLOXACIN 250mg tablet PO ONE (12:30)
[2021-04-12] MEDS ORDERED: LEVO500T90 PO (13:28)
[2021-04-12 13:55] VITALS: BP 120/71
== END 2021-04-12 13:55 | disposition home or self-care (01) ==
LOC: ER 09:17
DX: J18.9 Pneumonia, unspecified organism (principal); Z20.822 Contact with and (suspected) exposure to COVID-19; R06.02 Shortness of breath; J44.9 Chronic obstructive pulmonary disease, unspecified; I25.10 Atherosclerotic heart disease of native coronary artery without angina pectoris; I10 Essential (primary) hypertension; I25.2 Old myocardial infarction; G89.29 Other chronic pain; F15.90 Other stimulant use, unspecified, uncomplicated; Z86.718 Personal history of other venous thrombosis and embolism; Z86.14 Personal history of Methicillin resistant Staphylococcus aureus infection; Z98.890 Other specified postprocedural states; Z72.89 Other problems related to lifestyle; Z79.82 Long term (current) use of aspirin; Z79.899 Other long term (current) drug therapy; Z79.2 Long term (current) use of antibiotics; X08.8XXA Exposure to other specified smoke, fire and flames, initial encounter
CPT/HCPCS: 36415; 71045; 80053; 83880; 84145; 84484; 85025; 87635; 93005; 99285; C9803

== ENCOUNTER 2021-05-02 22:42 | Emergency (ER) | payer MEDICAID ==
[~2021-05-02] VITALS: Ht 193 cm; Wt 85.0 kg
[~2021-05-02 22:42] MED LIST changes: +ALBU18HF2 INH
[2021-05-02 22:57] VITALS: BP 147/86
[2021-05-02 23:37] LABS: BASOPHILS # (AUTO) 0.2 X10'3 (0-0.2); BASOPHILS % (AUTO) 1.4 % (0-1); EOSINOPHILS # (AUTO) 0.3 X10'3 (0-0.9); EOSINOPHILS % (AUTO) 2.6 % (0-6); HEMATOCRIT 43.7 % (42.0-52.0); HEMOGLOBIN 14.4 g/dl (14.0-17.9); LYMPHOCYTES # (AUTO) 2.2 X10'3 (1.1-4.8); MEAN CORPUSCULAR HEMOGLOBIN 27.2 PG (27.0-31.0); MEAN CORPUSCULAR VOLUME 82.5 FL (78-98); MEAN PLATELET VOLUME 8.3 FL (7.4-10.4); MONOCYTES # (AUTO) 0.9 X10'3 (0-0.9); MONOCYTES % (AUTO) 7.8 % (2-12); NEUTROPHILS % (AUTO) 69.2 % (42-75); PLATELET COUNT 305 X10'3 (140-440); RED CELL DISTRIBUTION WIDTH 15.1 % (11.5-14.5); WHITE BLOOD COUNT 11.6 X10'3 (4.5-11.0)
[2021-05-02 23:59] LABS: ALANINE AMINOTRANSFERASE 51 U/L (12-78); ALBUMIN 3.3 G/DL (3.4-5.0); ALBUMIN/GLOBULIN RATIO 0.6 (1.1-1.5); ALKALINE PHOSPHATASE 117 IU/L (46-116); ANION GAP 12 (8-16); ASPARTATE AMINO TRANSFERASE 39 U/L (10-37); BILIRUBIN,TOTAL 0.7 MG/DL (0.1-1.0); BLOOD UREA NITROGEN 20 MG/DL (7-18); BUN/CREATININE RATIO 16.7 (5.4-32.0); CALCIUM 9.4 MG/DL (8.5-10.1); CHLORIDE 99 MMOL/L (99-107); GLUCOSE 122 MG/DL (70-104); POTASSIUM 4.1 MMOL/L (3.5-5.1); SODIUM 135 MMOL/L (135-145); TOTAL CARBON DIOXIDE 24.5 MMOL/L (24-32); TOTAL PROTEIN 8.8 G/DL (6.4-8.2); eGFR 62 ML/MIN
--- NOTE | 2021-05-03 07:11 | NUR ---
PT WAS IN PARKING LOT WAITING TO BE CALLED BACK TO ER ROOM. PT WAS CALLED AND INFORMED THAT HIS ROOM WAS READY. PT STATES THAT HE HAD LEFT FOR HOME APPROX 5 MIN AGO AND TO GIVE THE ROOM TO THE NEXT PT.
[2021-05-03] MEDS ORDERED: ALBU18HF2 INH (14:23)
[2021-05-04] MEDS ORDERED: PRED20TA PO (10:02)
[2021-05-04] MEDS ORDERED: BUDE10.22 INH (10:02)
== END 2021-05-03 07:12 | disposition left against medical advice (07) ==
LOC: ER 22:43
DX: R06.02 Shortness of breath (principal); Z53.21 Procedure and treatment not carried out due to patient leaving prior to being seen by health care provider
CPT/HCPCS: 36415; 71045; 80053; 83605; 85025; 87040; 93005

== ENCOUNTER 2021-05-03 11:57 | Inpatient (IN) | payer MEDICAID ==
[~2021-05-03] VITALS: Ht 190.5 cm; Wt 84.1 kg
[2021-05-03] MEDS ORDERED: furosemide 40mg/4ml inj IV ONE (12:10)
[2021-05-03 13:03] LABS: BASOPHILS # (AUTO) 0.1 X10'3 (0-0.2); BASOPHILS % (AUTO) 0.9 % (0-1); EOSINOPHILS # (AUTO) 0.2 X10'3 (0-0.9); EOSINOPHILS % (AUTO) 2.2 % (0-6); HEMOGLOBIN 13.7 g/dl (14.0-17.9); LYMPHOCYTES % (AUTO) 17.8 % (21-51); MEAN CORPUSCULAR HEMOGLOBIN 27.2 PG (27.0-31.0); MEAN CORPUSCULAR HGB CONC 33.3 g/dL (33.0-36.5); MEAN CORPUSCULAR VOLUME 81.8 FL (78-98); MEAN PLATELET VOLUME 8.3 FL (7.4-10.4); MONOCYTES # (AUTO) 0.9 X10'3 (0-0.9); MONOCYTES % (AUTO) 8.5 % (2-12); NEUTROPHILS # (AUTO) 7.8 X10'3 (1.8-7.7); NEUTROPHILS % (AUTO) 70.6 % (42-75); PLATELET COUNT 303 X10'3 (140-440); RED BLOOD COUNT 5.01 X10'6 (4.70-6.10); RED CELL DISTRIBUTION WIDTH 15.2 % (11.5-14.5); WHITE BLOOD COUNT 11.1 X10'3 (4.5-11.0)
[2021-05-03 13:13] LABS: ALANINE AMINOTRANSFERASE 59 U/L (12-78); ALBUMIN 3.1 G/DL (3.4-5.0); ALBUMIN/GLOBULIN RATIO 0.6 (1.1-1.5); ALKALINE PHOSPHATASE 99 IU/L (46-116); ANION GAP 7 (8-16); ASPARTATE AMINO TRANSFERASE 45 U/L (10-37); BILIRUBIN,TOTAL 0.8 MG/DL (0.1-1.0); BLOOD UREA NITROGEN 19 MG/DL (7-18); BUN/CREATININE RATIO 15.4 (5.4-32.0); CHLORIDE 104 MMOL/L (99-107); CREATININE 1.23 MG/DL (0.60-1.10); GLUCOSE 106 MG/DL (70-104); POTASSIUM 4.5 MMOL/L (3.5-5.1); SODIUM 139 MMOL/L (135-145); TOTAL CARBON DIOXIDE 27.9 MMOL/L (24-32); TOTAL PROTEIN 8.1 G/DL (6.4-8.2); eGFR 60 ML/MIN
[2021-05-03] MEDS ORDERED: ALBU18HF2 INH (14:23)
[2021-05-03 14:44] LABS: ETHANOL < 0.010 GM/DL (0.0-0.010)
[2021-05-03] MEDS ORDERED: acetaminophen 325mg tablet PO PRN ×2 (16:20)
[2021-05-03] MEDS ORDERED: potassium CL 10mEq/100ml bag 100 ML IV PRN (16:20)
[2021-05-03] MEDS ORDERED: mag hydrox/Alum hydrox/simeth 30ml oral suspension PO PRN (16:20)
[2021-05-03] MEDS ORDERED: magnesium 2GM in 50ml NS 50 ML IV PRN (16:20)
[2021-05-03] MEDS ORDERED: magnesium Cl slow-release 64mg tablet PO PRN (16:20)
[2021-05-03] MEDS ORDERED: ondansetron/PF 4mg/2ml inj IV PRN (16:20)
[2021-05-03] MEDS ORDERED: magnesium 4gm in 100ml NS 100 ML IV PRN (16:20)
[2021-05-03] MEDS ORDERED: magnesium hydroxide 30ml (MOM) UD suspension PO PRN (16:20)
[2021-05-03] MEDS ORDERED: potassium Cl 20 mEq SR tablet PO PRN ×2 (16:20)
[2021-05-03] MEDS ORDERED: diphenhydrAMINE 25mg capsule PO PRN (16:20)
[2021-05-03] MEDS ORDERED: bisacodyl 10mg suppository rectal RC PRN (16:20)
[2021-05-03] MEDS ORDERED: acetaminophen 650mg rectal suppository RC PRN (16:20)
[2021-05-03] MEDS ORDERED: methylPREDNISolone sod succ 125mg/2ml vial IV ONE (16:20)
[2021-05-03] MEDS ORDERED: albuterol 2.5 MG/3 ML nebule NEB PRN (16:25)
[2021-05-03] MEDS ORDERED: iohexol 350MG/ML 100ml bottle IV ONE (16:30)
[2021-05-03] MEDS: carVEDilol 3.125mg tablet PO SCH (19:16)
[2021-05-03] MEDS: heparin, porcine 5000 units/ml vial SQ SCH (19:17)
[2021-05-03] MEDS: methylPREDNISolone sod succ/PF 40mg inj. IV SCH (19:17)
[2021-05-03] MEDS: furosemide 10 MG/1 ML 10ml inj IV SCH (19:18)
[2021-05-03] MEDS: docusate sod 100mg capsule PO SCH (19:19)
[2021-05-03] MEDS: K and/or MAG REPLACEMENT MC SCH (20:00)
[2021-05-03] MEDS: ipratropium/albuterol 3ml nebule NEB SCH ×2 (20:14→23:00)
[2021-05-04 01:46] LABS: ALANINE AMINOTRANSFERASE 54 U/L (12-78); ALBUMIN 3.4 G/DL (3.4-5.0); ALBUMIN/GLOBULIN RATIO 0.6 (1.1-1.5); ALKALINE PHOSPHATASE 131 IU/L (46-116); ANION GAP 11 (8-16); ASPARTATE AMINO TRANSFERASE 36 U/L (10-37); BILIRUBIN,TOTAL 0.7 MG/DL (0.1-1.0); BLOOD UREA NITROGEN 22 MG/DL (7-18); BUN/CREATININE RATIO 14.2 (5.4-32.0); CALCIUM 9.2 MG/DL (8.5-10.1); CHLORIDE 98 MMOL/L (99-107); CREATININE 1.55 MG/DL (0.60-1.10); GLUCOSE 353 MG/DL (70-104); POTASSIUM 3.3 MMOL/L (3.5-5.1); SODIUM 137 MMOL/L (135-145); TOTAL CARBON DIOXIDE 28.3 MMOL/L (24-32); TOTAL PROTEIN 9.4 G/DL (6.4-8.2); eGFR 46 ML/MIN
[2021-05-04 01:49] LABS: BASOPHILS % (AUTO) 0.3 % (0-1); CHOL/HDL RATIO 3.3 (0.00-4.99); CHOLESTEROL 164 MG/DL (0-200); EOSINOPHILS % (AUTO) 0 % (0-6); HDL CHOLESTEROL 49 MG/DL (35-60); HEMATOCRIT 46.3 % (42.0-52.0); HEMOGLOBIN 15.4 g/dl (14.0-17.9); LDL CHOLESTEROL 104 MG/DL (50-100); LYMPHOCYTES # (AUTO) 0.5 X10'3 (1.1-4.8); LYMPHOCYTES % (AUTO) 5.2 % (21-51); MEAN CORPUSCULAR HEMOGLOBIN 27.4 PG (27.0-31.0); MEAN CORPUSCULAR HGB CONC 33.4 g/dL (33.0-36.5); MEAN CORPUSCULAR VOLUME 82.2 FL (78-98); MEAN PLATELET VOLUME 8.7 FL (7.4-10.4); MONOCYTES # (AUTO) 0.1 X10'3 (0-0.9); MONOCYTES % (AUTO) 0.9 % (2-12); NEUTROPHILS # (AUTO) 8.2 X10'3 (1.8-7.7); NEUTROPHILS % (AUTO) 93.6 % (42-75); PHOSPHORUS 2.3 MG/DL (2.3-4.5); PLATELET COUNT 321 X10'3 (140-440); RED BLOOD COUNT 5.63 X10'6 (4.70-6.10); RED CELL DISTRIBUTION WIDTH 15.3 % (11.5-14.5); TRIGLYCERIDES 37 MG/DL (20-135); WHITE BLOOD COUNT 8.8 X10'3 (4.5-11.0)
[2021-05-04] MEDS: ipratropium/albuterol 3ml nebule NEB SCH ×3 (02:55→11:00)
--- NOTE | 2021-05-04 06:45 | NUR ---
RT AT BEDSIDE,PATIENT RECEIVING BREATHING TREATMENT.
[2021-05-04] MEDS: carVEDilol 3.125mg tablet PO SCH (07:25)
[2021-05-04] MEDS: methylPREDNISolone sod succ/PF 40mg inj. IV SCH (07:32)
[2021-05-04] MEDS: heparin, porcine 5000 units/ml vial SQ SCH (07:33)
[2021-05-04] MEDS: furosemide 10 MG/1 ML 10ml inj IV SCH (07:34)
[2021-05-04] MEDS: docusate sod 100mg capsule PO SCH (07:44)
[2021-05-04] MEDS: K and/or MAG REPLACEMENT MC SCH (07:44)
--- NOTE | 2021-05-04 07:52 | NUR ---
PATIENT CHANEGD INTO A GOWN AND PALCED INTO A GROUND WOOD SUPERVISOR.DENIES DISCOMFORT AT THIS TIME.
[2021-05-04] MEDS ORDERED: aspirin 81mg, enteric-coated 1 TAB TABLET.DR PO SCH (08:00)
[2021-05-04] MEDS ORDERED: nicotine 21mg patch - 24 hr TD SCH (08:00)
[2021-05-04] MEDS ORDERED: spironolactone 25 MG tablet PO SCH (08:00)
[2021-05-04] MEDS ORDERED: lisinopril 10 MG tablet PO SCH (08:00)
[2021-05-04] MEDS ORDERED: isosorbide mononitrate 30mg tab.SR.24H PO SCH (08:00)
--- NOTE | 2021-05-04 08:23 | NUR ---
patient noted sudhakar 43-44bpm/min while asleep,patient asymptomatic,Dr. arturo grande.
--- NOTE | 2021-05-04 08:26 | NUR ---
attempted to give report but nurse Anthony is doing med pass,CLAIRE Alvarez aware.
--- NOTE | 2021-05-04 09:55 | NUR ---
Patient in room MED 316. I have received report from СВЕТЛАНА FALL, and had the opportunity to ask questions and assume patient care.
[2021-05-04] MEDS ORDERED: BUDE10.22 INH (10:02)
[2021-05-04] MEDS ORDERED: PRED20TA PO (10:02)
[2021-05-04 11:00] VITALS: BP 124/82
[2021-05-04 13:45] VITALS: BP 119/96
[2021-05-04 13:46] VITALS: BP_SYST 105; BP_SYST 107; BP_DIAS 72
--- NOTE | 2021-05-04 13:52 | NUR ---
BELONGINGS RETURNED TO PT. DISCHARGE AND FOLLOW UP CARE REVIEWED, APPROPRIATE PAPER WORK SIGNED. PIV REMOVED WITH TIP INTACT. PT EDUCATED ON SMOKING CESSATION AND LIFESTYLE CHANGES, PT VERBALIZED UNDERSTANDING. PT TRANSPORTED TO HOME IN PRIVATE VEHICLE. PT TRANSPORTED TO LOBBY BY HOSPITAL STAFF.
== END 2021-05-04 13:45 | disposition home or self-care (01) | DRG 194 ==
LOC: ER 11:57 → ED HOLD 16:24 → MED 3N 05-04 09:30
PROVIDERS: ADMIT Family Medicine; ATTEND Family Medicine
PROC: B32T1ZZ Computerized Tomography (CT Scan) of Left Pulmonary Artery using Low Osmolar Contrast (ICD-10-PCS; principal; 2021-05-03)
PROC: B3201ZZ Computerized Tomography (CT Scan) of Thoracic Aorta using Low Osmolar Contrast (ICD-10-PCS; 2021-05-03)
PROC: B32S1ZZ Computerized Tomography (CT Scan) of Right Pulmonary Artery using Low Osmolar Contrast (ICD-10-PCS; 2021-05-03)
DX: I11.0 Hypertensive heart disease with heart failure (principal); J44.1 Chronic obstructive pulmonary disease with (acute) exacerbation; Z95.2 Presence of prosthetic heart valve; I42.7 Cardiomyopathy due to drug and external agent; F15.20 Other stimulant dependence, uncomplicated; I50.23 Acute on chronic systolic (congestive) heart failure; F17.210 Nicotine dependence, cigarettes, uncomplicated; F12.90 Cannabis use, unspecified, uncomplicated; Z20.822 Contact with and (suspected) exposure to COVID-19; G89.29 Other chronic pain; M54.9 Dorsalgia, unspecified; I25.10 Atherosclerotic heart disease of native coronary artery without angina pectoris; I25.2 Old myocardial infarction; Z79.82 Long term (current) use of aspirin; Z80.3 Family history of malignant neoplasm of breast; Z86.79 Personal history of other diseases of the circulatory system; Z91.19 Patient's noncompliance with other medical treatment and regimen; Z86.718 Personal history of other venous thrombosis and embolism; Z71.6 Tobacco abuse counseling
CPT/HCPCS: 36415; 71045; 71275; 80053; 80061; 80320; 83036; 83735; 83880; 84100; 84484; 85025; 87635; 93005; 94640; 94760; 99285; C9803; G0378; J1644; J1940; J2920; J2930; Q9967

== ENCOUNTER 2021-07-02 03:24 | Inpatient (IN) | payer MEDICAID ==
[~2021-07-02] VITALS: Ht 193 cm; Wt 86.2 kg
[~2021-07-02 03:24] MED LIST changes: +BUDE10.22 INH
[2021-07-02 04:34] LABS: BASOPHILS # (AUTO) 0.1 X10'3 (0-0.2); EOSINOPHILS # (AUTO) 0.3 X10'3 (0-0.9); EOSINOPHILS % (AUTO) 2.9 % (0-6); HEMATOCRIT 47.3 % (42.0-52.0); HEMOGLOBIN 15.7 g/dl (14.0-17.9); LYMPHOCYTES # (AUTO) 2.3 X10'3 (1.1-4.8); LYMPHOCYTES % (AUTO) 21.5 % (21-51); MEAN CORPUSCULAR HEMOGLOBIN 27.5 PG (27.0-31.0); MEAN CORPUSCULAR HGB CONC 33.3 g/dL (33.0-36.5); MEAN CORPUSCULAR VOLUME 82.7 FL (78-98); MEAN PLATELET VOLUME 8.8 FL (7.4-10.4); MONOCYTES % (AUTO) 9.8 % (2-12); NEUTROPHILS % (AUTO) 64.8 % (42-75); PLATELET COUNT 294 X10'3 (140-440); RED BLOOD COUNT 5.73 X10'6 (4.70-6.10); RED CELL DISTRIBUTION WIDTH 17.3 % (11.5-14.5); WHITE BLOOD COUNT 10.7 X10'3 (4.5-11.0)
[2021-07-02 04:43] LABS: ALANINE AMINOTRANSFERASE 40 U/L (12-78); ALBUMIN 3.2 G/DL (3.4-5.0); ALBUMIN/GLOBULIN RATIO 0.7 (1.1-1.5); ALKALINE PHOSPHATASE 75 IU/L (46-116); ANION GAP 7 (8-16); ASPARTATE AMINO TRANSFERASE 31 U/L (10-37); BILIRUBIN,TOTAL 0.8 MG/DL (0.1-1.0); BLOOD UREA NITROGEN 23 MG/DL (7-18); BUN/CREATININE RATIO 17.7 (5.4-32.0); CALCIUM 9.2 MG/DL (8.5-10.1); CHLORIDE 104 MMOL/L (99-107); GLUCOSE 129 MG/DL (70-104); POTASSIUM 3.5 MMOL/L (3.5-5.1); SODIUM 139 MMOL/L (135-145); TOTAL CARBON DIOXIDE 27.9 MMOL/L (24-32); TOTAL PROTEIN 7.7 G/DL (6.4-8.2); eGFR 57 ML/MIN
[2021-07-02] MEDS ORDERED: furosemide 10 MG/1 ML 10ml inj IV ONE (05:10)
[2021-07-02] MEDS ORDERED: REMDESIVIR INJ 200 MG in normal saline 100ml IV soln 100 ML IV ONE (06:00)
[2021-07-02] MEDS ORDERED: amox tr/potassium clavulanate 875/125mg TAB PO ONE (06:00)
[2021-07-02] MEDS ORDERED: CefTRIAXone/D5W-Rocephin 1gm 50 ML IV ONE (06:30)
[2021-07-02] MEDS ORDERED: SPIR25TA PO (13:19)
[2021-07-02] MEDS ORDERED: FURO20TA4 PO (13:22)
[2021-07-02] MEDS ORDERED: BUDE10.22 INH (13:23)
[2021-07-02] MEDS ORDERED: acetaminophen 325mg tablet PO PRN (13:45)
[2021-07-02] MEDS ORDERED: mag hydrox/Alum hydrox/simeth 30ml oral suspension PO PRN (13:45)
[2021-07-02] MEDS ORDERED: magnesium 2GM in 50ml NS 50 ML IV PRN (13:45)
[2021-07-02] MEDS ORDERED: ondansetron/PF 4mg/2ml inj IV PRN (13:45)
[2021-07-02] MEDS ORDERED: magnesium hydroxide 30ml (MOM) UD suspension PO PRN (13:45)
[2021-07-02] MEDS ORDERED: potassium CL 10mEq/100ml bag 100 ML IV PRN (13:45)
[2021-07-02] MEDS ORDERED: magnesium Cl slow-release 64mg tablet PO PRN (13:45)
[2021-07-02] MEDS ORDERED: magnesium 4gm in 100ml NS 100 ML IV PRN (13:45)
[2021-07-02] MEDS ORDERED: potassium Cl 20 mEq SR tablet PO PRN ×2 (13:45)
[2021-07-02 14:22] LABS: URINE AMPHETAMINE SCREEN POSITIVE (Neg); URINE BARBITUATE SCREEN NEGATIVE (Neg); URINE BENZODIAZEPINES SCREEN NEGATIVE (Neg); URINE CANNABINOID SCREEN NEGATIVE (Neg); URINE COCAINE SCREEN NEGATIVE (Neg); URINE METHADONE SCREEN NEGATIVE (Neg); URINE OPIATE SCREEN NEGATIVE (Neg); URINE PHENCYCLIDINE SCREEN NEGATIVE (Neg)
[2021-07-02 16:24] LABS: MAGNESIUM 1.9 MG/DL (1.5-2.4); POTASSIUM 3.6 MMOL/L (3.5-5.1)
[2021-07-02] MEDS ORDERED: albuterol 2.5 MG/3 ML nebule NEB PRN (17:40)
--- NOTE | 2021-07-02 18:35 | NUR ---
Patient asking if girlfriend can come visit him, because he is COVID positive and the girlfriends vaccination status is unknown I advised him "no visitors". He is unhappy with this and says he will just leave then. I told him this was not in his best interest and if he left it would be treated as AMA. He then wanted to know if we would send him home with needed meds and treatments, I again advised no, if you leave you leave AMA and that mean without treatment. He was not happy.
[2021-07-02] MEDS: K and/or MAG REPLACEMENT MC SCH (20:00)
[2021-07-02] MEDS: docusate sod 100mg capsule PO SCH (20:00)
[2021-07-02] MEDS: methylPREDNISolone sod succ 125mg/2ml vial IV SCH (20:39)
[2021-07-02] MEDS: carVEDilol 3.125mg tablet PO SCH (20:39)
[2021-07-02] MEDS: furosemide 40mg/4ml inj IV SCH (20:40)
[2021-07-02] MEDS: budesonide 0.5mg/2ml UD nebule IH SCH (21:18)
[2021-07-02] MEDS: albuterol 2.5 MG/3 ML nebule NEB SCH (21:19)
[2021-07-03] MEDS: albuterol 2.5 MG/3 ML nebule NEB SCH ×3 (02:58→14:00)
[2021-07-03 06:00] VITALS: BP 120/90
[2021-07-03 06:41] LABS: BASOPHILS % (AUTO) 0.3 % (0-1); EOSINOPHILS % (AUTO) 0 % (0-6); HEMATOCRIT 53.9 % (42.0-52.0); LYMPHOCYTES # (AUTO) 0.5 X10'3 (1.1-4.8); MEAN CORPUSCULAR HEMOGLOBIN 27.6 PG (27.0-31.0); MEAN CORPUSCULAR HGB CONC 33.4 g/dL (33.0-36.5); MEAN CORPUSCULAR VOLUME 82.7 FL (78-98); MEAN PLATELET VOLUME 9.2 FL (7.4-10.4); MONOCYTES # (AUTO) 0.1 X10'3 (0-0.9); MONOCYTES % (AUTO) 1.2 % (2-12); NEUTROPHILS # (AUTO) 9.5 X10'3 (1.8-7.7); NEUTROPHILS % (AUTO) 93.5 % (42-75); PLATELET COUNT 312 X10'3 (140-440); RED BLOOD COUNT 6.52 X10'6 (4.70-6.10); RED CELL DISTRIBUTION WIDTH 17.6 % (11.5-14.5); WHITE BLOOD COUNT 10.1 X10'3 (4.5-11.0)
[2021-07-03 07:12] LABS: ALBUMIN 3.7 G/DL (3.4-5.0); ANION GAP 10 (8-16); BLOOD UREA NITROGEN 29 MG/DL (7-18); BUN/CREATININE RATIO 23.4 (5.4-32.0); CALCIUM 9.7 MG/DL (8.5-10.1); CHLORIDE 103 MMOL/L (99-107); CREATININE 1.24 MG/DL (0.60-1.10); GLUCOSE 209 MG/DL (70-104); SODIUM 138 MMOL/L (135-145); TOTAL CARBON DIOXIDE 24.9 MMOL/L (24-32); eGFR 60 ML/MIN
[2021-07-03 07:13] LABS: POTASSIUM 4.2 MMOL/L (3.5-5.1)
[2021-07-03] MEDS ORDERED: isosorbide mononitrate 30mg tab.SR.24H PO SCH (08:00)
[2021-07-03] MEDS: budesonide 0.5mg/2ml UD nebule IH SCH (08:00)
[2021-07-03] MEDS ORDERED: spironolactone 25 MG tablet PO SCH (08:00)
[2021-07-03] MEDS ORDERED: enoxaparin 40mg/0.4ml syringe SUBCUT SCH (08:00)
[2021-07-03] MEDS ORDERED: lisinopril 10 MG tablet PO SCH (08:00)
[2021-07-03] MEDS ORDERED: aspirin 81mg, enteric-coated 1 TAB TABLET.DR PO SCH (08:00)
[2021-07-03] MEDS ORDERED: CefTRIAXone/D5W-Rocephin 1gm 50 ML IV SCH (08:00)
[2021-07-03] MEDS: furosemide 40mg/4ml inj IV SCH (08:39)
[2021-07-03] MEDS: methylPREDNISolone sod succ 125mg/2ml vial IV SCH (08:39)
[2021-07-03] MEDS: docusate sod 100mg capsule PO SCH (08:39)
[2021-07-03] MEDS: carVEDilol 3.125mg tablet PO SCH (08:40)
[2021-07-03] MEDS: K and/or MAG REPLACEMENT MC SCH (08:42)
[2021-07-03 10:00] VITALS: BP 129/82
[2021-07-03] MEDS ORDERED: PRED20TA PO (14:42)
[2021-07-03] MEDS ORDERED: LEVO500T90 PO (17:18)
[2021-07-03] MEDS ORDERED: lactobacillus rhamnosus 10,000 MMU CELLS/CAPSULE PO SCH (20:00)
== END 2021-07-03 15:16 | disposition home or self-care (01) | DRG 137 ==
LOC: ER 03:25 → ED HOLD 13:46 → ORTHO 4S 07-03 04:55
PROVIDERS: ADMIT Family Medicine; ATTEND Family Medicine
DX: U07.1 COVID-19 (principal); J12.82 Pneumonia due to coronavirus disease 2019; I50.23 Acute on chronic systolic (congestive) heart failure; I11.0 Hypertensive heart disease with heart failure; I42.7 Cardiomyopathy due to drug and external agent; F15.90 Other stimulant use, unspecified, uncomplicated; J44.0 Chronic obstructive pulmonary disease with (acute) lower respiratory infection; F17.210 Nicotine dependence, cigarettes, uncomplicated; F12.90 Cannabis use, unspecified, uncomplicated; G89.29 Other chronic pain; M54.9 Dorsalgia, unspecified; I25.10 Atherosclerotic heart disease of native coronary artery without angina pectoris; J44.1 Chronic obstructive pulmonary disease with (acute) exacerbation; I25.2 Old myocardial infarction; Z86.79 Personal history of other diseases of the circulatory system; Z91.19 Patient's noncompliance with other medical treatment and regimen; Z95.2 Presence of prosthetic heart valve; Z86.718 Personal history of other venous thrombosis and embolism; Z82.49 Family history of ischemic heart disease and other diseases of the circulatory system; Z80.3 Family history of malignant neoplasm of breast
CPT/HCPCS: 36415; 71045; 80048; 80053; 80305; 83735; 83880; 84132; 84484; 85025; 85379; 87081; 87635; 93005; 94640; 94760; 96365; 96375; 99285; C9803; G0378; J0696; J1650; J1940; J2930

== ENCOUNTER 2021-11-23 04:55 | Emergency (ER) | payer MEDICAID ==
[~2021-11-23] VITALS: Ht 190.5 cm; Wt 86.4 kg
[~2021-11-23 04:55] MED LIST changes: -ALBU18HF2 INH; +FURO20TA4 PO; -FURO40TA4 PO; -NICO-687 TD; +SPIR25TA PO; -SPIR25TA5 PO
[2021-11-23] MEDS ORDERED: aspirin 81mg tab.chew PO ONE (05:10)
[2021-11-23 06:09] LABS: BASOPHILS # (AUTO) 0.1 X10'3 (0-0.2); BASOPHILS % (AUTO) 1.2 % (0-1); EOSINOPHILS # (AUTO) 0.1 X10'3 (0-0.9); EOSINOPHILS % (AUTO) 0.9 % (0-6); HEMATOCRIT 47.3 % (42.0-52.0); HEMOGLOBIN 15.6 g/dl (14.0-17.9); LYMPHOCYTES % (AUTO) 17.5 % (21-51); MEAN CORPUSCULAR HEMOGLOBIN 28.1 PG (27.0-31.0); MEAN CORPUSCULAR HGB CONC 32.9 g/dL (33.0-36.5); MEAN CORPUSCULAR VOLUME 85.2 FL (78-98); MEAN PLATELET VOLUME 8.7 FL (7.4-10.4); MONOCYTES # (AUTO) 1.1 X10'3 (0-0.9); MONOCYTES % (AUTO) 10.1 % (2-12); NEUTROPHILS # (AUTO) 7.9 X10'3 (1.8-7.7); NEUTROPHILS % (AUTO) 70.3 % (42-75); PLATELET COUNT 272 X10'3 (140-440); RED BLOOD COUNT 5.55 X10'6 (4.70-6.10); RED CELL DISTRIBUTION WIDTH 14.6 % (11.5-14.5); WHITE BLOOD COUNT 11.2 X10'3 (4.5-11.0)
[2021-11-23 06:20] LABS: ALANINE AMINOTRANSFERASE 61 U/L (12-78); ALBUMIN 3.6 G/DL (3.4-5.0); ALBUMIN/GLOBULIN RATIO 0.9 (1.1-1.5); ALKALINE PHOSPHATASE 76 IU/L (46-116); ANION GAP 9 (8-16); ASPARTATE AMINO TRANSFERASE 50 U/L (10-37); BILIRUBIN,TOTAL 1.2 MG/DL (0.1-1.0); BLOOD UREA NITROGEN 26 MG/DL (7-18); BUN/CREATININE RATIO 19.1 (5.4-32.0); CHLORIDE 105 MMOL/L (99-107); CREATININE 1.36 MG/DL (0.60-1.10); GLUCOSE 114 MG/DL (70-104); SODIUM 139 MMOL/L (135-145); TOTAL CARBON DIOXIDE 24.8 MMOL/L (24-32); TOTAL PROTEIN 7.7 G/DL (6.4-8.2); eGFR 53 ML/MIN
[2021-11-23 06:27] LABS: MAGNESIUM 2.1 MG/DL (1.5-2.4)
--- NOTE | 2021-11-23 09:33 | NUR ---
CALLED LAB TO INQUIER REPEAT TROP LEVELS. I WAS TOLD THAT SERIES WAS CANCELLED BY OVERLOCKER FOR UNKNOWN REASON. LAB TO DRAW TROP STAT. NOTIFIED.
[2021-11-23 10:42] VITALS: BP 144/99
--- NOTE | 2021-11-23 10:47 | NUR ---
ALL CHEST PAIN HAS RESOLVED PER PT.
--- NOTE | 2021-11-23 10:48 | NUR ---
STILL WAITING FOR TROP LEVEL
== END 2021-11-23 11:14 ==
LOC: ER 04:55
DX: R07.89 Other chest pain (principal); Z86.16 Personal history of COVID-19; I25.10 Atherosclerotic heart disease of native coronary artery without angina pectoris; I11.0 Hypertensive heart disease with heart failure; I50.9 Heart failure, unspecified; I25.2 Old myocardial infarction; J44.9 Chronic obstructive pulmonary disease, unspecified; G89.29 Other chronic pain; F12.90 Cannabis use, unspecified, uncomplicated; F15.90 Other stimulant use, unspecified, uncomplicated; Z86.14 Personal history of Methicillin resistant Staphylococcus aureus infection; Z86.79 Personal history of other diseases of the circulatory system; Z86.718 Personal history of other venous thrombosis and embolism; Z72.89 Other problems related to lifestyle; Z79.82 Long term (current) use of aspirin; Z79.899 Other long term (current) drug therapy
CPT/HCPCS: 36415; 71045; 80053; 83735; 83880; 84484; 85025; 93005; 99285

== ENCOUNTER 2021-12-03 10:40 | Emergency (ER) | payer MEDICAID, OTHER ==
[~2021-12-03] VITALS: Ht 193 cm; Wt 82.0 kg
[2021-12-03 10:57] VITALS: BP 98/50
--- NOTE | 2021-12-03 12:36 | NUR ---
Attempted to place pt in trendelenberg position for reduction of hernias however, pt unable to tolerate this position due to shortness of breath. ANTONY Cassidy aware.
== END 2021-12-03 13:53 | disposition home or self-care (01) ==
LOC: ER 10:41
DX: K40.21 Bilateral inguinal hernia, without obstruction or gangrene, recurrent (principal); I11.9 Hypertensive heart disease without heart failure; I10 Essential (primary) hypertension; G89.29 Other chronic pain; M54.9 Dorsalgia, unspecified; F15.10 Other stimulant abuse, uncomplicated; F12.10 Cannabis abuse, uncomplicated; Z79.899 Other long term (current) drug therapy
CPT/HCPCS: 99283

== ENCOUNTER 2021-12-15 01:28 | Inpatient (IN) | payer OTHER ==
[2021-12-15] VITALS (9 sets, daily range): BP systolic 89–120; BP diastolic 45–69
[~2021-12-15] VITALS: Ht 185.4 cm; Wt 81.8 kg
[2021-12-15] MEDS ORDERED: nitroGLYCERIN 0.4mg/hour patch TD ONE (01:55)
[2021-12-15] MEDS ORDERED: normal saline 1000ml 1,000 ML IV ONE (01:55)
[2021-12-15 02:22] LABS: BASOPHILS % (AUTO) 0.3 % (0-1); EOSINOPHILS % (AUTO) 0.1 % (0-6); HEMATOCRIT 51.2 % (42.0-52.0); HEMOGLOBIN 17.3 g/dl (14.0-17.9); LYMPHOCYTES # (AUTO) 0.8 X10'3 (1.1-4.8); LYMPHOCYTES % (AUTO) 4.9 % (21-51); MEAN CORPUSCULAR HEMOGLOBIN 27.8 PG (27.0-31.0); MEAN CORPUSCULAR HGB CONC 33.7 g/dL (33.0-36.5); MEAN CORPUSCULAR VOLUME 82.4 FL (78-98); MEAN PLATELET VOLUME 9.4 FL (7.4-10.4); MONOCYTES # (AUTO) 1.3 X10'3 (0-0.9); NEUTROPHILS # (AUTO) 14.1 X10'3 (1.8-7.7); NEUTROPHILS % (AUTO) 86.7 % (42-75); PLATELET COUNT 171 X10'3 (140-440); RED BLOOD COUNT 6.21 X10'6 (4.70-6.10); RED CELL DISTRIBUTION WIDTH 15.1 % (11.5-14.5); WHITE BLOOD COUNT 16.3 X10'3 (4.5-11.0)
[2021-12-15 02:30] LABS: ALANINE AMINOTRANSFERASE 72 U/L (12-78); ALBUMIN 3.7 G/DL (3.4-5.0); ALBUMIN/GLOBULIN RATIO 0.8 (1.1-1.5); ALKALINE PHOSPHATASE 73 IU/L (46-116); ANION GAP 5 (8-16); ASPARTATE AMINO TRANSFERASE 37 U/L (10-37); BILIRUBIN,TOTAL 0.8 MG/DL (0.1-1.0); BLOOD UREA NITROGEN 26 MG/DL (7-18); BUN/CREATININE RATIO 20.5 (5.4-32.0); CHLORIDE 98 MMOL/L (99-107); CREATININE 1.27 MG/DL (0.60-1.10); GLUCOSE 98 MG/DL (70-104); POTASSIUM 4.2 MMOL/L (3.5-5.1); SODIUM 132 MMOL/L (135-145); TOTAL CARBON DIOXIDE 29.4 MMOL/L (24-32); TOTAL PROTEIN 8.2 G/DL (6.4-8.2); eGFR 58 ML/MIN
[2021-12-15 02:32] LABS: APTT 27 SECONDS (22-32); D-DIMER 1.43 MG/L FEU (0-0.50)
[2021-12-15 02:38] LABS: MAGNESIUM 1.8 MG/DL (1.5-2.4)
[2021-12-15] MEDS ORDERED: enoxaparin 100mg/ml syringe SUBCUT ONE (04:35)
[2021-12-15] MEDS ORDERED: HYDROmorphone inj. 0.5 MG/0.5 ML DISP.SYRIN IV PRN (05:00)
[2021-12-15] MEDS ORDERED: ondansetron/PF 4mg/2ml inj IV PRN (05:00)
[2021-12-15] MEDS ORDERED: HYDROcodone/acetaminophen 10/325mg tab PO PRN (05:00)
[2021-12-15] MEDS ORDERED: acetaminophen 650mg rectal suppository RC PRN (05:00)
[2021-12-15] MEDS ORDERED: HYDROcodone/acetaminophen 5mg/325mg tablet PO PRN (05:00)
[2021-12-15] MEDS ORDERED: normal saline 1000ml 1,000 ML IV SCH (05:00)
[2021-12-15] MEDS ORDERED: ipratropium/albuterol 3ml nebule NEB PRN (05:00)
[2021-12-15] MEDS ORDERED: morphine 2 MG/ML inj. syringe IV PRN ×2 (05:00)
[2021-12-15] MEDS ORDERED: magnesium hydroxide 30ml (MOM) UD suspension PO PRN (05:00)
[2021-12-15] MEDS ORDERED: acetaminophen 325mg tablet PO PRN ×2 (05:00)
[2021-12-15] MEDS ORDERED: mag hydrox/Alum hydrox/simeth 30ml oral suspension PO PRN (05:00)
[2021-12-15] MEDS ORDERED: bisacodyl 10mg suppository rectal RC PRN (05:00)
[2021-12-15] MEDS ORDERED: ondansetron 4mg rapidly disintigrating tab PO PRN (05:00)
[2021-12-15] MEDS ORDERED: diphenhydrAMINE 25mg capsule PO PRN (05:00)
[2021-12-15] MEDS ORDERED: diphenhydrAMINE 50 mg/ml inj IV PRN (05:00)
[2021-12-15] MEDS ORDERED: aminophylline 250mg/10ml inj. IV PRN ×2 (05:05→10:50)
[2021-12-15] MEDS ORDERED: metoprolol tartrate 1mg/ml inj IV PRN ×2 (05:05→10:50)
[2021-12-15] MEDS ORDERED: regadenoson 0.4mg/5ml syringe IV PRN ×2 (05:05→10:50)
[2021-12-15] MEDS ORDERED: nitroGLYCERIN 0.4mg SUBLingual tab SL PRN ×2 (05:05→10:50)
[2021-12-15] MEDS ORDERED: pantoprazole 40mg Tablet.DR PO SCH (07:30)
--- NOTE | 2021-12-15 07:30 | NUR ---
pt complaining of cp described as "started on the right, but now is on the left" pt pointed to the left upper abd when asked where the pain was. given 2mg morphine at this time per order
[2021-12-15 07:51] LABS: CREATINE KINASE 36 U/L (39-308); LIPASE 102 U/L (73-393); PHOSPHORUS 2.7 MG/DL (2.3-4.5)
[2021-12-15] MEDS ORDERED: docusate sod 100mg capsule PO SCH (08:00)
[2021-12-15] MEDS ORDERED: azithromycin 250mg tablet PO SCH (08:00)
[2021-12-15] MEDS ORDERED: CefTRIAXone/D5W-Rocephin 1gm 50 ML IV SCH (08:00)
[2021-12-15 08:01] LABS: HEMOGLOBIN A1C 6.4 % (4.5-6.2)
[2021-12-15 08:20] LABS: CLARITY,URINE CLEAR (Clear); COLOR,URINE YELLOW (Yellow); GLUCOSE, URINE NEGATIVE (Neg); KETONES,URINE NEGATIVE (Neg); LEUKOCYTE ESTERASE ,URINE NEGATIVE (Neg); NITRITES, URINE NEGATIVE (Neg); OCCULT BLOOD,URINE NEGATIVE (Neg); PROTEIN,URINE NEGATIVE (Neg); UA COLLECTION TYPE VOIDED; UROBILINOGEN,URINE 0.2 E.U/dL (0.2-1.0)
--- NOTE | 2021-12-15 08:45 | NUR ---
PT IS SCHEDULED FOR STRESS TEST, IT HAS BEEN POSTPONED DUE TO PT HAVING CHEST PAIN. PT HAS BEEN MEDICATED AND IS NOW RESTING QUIETLY ON GURNEY, RESP EVEN AND UNLABORED, CHEST PAIN IS 3/10, PT SAID HE FELT COMFORTABLE HAVING STRESS TEST NOW, DR MADRIGAL WAS PAGED FOR OK TO PROCEED WITH STRESS TEST, WAITING TO HEAR BACK FOR HIM, NUC MED TECH BRENNEN IS AWARE WELL
--- NOTE | 2021-12-15 08:50 | NUR ---
STRESS TEST HAS BEEN CANCELLED FOR NOW
[2021-12-15] MEDS ORDERED: PERFLUTREN PROTEIN-A MICROSPHR (Optison) 0.22 MG/ML 3ML VIAL IV ONE (08:55)
--- NOTE | 2021-12-15 11:30 | NUR ---
pt off unit for lexiscan
[2021-12-15] MEDS ORDERED: aminophylline 500mg/20ml vial ONE (12:00)
[2021-12-15 13:51] LABS: EOSINOPHILS % (AUTO) 0.2 % (0-6); HEMOGLOBIN 16.2 g/dl (14.0-17.9); LYMPHOCYTES # (AUTO) 1.3 X10'3 (1.1-4.8); MEAN CORPUSCULAR HGB CONC 33.4 g/dL (33.0-36.5); MEAN PLATELET VOLUME 9.1 FL (7.4-10.4); WHITE BLOOD COUNT 12.2 X10'3 (4.5-11.0)
[2021-12-15 13:53] LABS: BASOPHILS % (AUTO) 0.3 % (0-1); HEMATOCRIT 48.3 % (42.0-52.0); MEAN CORPUSCULAR HEMOGLOBIN 27.9 PG (27.0-31.0); MEAN CORPUSCULAR VOLUME 83.5 FL (78-98); MONOCYTES # (AUTO) 1.3 X10'3 (0-0.9); MONOCYTES % (AUTO) 10.5 % (2-12); NEUTROPHILS # (AUTO) 9.5 X10'3 (1.8-7.7); PLATELET COUNT 138 X10'3 (140-440); RED BLOOD COUNT 5.79 X10'6 (4.70-6.10)
[2021-12-15 14:04] LABS: ALANINE AMINOTRANSFERASE 60 U/L (12-78); ALBUMIN 3.2 G/DL (3.4-5.0); ALBUMIN/GLOBULIN RATIO 0.8 (1.1-1.5); ALKALINE PHOSPHATASE 56 IU/L (46-116); ANION GAP 7 (8-16); ASPARTATE AMINO TRANSFERASE 31 U/L (10-37); BILIRUBIN,TOTAL 1.1 MG/DL (0.1-1.0); BLOOD UREA NITROGEN 20 MG/DL (7-18); BUN/CREATININE RATIO 16.3 (5.4-32.0); CALCIUM 8.7 MG/DL (8.5-10.1); CHLORIDE 101 MMOL/L (99-107); CREATININE 1.23 MG/DL (0.60-1.10); GLUCOSE 159 MG/DL (70-104); POTASSIUM 3.7 MMOL/L (3.5-5.1); SODIUM 134 MMOL/L (135-145); TOTAL CARBON DIOXIDE 26.4 MMOL/L (24-32); TOTAL PROTEIN 7.3 G/DL (6.4-8.2); eGFR 60 ML/MIN
--- NOTE | 2021-12-15 14:19 | NUR ---
ULTRASOUND AT BEDSIDE
[2021-12-15] MEDS ORDERED: temazepam 15mg capsule PO PRN (21:00)
== END 2021-12-15 18:02 | DRG 313 ==
LOC: ER 01:29 → EEVIPCON 01:29 → ED HOLD 05:02
PROVIDERS: ADMIT Family Medicine; ATTEND Family Medicine
PROC: 4A02XM4 Measurement of Cardiac Total Activity, External Approach (ICD-10-PCS; principal; 2021-12-15)
PROC: 3E033HZ Introduction of Radioactive Substance into Peripheral Vein, Percutaneous Approach (ICD-10-PCS; 2021-12-15)
DX: R07.89 Other chest pain (principal); E87.1 Hypo-osmolality and hyponatremia; I13.0 Hypertensive heart and chronic kidney disease with heart failure and stage 1 through stage 4 chronic kidney disease, or unspecified chronic kidney disease; I50.22 Chronic systolic (congestive) heart failure; N17.9 Acute kidney failure, unspecified; I42.8 Other cardiomyopathies; I25.10 Atherosclerotic heart disease of native coronary artery without angina pectoris; D72.823 Leukemoid reaction; F17.210 Nicotine dependence, cigarettes, uncomplicated; G89.4 Chronic pain syndrome; J44.9 Chronic obstructive pulmonary disease, unspecified; F15.10 Other stimulant abuse, uncomplicated; M54.9 Dorsalgia, unspecified; N18.30 Chronic kidney disease, stage 3 unspecified; K76.0 Fatty (change of) liver, not elsewhere classified; Z79.51 Long term (current) use of inhaled steroids; Z79.82 Long term (current) use of aspirin; I25.2 Old myocardial infarction; Z86.711 Personal history of pulmonary embolism; Z86.718 Personal history of other venous thrombosis and embolism; Z86.79 Personal history of other diseases of the circulatory system; Z95.3 Presence of xenogenic heart valve; Z82.49 Family history of ischemic heart disease and other diseases of the circulatory system; Z80.3 Family history of malignant neoplasm of breast; Z79.899 Other long term (current) drug therapy; Z71.6 Tobacco abuse counseling
CPT/HCPCS: 36415; 71045; 78452; 80053; 81003; 82140; 82550; 83036; 83605; 83690; 83735; 83880; 84100; 84443; 84484; 85025; 85379; 85610; 85730; 87040; 93017; 93306; 94760; 99285; A9500; G0378; J0280; J0696; J1650; J2270; J2785; J7030

== ENCOUNTER 2021-12-30 03:40 | Emergency (ER) | payer OTHER ==
[~2021-12-30] VITALS: Ht 193 cm; Wt 81.8 kg
[2021-12-30 04:28] LABS: BASOPHILS # (AUTO) 0.1 X10'3 (0-0.2)
[2021-12-30 04:30] LABS: BASOPHILS % (AUTO) 0.9 % (0-1); EOSINOPHILS # (AUTO) 0.3 X10'3 (0-0.9); EOSINOPHILS % (AUTO) 2.4 % (0-6); HEMATOCRIT 51.7 % (42.0-52.0); HEMOGLOBIN 17.5 g/dl (14.0-17.9); LYMPHOCYTES % (AUTO) 27.8 % (21-51); MEAN CORPUSCULAR HEMOGLOBIN 28.3 PG (27.0-31.0); MEAN CORPUSCULAR HGB CONC 33.8 g/dL (33.0-36.5); MEAN CORPUSCULAR VOLUME 83.6 FL (78-98); MEAN PLATELET VOLUME 8.7 FL (7.4-10.4); MONOCYTES # (AUTO) 1.2 X10'3 (0-0.9); MONOCYTES % (AUTO) 10.8 % (2-12); NEUTROPHILS # (AUTO) 6.2 X10'3 (1.8-7.7); NEUTROPHILS % (AUTO) 58.1 % (42-75); PLATELET COUNT 201 X10'3 (140-440); RED BLOOD COUNT 6.19 X10'6 (4.70-6.10); WHITE BLOOD COUNT 10.8 X10'3 (4.5-11.0)
[2021-12-30 04:42] LABS: ALANINE AMINOTRANSFERASE 70 U/L (12-78); ALBUMIN 3.9 G/DL (3.4-5.0); ALBUMIN/GLOBULIN RATIO 0.8 (1.1-1.5); ALKALINE PHOSPHATASE 70 IU/L (46-116); ANION GAP 4 (8-16); BILIRUBIN,TOTAL 0.8 MG/DL (0.1-1.0); BLOOD UREA NITROGEN 23 MG/DL (7-18); BUN/CREATININE RATIO 21.9 (5.4-32.0); CALCIUM 9.4 MG/DL (8.5-10.1); CHLORIDE 104 MMOL/L (99-107); CREATININE 1.05 MG/DL (0.60-1.10); GLUCOSE 82 MG/DL (70-104); SODIUM 139 MMOL/L (135-145); TOTAL CARBON DIOXIDE 30.7 MMOL/L (24-32); TOTAL PROTEIN 8.7 G/DL (6.4-8.2); eGFR 72 ML/MIN
[2021-12-30 04:50] LABS: ASPARTATE AMINO TRANSFERASE 45 U/L (10-37); POTASSIUM 5.3 MMOL/L (3.5-5.1)
[2021-12-30 05:00] VITALS: BP 159/93
== END 2021-12-30 06:30 ==
LOC: ER 03:40
DX: R07.89 Other chest pain (principal); R06.02 Shortness of breath; F12.90 Cannabis use, unspecified, uncomplicated; F15.90 Other stimulant use, unspecified, uncomplicated; I25.10 Atherosclerotic heart disease of native coronary artery without angina pectoris; I11.0 Hypertensive heart disease with heart failure; I50.9 Heart failure, unspecified; I25.2 Old myocardial infarction; J44.9 Chronic obstructive pulmonary disease, unspecified; G89.29 Other chronic pain; Z86.14 Personal history of Methicillin resistant Staphylococcus aureus infection; Z86.711 Personal history of pulmonary embolism; Z95.5 Presence of coronary angioplasty implant and graft; Z79.82 Long term (current) use of aspirin; Z79.899 Other long term (current) drug therapy
CPT/HCPCS: 36415; 71045; 80053; 83880; 84484; 85025; 93005; 99285

== ENCOUNTER 2023-10-14 20:26 | Emergency (ER) | payer MEDICAID, OTHER ==
[~2023-10-14] VITALS: Ht 190.5 cm; Wt 86.4 kg
[2023-10-15] MEDS: ondansetron/PF 4mg/2ml inj IV ONE (00:35)
[2023-10-15] MEDS: pantoprazole 40 MG vial IV ONE (00:35)
[2023-10-15] MEDS: proCHLORperazine 10 MG/2 ml inj IV ONE (00:35)
[2023-10-15] MEDS: normal saline 1000ML IV soln IVB ONE (00:35)
[2023-10-15 01:23] LABS: BASOPHILS # (AUTO) 0.2 X10'3 (0-0.2); BASOPHILS % (AUTO) 1.1 % (0-1); EOSINOPHILS % (AUTO) 0.1 % (0-6); HEMATOCRIT 45.9 % (42.0-52.0); HEMOGLOBIN 15.8 g/dl (14.0-17.9); LYMPHOCYTES # (AUTO) 1.5 X10'3 (1.1-4.8); LYMPHOCYTES % (AUTO) 7.2 % (21-51); MEAN CORPUSCULAR HEMOGLOBIN 29.8 PG (27.0-31.0); MEAN CORPUSCULAR HGB CONC 34.4 g/dL (33.0-36.5); MEAN CORPUSCULAR VOLUME 86.7 FL (78-98); MEAN PLATELET VOLUME 8.7 FL (7.4-10.4); MONOCYTES # (AUTO) 1.4 X10'3 (0-0.9); MONOCYTES % (AUTO) 6.7 % (2-12); NEUTROPHILS # (AUTO) 17.3 X10'3 (1.8-7.7); NEUTROPHILS % (AUTO) 84.9 % (42-75); PLATELET COUNT 232 X10'3 (140-440); RED BLOOD COUNT 5.29 X10'6 (4.70-6.10); RED CELL DISTRIBUTION WIDTH 13.2 % (11.5-14.5); WHITE BLOOD COUNT 20.4 X10'3 (4.5-11.0)
[2023-10-15 01:27] LABS: BILIRUBIN,URINE NEGATIVE (Neg); CLARITY,URINE SLIGHTLY CLOUDY (Clear); COLOR,URINE YELLOW (Yellow); GLUCOSE, URINE NEGATIVE (Neg); KETONES,URINE NEGATIVE (Neg); LEUKOCYTE ESTERASE ,URINE NEGATIVE (Neg); NITRITES, URINE NEGATIVE (Neg); OCCULT BLOOD,URINE SMALL (Neg); PROTEIN,URINE 100 mg/dl (Neg); UROBILINOGEN,URINE 0.2 E.U/dL (0.2-1.0)
[2023-10-15 01:35] LABS: UA COLLECTION TYPE CLN CATCH MIDSTREAM
[2023-10-15 01:37] LABS: SQUAMOUS EPITHELIAL CELL,UR FEW /LPF (FEW)
[2023-10-15 01:38] LABS: ALANINE AMINOTRANSFERASE 31 U/L (12-78); ALBUMIN 3.8 G/DL (3.4-5.0); ALBUMIN/GLOBULIN RATIO 0.9 (1.1-1.5); ALKALINE PHOSPHATASE 102 IU/L (46-116); ANION GAP 8 (8-16); ASPARTATE AMINO TRANSFERASE 24 U/L (10-37); BILIRUBIN,TOTAL 1.3 MG/DL (0.1-1.0); BLOOD UREA NITROGEN 19 MG/DL (7-18); BUN/CREATININE RATIO 22.9 (10.0-20.0); CHLORIDE 103 MMOL/L (99-107); CREATININE 0.83 MG/DL (0.60-1.10); GLUCOSE 124 MG/DL (70-104); POTASSIUM 3.8 MMOL/L (3.5-5.1); SODIUM 138 MMOL/L (135-145); TOTAL PROTEIN 7.9 G/DL (6.4-8.2); eCRCL 110 ML/MIN; eGFR > 90 ML/MIN
[2023-10-15 01:38] LABS: BACTERIA,URINE FEW /HPF (Neg); TRANSITIONAL EPI CELLS,URINE FEW /HPF; WBC,URINE 0-4 /HPF (0-4)
[2023-10-15 01:39] LABS: HYALINE CASTS 0-3 /LPF (NEGATIVE); MUCUS STRANDS FEW /LPF (Neg)
[2023-10-15 01:40] LABS: LIPASE 28 U/L (16-77)
[2023-10-15 03:34] LABS: URINE AMPHETAMINE SCREEN POSITIVE (Neg); URINE BARBITUATE SCREEN NEGATIVE (Neg); URINE BENZODIAZEPINES SCREEN NEGATIVE (Neg); URINE CANNABINOID SCREEN NEGATIVE (Neg); URINE COCAINE SCREEN NEGATIVE (Neg); URINE METHADONE SCREEN NEGATIVE (Neg); URINE OPIATE SCREEN NEGATIVE (Neg); URINE PHENCYCLIDINE SCREEN NEGATIVE (Neg)
[2023-10-15] MEDS ORDERED: ONDA8TAB13 PO (03:57)
[2023-10-15 04:18] VITALS: BP 140/96; PULSE 97; RESP 18; TEMP 98.7; O2SAT 96
== END 2023-10-15 04:22 | disposition home or self-care (01) ==
LOC: ER 20:27
DX: R11.10 Vomiting, unspecified (principal); K22.6 Gastro-esophageal laceration-hemorrhage syndrome; I11.0 Hypertensive heart disease with heart failure; I50.9 Heart failure, unspecified; J44.9 Chronic obstructive pulmonary disease, unspecified; F12.90 Cannabis use, unspecified, uncomplicated; F15.10 Other stimulant abuse, uncomplicated
CPT/HCPCS: 36415; 74176; 80053; 80305; 81001; 83690; 84145; 84484; 85025; 86885; 86900; 86901; 96361; 96374; 96375; 99285; C9113; J0780; J2405; J7030

== ENCOUNTER 2024-05-30 01:19 | Inpatient (IN) | payer MEDICAID ==
[~2024-05-30] VITALS: Ht 190.5 cm; Wt 79.0 kg
[~2024-05-30 01:19] MED LIST changes: +ONDA-245 PO
[2024-05-30 02:21] LABS: BASOPHILS # (AUTO) 0.1 X10'3 (0-0.2); BASOPHILS % (AUTO) 1.3 % (0-1); EOSINOPHILS # (AUTO) 0.3 X10'3 (0-0.9); EOSINOPHILS % (AUTO) 2.8 % (0-6); HEMATOCRIT 43.1 % (42.0-52.0); HEMOGLOBIN 14.3 g/dl (14.0-17.9); LYMPHOCYTES % (AUTO) 19.4 % (21-51); MEAN CORPUSCULAR HEMOGLOBIN 28.8 PG (27.0-31.0); MEAN CORPUSCULAR HGB CONC 33.1 g/dL (33.0-36.5); MEAN CORPUSCULAR VOLUME 87.1 FL (78-98); MONOCYTES # (AUTO) 0.7 X10'3 (0-0.9); NEUTROPHILS # (AUTO) 7.2 X10'3 (1.8-7.7); NEUTROPHILS % (AUTO) 69.5 % (42-75); PLATELET COUNT 219 X10'3 (140-440); RED BLOOD COUNT 4.95 X10'6 (4.70-6.10); RED CELL DISTRIBUTION WIDTH 15.4 % (11.5-14.5); WHITE BLOOD COUNT 10.4 X10'3 (4.5-11.0)
[2024-05-30] MEDS: ipratropium/albuterol 3ml nebule NEB ONE (02:28)
[2024-05-30 02:29] VITALS: PULSE 81; RESP 24; O2SAT 94
[2024-05-30 02:35] LABS: ALANINE AMINOTRANSFERASE 48 U/L (12-78); ALBUMIN 3.5 G/DL (3.4-5.0); ALKALINE PHOSPHATASE 103 IU/L (46-116); ANION GAP 6 (8-16); ASPARTATE AMINO TRANSFERASE 35 U/L (10-37); BLOOD UREA NITROGEN 31 MG/DL (7-18); BUN/CREATININE RATIO 29.2 (10.0-20.0); CHLORIDE 109 MMOL/L (99-107); CREATININE 1.06 MG/DL (0.60-1.10); GLUCOSE 122 MG/DL (70-104); POTASSIUM 4.3 MMOL/L (3.5-5.1); SODIUM 141 MMOL/L (135-145); TOTAL CARBON DIOXIDE 26.2 MMOL/L (24-32); TOTAL PROTEIN 7.1 G/DL (6.4-8.2); eCRCL 84 ML/MIN; eGFR 71 ML/MIN
[2024-05-30 02:37] VITALS: PULSE 77; RESP 16; O2SAT 96
[2024-05-30 02:43] LABS: PRO BRAIN NATRIURETIC PEPTIDE 8364 PG/ML (0-125)
[2024-05-30] MEDS: methylPREDNISolone sod succ 125mg/2ml vial IV ONE (02:47)
[2024-05-30] MEDS: aspirin 81mg tab.chew PO ONE (03:59)
[2024-05-30] MEDS: furosemide 10 MG/1 ML 10ml inj IV ONE (04:01)
[2024-05-30] MEDS: CefTRIAXone/D5W-Rocephin 1gm 50 ML IV ONE (04:04)
[2024-05-30] MEDS ORDERED: mag hydrox/Alum hydrox/simeth 30ml oral suspension PO PRN (05:15)
[2024-05-30] MEDS ORDERED: potassium Cl 20 mEq SR tablet PO PRN ×2 (05:15)
[2024-05-30] MEDS ORDERED: potassium Cl 40MEQ/1/2NS 520ml 520 ML IV PRN (05:15)
[2024-05-30] MEDS ORDERED: albuterol 2.5 MG/3 ML nebule NEB PRN (05:15)
[2024-05-30] MEDS ORDERED: magnesium sulf-water 4G/100mL 100 ML IV PRN (05:15)
[2024-05-30] MEDS ORDERED: magnesium sulf-water 2g/50mL 50 ML IV PRN (05:15)
[2024-05-30] MEDS ORDERED: magnesium Cl slow-release 64mg tablet PO PRN (05:15)
[2024-05-30] MEDS ORDERED: magnesium hydroxide 30ml (MOM) UD suspension PO PRN (05:15)
[2024-05-30] MEDS ORDERED: ondansetron/PF 4mg/2ml inj IV PRN (05:15)
[2024-05-30] MEDS: azithromycin/NS 500mg/250ml 250 ML IV ONE (05:17)
[2024-05-30] MEDS ORDERED: LISI20TA28 PO (06:35)
[2024-05-30] MEDS ORDERED: IPRA3AMP31 INH (06:35)
[2024-05-30] MEDS ORDERED: BACL10TA2 PO (06:35)
[2024-05-30] MEDS ORDERED: NAPR-996 PO (06:35)
[2024-05-30] MEDS ORDERED: TAMSULOSIN (06:35)
[2024-05-30] MEDS: ipratropium/albuterol 3ml nebule NEB PRN (07:30)
[2024-05-30 07:32] VITALS: PULSE 91; RESP 18; O2SAT 96
[2024-05-30 07:38] LABS: URINE AMPHETAMINE SCREEN NEGATIVE (Neg); URINE BARBITUATE SCREEN NEGATIVE (Neg); URINE BENZODIAZEPINES SCREEN NEGATIVE (Neg); URINE CANNABINOID SCREEN NEGATIVE (Neg); URINE COCAINE SCREEN NEGATIVE (Neg); URINE METHADONE SCREEN NEGATIVE (Neg); URINE OPIATE SCREEN NEGATIVE (Neg); URINE PHENCYCLIDINE SCREEN NEGATIVE (Neg)
[2024-05-30 07:41] VITALS: PULSE 114; RESP 22
[2024-05-30 07:45] LABS: MAGNESIUM 2.2 MG/DL (1.5-2.4); POTASSIUM 3.8 MMOL/L (3.5-5.1)
[2024-05-30] MEDS: methylPREDNISolone sod succ/PF 40mg inj. IV SCH (07:52)
[2024-05-30] MEDS: docusate sod 100mg capsule PO SCH (07:52)
[2024-05-30] MEDS: EMPAGLIFLOZIN 10 MG TABLET PO SCH (07:52)
[2024-05-30] MEDS: carVEDilol 3.125mg tablet PO SCH (07:52)
[2024-05-30] MEDS: atorvastatin 20mg tablet PO SCH (07:53)
[2024-05-30] MEDS: nicotine 21mg patch - 24 hr TD SCH (07:53)
[2024-05-30] MEDS: furosemide 40mg/4ml inj IV SCH (07:53)
[2024-05-30] MEDS: lisinopril 10 MG tablet PO SCH (07:53)
[2024-05-30 07:58] LABS: HEMOGLOBIN A1C 5.8 % (4.5-6.2)
[2024-05-30] MEDS: aspirin 81mg, enteric-coated 1 TAB TABLET.DR PO SCH (08:00)
[2024-05-30] MEDS: K and/or MAG REPLACEMENT MC SCH (08:00)
[2024-05-30] MEDS: enoxaparin 40mg/0.4ml syringe SUBCUT SCH (08:01)
[2024-05-30] MEDS: spironolactone 25 MG tablet PO SCH (09:10)
[2024-05-30 23:40] VITALS: BP 130/83; PULSE 80; RESP 51; TEMP 97.6; O2SAT 95
[2024-05-31] MEDS ORDERED: FLO0.4C PO (00:17)
[2024-05-31] MEDS: tamsulosin 0.4mg capsule PO SCH (03:43)
[2024-05-31] MEDS: baclofen 10mg tablet PO PRN (03:43)
[2024-05-31 04:48] LABS: BASOPHILS % (AUTO) 0.1 % (0-1); EOSINOPHILS % (AUTO) 0 % (0-6); HEMATOCRIT 46.1 % (42.0-52.0); HEMOGLOBIN 15.2 g/dl (14.0-17.9); LYMPHOCYTES # (AUTO) 0.6 X10'3 (1.1-4.8); LYMPHOCYTES % (AUTO) 2.3 % (21-51); MEAN CORPUSCULAR HEMOGLOBIN 28.5 PG (27.0-31.0); MEAN CORPUSCULAR VOLUME 86.5 FL (78-98); MEAN PLATELET VOLUME 9.6 FL (7.4-10.4); MONOCYTES # (AUTO) 0.7 X10'3 (0-0.9); MONOCYTES % (AUTO) 2.8 % (2-12); NEUTROPHILS % (AUTO) 94.8 % (42-75); PLATELET COUNT 308 X10'3 (140-440); RED BLOOD COUNT 5.33 X10'6 (4.70-6.10); RED CELL DISTRIBUTION WIDTH 15.6 % (11.5-14.5); WHITE BLOOD COUNT 24.3 X10'3 (4.5-11.0)
[2024-05-31 05:10] LABS: ALANINE AMINOTRANSFERASE 39 U/L (12-78); ALBUMIN 3.5 G/DL (3.4-5.0); ALBUMIN/GLOBULIN RATIO 0.8 (1.1-1.5); ALKALINE PHOSPHATASE 112 IU/L (46-116); ANION GAP 11 (8-16); ASPARTATE AMINO TRANSFERASE 20 U/L (10-37); BLOOD UREA NITROGEN 39 MG/DL (7-18); BUN/CREATININE RATIO 26.7 (10.0-20.0); CALCIUM 8.7 MG/DL (8.5-10.1); CHLORIDE 101 MMOL/L (99-107); CHOL/HDL RATIO 3.1 (0.00-4.99); CHOLESTEROL 162 MG/DL (0-200); CREATININE 1.46 MG/DL (0.60-1.10); GLUCOSE 226 MG/DL (70-104); HDL CHOLESTEROL 53 MG/DL (35-60); LDL CHOLESTEROL 101 MG/DL (50-100); MAGNESIUM 2.1 MG/DL (1.5-2.4); POTASSIUM 3.7 MMOL/L (3.5-5.1); SODIUM 140 MMOL/L (135-145); TOTAL CARBON DIOXIDE 28.4 MMOL/L (24-32); TOTAL PROTEIN 7.9 G/DL (6.4-8.2); TRIGLYCERIDES 45 MG/DL (20-135); eCRCL 60 ML/MIN; eGFR 49 ML/MIN
[2024-05-31 06:00] VITALS: BP 126/64; PULSE 74; RESP 16; TEMP 97.6; O2SAT 93
[2024-05-31] MEDS ORDERED: tamsulosin 0.4mg capsule PO SCH (08:00)
[2024-05-31 09:35] VITALS: PULSE 79; RESP 16; O2SAT 96
[2024-05-31 10:00] VITALS: BP 122/70; PULSE 90; RESP 18; TEMP 98.2; O2SAT 96
[2024-05-31 18:00] VITALS: BP 120/55; PULSE 42; RESP 18; TEMP 98.1; O2SAT 95
[2024-05-31 20:20] VITALS: PULSE 72; RESP 21; O2SAT 95
[2024-05-31] MEDS: acetaminophen 325mg tablet PO PRN (21:40)
[2024-05-31 22:00] VITALS: BP 148/76; PULSE 88; RESP 16; TEMP 98.9; O2SAT 95
[2024-06-01 05:59] LABS: BASOPHILS % (AUTO) 0.2 % (0-1); EOSINOPHILS % (AUTO) 0 % (0-6); HEMATOCRIT 46.9 % (42.0-52.0); HEMOGLOBIN 15.4 g/dl (14.0-17.9); LYMPHOCYTES # (AUTO) 0.8 X10'3 (1.1-4.8); LYMPHOCYTES % (AUTO) 3.1 % (21-51); MEAN CORPUSCULAR HEMOGLOBIN 28.6 PG (27.0-31.0); MEAN CORPUSCULAR HGB CONC 32.8 g/dL (33.0-36.5); MEAN CORPUSCULAR VOLUME 87.2 FL (78-98); MEAN PLATELET VOLUME 9.2 FL (7.4-10.4); MONOCYTES # (AUTO) 0.8 X10'3 (0-0.9); MONOCYTES % (AUTO) 2.9 % (2-12); NEUTROPHILS # (AUTO) 25.4 X10'3 (1.8-7.7); NEUTROPHILS % (AUTO) 93.8 % (42-75); PLATELET COUNT 321 X10'3 (140-440); RED BLOOD COUNT 5.37 X10'6 (4.70-6.10); RED CELL DISTRIBUTION WIDTH 15.8 % (11.5-14.5)
[2024-06-01 06:00] VITALS: BP 124/69; PULSE 67; RESP 18; TEMP 98.6; O2SAT 97
[2024-06-01 06:07] LABS: ALANINE AMINOTRANSFERASE 32 U/L (12-78); ALBUMIN 3.5 G/DL (3.4-5.0); ALBUMIN/GLOBULIN RATIO 0.8 (1.1-1.5); ALKALINE PHOSPHATASE 100 IU/L (46-116); ANION GAP 12 (8-16); ASPARTATE AMINO TRANSFERASE 27 U/L (10-37); BILIRUBIN,TOTAL 0.8 MG/DL (0.1-1.0); BLOOD UREA NITROGEN 40 MG/DL (7-18); BUN/CREATININE RATIO 34.8 (10.0-20.0); CALCIUM 8.7 MG/DL (8.5-10.1); CHLORIDE 102 MMOL/L (99-107); CREATININE 1.15 MG/DL (0.60-1.10); GLUCOSE 157 MG/DL (70-104); MAGNESIUM 2.2 MG/DL (1.5-2.4); SODIUM 140 MMOL/L (135-145); TOTAL CARBON DIOXIDE 26.5 MMOL/L (24-32); TOTAL PROTEIN 7.8 G/DL (6.4-8.2); eCRCL 75 ML/MIN; eGFR 64 ML/MIN
[2024-06-01 09:06] LABS: PLATELET ESTIMATE NORMAL; TOTAL CELLS COUNTED 100
[2024-06-01 10:00] VITALS: BP 113/60; PULSE 71; RESP 15; TEMP 98; O2SAT 96
[2024-06-01 10:24] VITALS: BP_SYST 125; PULSE 75
[2024-06-01] MEDS ORDERED: EMPA10TA PO (12:20)
[2024-06-01] MEDS ORDERED: SPIR25TA5 PO (12:20)
[2024-06-01] MEDS ORDERED: CARV3.122 PO (12:20)
[2024-06-01] MEDS ORDERED: FURO20TA4 PO (12:20)
[2024-06-01] MEDS ORDERED: LISI20TA28 PO (12:20)
[2024-06-01] MEDS ORDERED: ATOR20TA66 PO (12:20)
== END 2024-06-01 14:30 | disposition home or self-care (01) | DRG 194 ==
LOC: ER 01:20 → ED HOLD 05:25 → EDBEDREQ 23:05 → ORTHO 4S 23:35
PROVIDERS: ADMIT Surgery Surgical Critical Care; ATTEND Internal Medicine
DX: I11.0 Hypertensive heart disease with heart failure (principal); J96.21 Acute and chronic respiratory failure with hypoxia; I21.A1 Myocardial infarction type 2; N17.9 Acute kidney failure, unspecified; I42.0 Dilated cardiomyopathy; J18.9 Pneumonia, unspecified organism; J84.10 Pulmonary fibrosis, unspecified; I50.23 Acute on chronic systolic (congestive) heart failure; I42.7 Cardiomyopathy due to drug and external agent; I25.10 Atherosclerotic heart disease of native coronary artery without angina pectoris; N40.0 Benign prostatic hyperplasia without lower urinary tract symptoms; Z20.822 Contact with and (suspected) exposure to COVID-19; F17.210 Nicotine dependence, cigarettes, uncomplicated; J44.0 Chronic obstructive pulmonary disease with (acute) lower respiratory infection; I34.0 Nonrheumatic mitral (valve) insufficiency; N14.19 Nephropathy induced by other drugs, medicaments and biological substances; T50.1X5A Adverse effect of loop [high-ceiling] diuretics, initial encounter; Y92.238 Other place in hospital as the place of occurrence of the external cause; I25.2 Old myocardial infarction; Z79.899 Other long term (current) drug therapy; Z95.2 Presence of prosthetic heart valve; Z79.82 Long term (current) use of aspirin; Z86.711 Personal history of pulmonary embolism; Z86.718 Personal history of other venous thrombosis and embolism; Z91.148 Patient's other noncompliance with medication regimen for other reason; Z82.49 Family history of ischemic heart disease and other diseases of the circulatory system; Z80.3 Family history of malignant neoplasm of breast; Z88.1 Allergy status to other antibiotic agents
CPT/HCPCS: 36415; 71045; 80053; 80061; 80305; 83036; 83735; 83880; 84132; 84484; 85007; 85025; 87081; 87502; 87503; 87811; 93005; 93306; 94640; 94760; 96365; 96375; 99291; G0378; J0456; J0696; J1650; J1940; J2919

== ENCOUNTER 2024-08-28 18:04 | Inpatient (IN) | payer MEDICAID ==
[~2024-08-28] VITALS: Ht 190.5 cm; Wt 89.3 kg
[~2024-08-28 18:04] MED LIST changes: +ATOR20TA66 PO; +BACL10TA2 PO; +EMPA10TA PO; +FLO0.4C PO; +IPRA3AMP31 INH; -ISOS30TA84 PO; -LISI10TA27 PO; +LISI20TA28 PO; +NAPR-1168 PO; -ONDA-245 PO; -SPIR25TA PO; +SPIR25TA5 PO
[2024-08-28 18:43] LABS: BASOPHILS # (AUTO) 0.1 X10'3 (0-0.2); EOSINOPHILS # (AUTO) 0.4 X10'3 (0-0.9); EOSINOPHILS % (AUTO) 3.6 % (0-6); HEMATOCRIT 46.6 % (42.0-52.0); HEMOGLOBIN 15.3 g/dl (14.0-17.9); LYMPHOCYTES # (AUTO) 1.3 X10'3 (1.1-4.8); LYMPHOCYTES % (AUTO) 12.1 % (21-51); MEAN CORPUSCULAR HEMOGLOBIN 27.8 PG (27.0-31.0); MEAN CORPUSCULAR HGB CONC 32.8 g/dL (33.0-36.5); MEAN CORPUSCULAR VOLUME 84.9 FL (78-98); MEAN PLATELET VOLUME 8.6 FL (7.4-10.4); MONOCYTES # (AUTO) 0.9 X10'3 (0-0.9); MONOCYTES % (AUTO) 8.4 % (2-12); NEUTROPHILS # (AUTO) 8.1 X10'3 (1.8-7.7); NEUTROPHILS % (AUTO) 74.9 % (42-75); PLATELET COUNT 233 X10'3 (140-440); RED BLOOD COUNT 5.49 X10'6 (4.70-6.10); RED CELL DISTRIBUTION WIDTH 16.3 % (11.5-14.5); WHITE BLOOD COUNT 10.8 X10'3 (4.5-11.0)
[2024-08-28 18:53] LABS: APTT 26 SECONDS (22-32); INR 1.1 INR; PROTHROMBIN TIME 11.1 SECONDS (9.0-12.0)
[2024-08-28 19:33] LABS: BILIRUBIN,URINE NEGATIVE (Neg); CLARITY,URINE CLEAR (Clear); COLOR,URINE YELLOW (Yellow); GLUCOSE, URINE >=1000 mg/dl (Neg); KETONES,URINE NEGATIVE (Neg); LEUKOCYTE ESTERASE ,URINE NEGATIVE (Neg); NITRITES, URINE NEGATIVE (Neg); OCCULT BLOOD,URINE TRACE-INTACT (Neg); PH,URINE 5.5 (4.8-8.0); PROTEIN,URINE NEGATIVE (Neg); UROBILINOGEN,URINE 0.2 E.U/dL (0.2-1.0)
[2024-08-28 19:51] LABS: UA COLLECTION TYPE NON-SPECIFIED
[2024-08-28 19:52] LABS: BACTERIA,URINE NONE SEEN /HPF (Neg); RBC,URINE 0-2 /HPF (0-2); SQUAMOUS EPITHELIAL CELL,UR NONE SEEN /LPF (FEW); WBC,URINE NONE SEEN /HPF (0-4)
[2024-08-28 21:30] LABS: ALANINE AMINOTRANSFERASE 35 U/L (12-78); ALBUMIN 3.8 G/DL (3.4-5.0); ALBUMIN/GLOBULIN RATIO 0.9 (1.1-1.5); ALKALINE PHOSPHATASE 97 IU/L (46-116); ANION GAP 15 (8-16); ASPARTATE AMINO TRANSFERASE 28 U/L (10-37); BILIRUBIN,TOTAL 0.9 MG/DL (0.1-1.0); BLOOD UREA NITROGEN 28 MG/DL (7-18); BUN/CREATININE RATIO 24.3 (10.0-20.0); CALCIUM 8.8 MG/DL (8.5-10.1); CHLORIDE 107 MMOL/L (99-107); CREATININE 1.15 MG/DL (0.60-1.10); GLUCOSE 173 MG/DL (70-104); POTASSIUM 4.2 MMOL/L (3.5-5.1); PRO BRAIN NATRIURETIC PEPTIDE 5166 PG/ML (0-125); SODIUM 145 MMOL/L (135-145); THYROID STIMULATING HORMONE 1.38 ulU/ml (0.34-4.50); TOTAL CARBON DIOXIDE 22.7 MMOL/L (24-32); TOTAL PROTEIN 7.9 G/DL (6.4-8.2); eCRCL 80 ML/MIN; eGFR 64 ML/MIN
[2024-08-29] VITALS (12 sets, daily range): BP systolic 119–136; BP diastolic 79–91; PULSE 67–80; RESP 13–24; TEMP 96.3–98.2; O2SAT 94–99
[2024-08-29] MEDS ORDERED: albuterol 2.5 MG/3 ML nebule CONTNEB PRN (00:55)
[2024-08-29] MEDS ORDERED: potassium Cl 40MEQ/1/2NS 520ml 520 ML IV PRN (01:10)
[2024-08-29] MEDS: furosemide 10 MG/1 ML 10ml inj IV ONE (01:10)
[2024-08-29] MEDS ORDERED: albuterol 2.5 MG/3 ML nebule NEB PRN (01:10)
[2024-08-29] MEDS ORDERED: magnesium hydroxide 30ml (MOM) UD suspension PO PRN (01:10)
[2024-08-29] MEDS ORDERED: potassium Cl 20 mEq SR tablet PO PRN ×2 (01:10)
[2024-08-29] MEDS ORDERED: magnesium sulf-water 4G/100mL 100 ML IV PRN (01:10)
[2024-08-29] MEDS ORDERED: magnesium sulf-water 2g/50mL 50 ML IV PRN (01:10)
[2024-08-29] MEDS ORDERED: ondansetron/PF 4mg/2ml inj IV PRN (01:10)
[2024-08-29] MEDS ORDERED: acetaminophen 325mg tablet PO PRN ×2 (01:10)
[2024-08-29] MEDS ORDERED: magnesium Cl slow-release 64mg tablet PO PRN (01:10)
[2024-08-29] MEDS ORDERED: mag hydrox/Alum hydrox/simeth 30ml oral suspension PO PRN (01:10)
[2024-08-29 01:57] LABS: HEMOGLOBIN A1C 6.1 % (4.5-6.2)
[2024-08-29] MEDS: ipratropium/albuterol 3ml nebule NEB SCH (03:20)
[2024-08-29] MEDS: K and/or MAG REPLACEMENT MC SCH (07:16)
[2024-08-29] MEDS ORDERED: metoprolol tartrate 1mg/ml inj IV PRN (08:00)
[2024-08-29] MEDS ORDERED: aminophylline 250mg/10ml inj. IV PRN (08:00)
[2024-08-29] MEDS ORDERED: nitroGLYCERIN 0.4mg SUBLingual tab SL PRN (08:00)
[2024-08-29] MEDS: docusate sod 100mg capsule PO SCH (08:00)
[2024-08-29] MEDS ORDERED: regadenoson 0.4mg/5ml syringe IV PRN (08:00)
[2024-08-29] MEDS: heparin, porcine 5000 units/ml vial SQ SCH (08:23)
[2024-08-29] MEDS ORDERED: aminophylline 500mg/20ml vial IV PRN (08:31)
[2024-08-29] MEDS: carVEDilol 3.125mg tablet PO ONE (08:56)
[2024-08-29] MEDS: EMPAGLIFLOZIN 10 MG TABLET PO ONE (08:56)
[2024-08-29] MEDS: furosemide 40mg/4ml inj IV STA (08:59)
[2024-08-29] MEDS: spironolactone 50 MG tablet PO SCH (09:02)
[2024-08-29 13:33] LABS: BILIRUBIN,URINE NEGATIVE (Neg); CLARITY,URINE CLEAR (Clear); COLOR,URINE YELLOW (Yellow); GLUCOSE, URINE >=1000 mg/dl (Neg); KETONES,URINE NEGATIVE (Neg); LEUKOCYTE ESTERASE ,URINE NEGATIVE (Neg); NITRITES, URINE NEGATIVE (Neg); OCCULT BLOOD,URINE NEGATIVE (Neg); PH,URINE 5.5 (4.8-8.0); PROTEIN,URINE NEGATIVE (Neg); URINE AMPHETAMINE SCREEN NEGATIVE (Neg); URINE BARBITUATE SCREEN NEGATIVE (Neg); URINE BENZODIAZEPINES SCREEN NEGATIVE (Neg); URINE CANNABINOID SCREEN NEGATIVE (Neg); URINE COCAINE SCREEN NEGATIVE (Neg); URINE METHADONE SCREEN NEGATIVE (Neg); URINE OPIATE SCREEN NEGATIVE (Neg); URINE PHENCYCLIDINE SCREEN NEGATIVE (Neg); UROBILINOGEN,URINE 0.2 E.U/dL (0.2-1.0)
[2024-08-29 13:39] LABS: UA COLLECTION TYPE URINAL
[2024-08-29 13:40] LABS: BACTERIA,URINE NONE SEEN /HPF (Neg); MUCUS STRANDS NONE SEEN /LPF (Neg); RBC,URINE NONE SEEN /HPF (0-2); SQUAMOUS EPITHELIAL CELL,UR FEW /LPF (FEW); WBC,URINE 0-4 /HPF (0-4)
[2024-08-29] MEDS: furosemide 40mg/4ml inj IV SCH (21:22)
[2024-08-29] MEDS: sacubitril/valsartan 24mg-26mg tablet PO SCH (21:24)
[2024-08-29] MEDS: carVEDilol 3.125mg tablet PO SCH (21:24)
[2024-08-30] MEDS: magnesium oxide 400mg tablet PO ONE (01:46)
[2024-08-30] MEDS: cyclobenzaprine 10mg tablet PO ONE (01:46)
[2024-08-30 02:00] VITALS: BP 117/83; PULSE 73; RESP 18; TEMP 97.1; O2SAT 97
[2024-08-30 07:06] VITALS: BP 104/54; PULSE 80; RESP 18; TEMP 97.8; O2SAT 92
[2024-08-30 07:20] LABS: MAGNESIUM 2.5 MG/DL (1.5-2.4)
[2024-08-30] MEDS: EMPAGLIFLOZIN 10 MG TABLET PO SCH (08:00)
[2024-08-30 08:08] VITALS: PULSE 59; RESP 17; O2SAT 94
[2024-08-30 08:09] LABS: BASOPHILS # (AUTO) 0.1 X10'3 (0-0.2); BASOPHILS % (AUTO) 0.9 % (0-1); EOSINOPHILS # (AUTO) 0.4 X10'3 (0-0.9); EOSINOPHILS % (AUTO) 4.5 % (0-6); HEMATOCRIT 55.6 % (42.0-52.0); LYMPHOCYTES # (AUTO) 1.2 X10'3 (1.1-4.8); LYMPHOCYTES % (AUTO) 12.1 % (21-51); MEAN CORPUSCULAR HGB CONC 32.9 g/dL (33.0-36.5); MEAN CORPUSCULAR VOLUME 85.2 FL (78-98); MONOCYTES # (AUTO) 1.2 X10'3 (0-0.9); MONOCYTES % (AUTO) 12.3 % (2-12); NEUTROPHILS # (AUTO) 6.7 X10'3 (1.8-7.7); NEUTROPHILS % (AUTO) 70.2 % (42-75); PLATELET COUNT 250 X10'3 (140-440); RED BLOOD COUNT 6.52 X10'6 (4.70-6.10); RED CELL DISTRIBUTION WIDTH 16.4 % (11.5-14.5); WHITE BLOOD COUNT 9.6 X10'3 (4.5-11.0)
[2024-08-30 08:13] VITALS: PULSE 62; RESP 17
[2024-08-30 08:18] LABS: HEMOGLOBIN 18.3 g/dl (14.0-17.9)
[2024-08-30 08:24] LABS: ALANINE AMINOTRANSFERASE 30 U/L (12-78); ALBUMIN 3.8 G/DL (3.4-5.0); ALBUMIN/GLOBULIN RATIO 0.8 (1.1-1.5); ALKALINE PHOSPHATASE 83 IU/L (46-116); ANION GAP 15 (8-16); ASPARTATE AMINO TRANSFERASE 28 U/L (10-37); BLOOD UREA NITROGEN 30 MG/DL (7-18); BUN/CREATININE RATIO 26.1 (10.0-20.0); CALCIUM 9.4 MG/DL (8.5-10.1); CHLORIDE 101 MMOL/L (99-107); CREATININE 1.15 MG/DL (0.60-1.10); GLUCOSE 121 MG/DL (70-104); POTASSIUM 3.9 MMOL/L (3.5-5.1); PRO BRAIN NATRIURETIC PEPTIDE 2406 PG/ML (0-125); SODIUM 141 MMOL/L (135-145); TOTAL CARBON DIOXIDE 24.9 MMOL/L (24-32); TOTAL PROTEIN 8.7 G/DL (6.4-8.2); eCRCL 80 ML/MIN; eGFR 64 ML/MIN
[2024-08-30 08:59] VITALS: RESP 18; O2SAT 92
[2024-08-30] MEDS ORDERED: aspirin 81mg, enteric-coated 1 TAB TABLET.DR PO ONE (10:10)
[2024-08-31] MEDS ORDERED: aspirin 81mg, enteric-coated 1 TAB TABLET.DR PO SCH (08:00)
== END 2024-08-30 10:30 | disposition left against medical advice (07) | DRG 194 ==
LOC: ER 18:05 → UNDOADMIN 08-29 01:15 → ED HOLD 08-29 01:15 → PCU 3S 08-29 13:20 → ED HOLD 08-29 13:20 → UNDODISIN 08-29 13:34
PROVIDERS: ADMIT Internal Medicine Critical Care Medicine; ATTEND Nurse Practitioner Family
DX: I13.0 Hypertensive heart and chronic kidney disease with heart failure and stage 1 through stage 4 chronic kidney disease, or unspecified chronic kidney disease (principal); I21.A1 Myocardial infarction type 2; Z95.2 Presence of prosthetic heart valve; I50.23 Acute on chronic systolic (congestive) heart failure; I25.10 Atherosclerotic heart disease of native coronary artery without angina pectoris; J44.1 Chronic obstructive pulmonary disease with (acute) exacerbation; Z20.822 Contact with and (suspected) exposure to COVID-19; Z53.29 Procedure and treatment not carried out because of patient's decision for other reasons; G89.29 Other chronic pain; N18.30 Chronic kidney disease, stage 3 unspecified; D75.1 Secondary polycythemia; Z72.0 Tobacco use; Z88.1 Allergy status to other antibiotic agents
CPT/HCPCS: 36415; 70450; 71045; 80053; 80305; 81001; 83036; 83605; 83735; 83880; 84132; 84443; 84484; 85025; 85610; 85730; 87502; 87503; 87811; 93005; 93308; 94640; 94760; 96374; 97116; 97161; 97530; 99285; A6258; G0378; J1644; J1940

== ENCOUNTER 2025-03-17 05:28 | Inpatient (IN) | payer MEDICAID ==
[2025-03-17] VITALS (11 sets, daily range): BP systolic 113–121; BP diastolic 76–82; PULSE 87–120; RESP 12–24; TEMP 97.8; O2SAT 93–99
[~2025-03-17] VITALS: Ht 190.5 cm; Wt 96.0 kg
[~2025-03-17 05:28] MED LIST changes: -BUDE10.22 INH; -FLO0.4C PO; +TAMS-55 PO
--- NOTE | 2025-03-17 06:03 | ELECTROCARDIOGRAPH REPORT ---
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
--- NOTE | 2025-03-17 06:22 | Physician Documentation ---
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 Patient reports that he has not used intravenous drugs for six months. REVIEW OF SYSTEMS: Constitutional: Denies chills, fatigue, fever, weight gain or weight loss. HEENT: Denies hearing loss, sinus pressure or visual changes. Respiratory: Short of breath Cardiovascular: Chest pain. Gastrointestinal: Denies abdominal pain, blood in stool, constipation, diarrhea, heartburn, loss of appetite, nausea or vomiting. Genitourinary: Denies painful urination (dysuria), excessive amount of urine (polyuria) or urinary frequency. Metabolic/Endocrine: Denies cold intolerance, heat intolerance, excessive thirst (polydipsia) or excessive hunger (polyphagia). Neurological: Denies dizziness, extremity numbness, extremity weakness, headaches, seizures or tremors. Psychiatric: Denies anxiety or depression. Integumentary: Denies breast discharge, breast lump, hives, mole change(s), rash or skin lesion. Musculoskeletal: Denies back pain, joint pain, joint swelling or neck pain. Hematologic: Denies easily bleeding, easily bruises, lymphedema or issues with blood clots. Immunologic: Denies food allergies or seasonal allergies. PHYSICAL EXAMINATION: Vitals and nursing note reviewed. Constitutional: General: Patient is awake, alert, oriented x 4 in no acute distress and well appearing. Speech is clear and lucid. Appearance: Normal appearance. Patient is not ill-appearing, toxic-appearing or diaphoretic. HENT: Head: Normocephalic and atraumatic. Mouth: Mucous membranes are moist. Pharynx: Oropharynx is clear. Eyes: General: No scleral icterus. Extraocular Movements: Extraocular movements intact. Pupils: Pupils are equal, round, and reactive to light. Neck: Supple, no Kernig or Brudzinski sign. Cardiovascular: Rate and Rhythm: Normal rate and regular rhythm. Heart sounds: No murmur heard. Pulmonary: Effort: No respiratory distress. Breath sounds: Decreased air entry bilaterally. Abdominal: General: There is no distension. Palpations: There is no fluid wave, hepatomegaly or mass. Tenderness: There is no abdominal tenderness. There is no guarding. Musculoskeletal: General: No swelling or deformity. Skin: Coloration: Skin is not jaundiced. Findings: No erythema or rash. Neurological: Mental Status: Patient is alert. MEDICAL DECISION MAKING: This 64-year-old man presents with a three day history of shortness of breath, chest pain and nausea/vomiting. His troponin is over 800. I have initiated hep stacie, nitroglycerin, aspirin and metoprolol. Departure Disposition: ADMITTED INPATIENT Admission Level of Care: PCU with Tele Impression: Primary Impression: NSTEMI (non-ST elevated myocardial infarction) Additional Impressions: Atrial fibrillation with rapid ventricular response Shortness of breath Acute CHF (congestive heart failure) Condition: ROMAIN Carbone MD Mar 17, 2025 06:21
[2025-03-17] MEDS: ipratropium/albuterol 3ml nebule NEB STA (06:57)
--- NOTE | 2025-03-17 06:59 | RADIOLOGY REPORT ---
CHEST RADIOGRAPH Indication: Short of breath Technique: Single frontal view of the chest was obtained COMPARISON: DI CHEST,SINGLE VIEW on DOS: 08/28/24, DI CHEST,SINGLE VIEW on DOS: 05/30/24, CHEST,SINGLE VIEW on DOS: 12/30/21, CHEST,SINGLE VIEW on DOS: 12/15/21, CHEST,SINGLE VIEW on DOS: 11/23/21 FINDINGS: Lines and Tubes: None. Left anterior chest wall dual lead cardiac pacing device. Lungs: Clear Pleura: No effusion. No pneumothorax. Cardiomediastinal contours: Cardiomegaly. Bones: Unremarkable IMPRESSION: 1. Cardiomegaly.
[2025-03-17 07:42] LABS: MEAN PLATELET VOLUME 8.5 FL (7.4-10.4); RED CELL DISTRIBUTION WIDTH 16.1 % (11.5-14.5)
[2025-03-17 07:46] LABS: URINE AMPHETAMINE SCREEN POSITIVE (Neg); URINE BARBITUATE SCREEN NEGATIVE (Neg); URINE BENZODIAZEPINES SCREEN NEGATIVE (Neg); URINE CANNABINOID SCREEN NEGATIVE (Neg); URINE COCAINE SCREEN NEGATIVE (Neg); URINE METHADONE SCREEN NEGATIVE (Neg); URINE OPIATE SCREEN NEGATIVE (Neg); URINE PHENCYCLIDINE SCREEN NEGATIVE (Neg)
[2025-03-17 07:52] LABS: INR 1.5 INR
[2025-03-17 07:58] LABS: CREATININE 1.30 MG/DL (0.60-1.10); TOTAL CARBON DIOXIDE 24.5 MMOL/L (24-32); eCRCL 70 ML/MIN; eGFR 56 ML/MIN
[2025-03-17 08:04] LABS: ETHANOL < 10 MG/DL (<10); PRO BRAIN NATRIURETIC PEPTIDE 8607 PG/ML (0-125)
[2025-03-17] MEDS: ondansetron/PF 4mg/2ml inj IV ONE (09:19)
[2025-03-17] MEDS: nitroGLYCERIN 1gm ointment UD TP ONE (09:24)
[2025-03-17] MEDS: HEPARIN DRIP-CARDIAC**PHARMACIST-TO-DOSE IV ONE (09:50)
[2025-03-17] MEDS: metoprolol tartrate 1mg/ml inj IV ONE (09:51)
[2025-03-17 09:52] LABS: APTT 26 SECONDS (22-32)
[2025-03-17] MEDS: heparin 10,000 units/1 ML INJ IV ONE (09:59)
[2025-03-17] MEDS: heparin 25,000 UNIT/250ml bag 250 ML IV PRN (10:00)
[2025-03-17] MEDS: MESSAGE TO NURSING IV ONE ×2 (10:04→17:37)
[2025-03-17] MEDS ORDERED: potassium Cl 20 mEq SR tablet PO PRN ×2 (10:05)
[2025-03-17] MEDS ORDERED: magnesium sulf-water 4G/100mL 100 ML IV PRN (10:05)
[2025-03-17] MEDS ORDERED: magnesium Cl slow-release 64mg tablet PO PRN (10:05)
[2025-03-17] MEDS ORDERED: magnesium sulf-water 2g/50mL 50 ML IV PRN (10:05)
[2025-03-17] MEDS ORDERED: potassium Cl 40MEQ/1/2NS 520ml 520 ML IV PRN (10:05)
[2025-03-17] MEDS ORDERED: ipratropium/albuterol 3ml nebule NEB PRN (10:20)
--- NOTE | 2025-03-17 10:31 | ELECTROCARDIOGRAPH REPORT ---
Test Date: 2025-03-17 Test Time: 07:54:50 Pat Name: LENNY MORRISON Department: EMERGENCY ROOM Room: Gender: M Manager Pipeline: : 1960 Requested By: ROMAIN ACEVEDO Order Number: [id number] Reading MD: Measurements Intervals [place] Rate: 115 P: 0 [place]: 0 QRS: 219 QRSD: 104 T: 21 QT: 348 QTc: 482 Interpretive Statements Atrial fibrillation Ventricular premature complex Right axis deviation Borderline prolonged QT interval Please click the below link to view image of tracing.
[2025-03-17] MEDS: CefTRIAXone/D5W-Rocephin 1gm 50 ML IV SCH (10:43)
[2025-03-17] MEDS: azithromycin/NS 500mg/250ml 250 ML IV SCH (11:03)
[2025-03-17] MEDS: nicotine 14mg patch - 24hr TD ONE (11:03)
--- NOTE | 2025-03-17 11:33 | HISTORY AND PHYSICAL-Residence ---
History & Physical Providers to CC Resident Creating Document: DONAHAMMADCARLOTAALEXY ~ History of Present Illness Primary Medical Doctor: Kim Bar Reason for Admit\Complaint: SOB, Chest pain History of Present Illness The patient is a 64-year-old male with a significant past medical history of CHF with reduced ejection fraction (EF 15%), CKD, COPD, and polysubstance use including methamphetamine and IV drug use. He is homeless has a history of poor medication adherence and leaving against medical advice during prior hospitalizations. His last admission was on August 29, 2024, for which he left AMA the following day. The patient presents to the ER with progressively worsening shortness of breath and orthopnea over the past 10 days, now occurring even at rest. He also reports PND and increasing sputum production that is yellowish in color, associated with chills/fever for the past two days. Additionally, he describes diffuse chest discomfort radiating across the anterior chest, upper neck, and into the upper abdomen, characterized by a dull, pressure-like pain. He denies hemoptysis, or pleuritic chest pain. Uses inhalers intermittently but admits to being noncompliant with GDMT for heart failure. He also acknowledges ongoing methamphetamine use. Allergies: Coded Allergies: azithromycin (Verified Allergy, Mild, ITCHY, 03/17/25) Home Medications Home Medications Active Spironolactone 25 Mg Tablet 25 Mg PO DAILY Atorvastatin Calcium 20 Mg Tablet 40 Mg PO DAILY Furosemide 20 Mg Tablet 2 Tab PO DAILY 30 Days Carvedilol 3.125 Mg Tablet 1 Tab PO BID Reported Flomax* (Tamsulosin HCl) 0.4 Mg Cap.sr.24h 1 Cap PO DAILY Naproxen 500 Mg Tablet 1 Tab PO BID PRN Baclofen 10 Mg Tablet 1 Tab PO TID PRN MDD 30 Duoneb 2.5-0.5 Mg/3 Ml Soln (Ipratropium/Albuterol Sulfate) 0.5 Mg-3 Mg (2.5 Mg Base)/3 Ml Ampul.neb 1 INH BID Aspirin EC (Aspirin) 81 Mg Tablet.dr 1 Tab PO DAILY Past Medical History Past Medical History Meth induced cardiomyopathy- last known EF from 05/30/2024 was 20%. Infective endocarditis status post mitral valve replacement in 2018 Hypertension COPD Hepatitis C Past Surgical History Surgical History Comment Mitral valve replacement, infection of the left upper arm status post open drainage Family History Family History: FH: breast cancer MOTHER (cancer, breast ), FH: heart attack FATHER (cardiovascular issues), FH: heart disease Past Social History Social History Comment Smoked for the last 50 years of up to 1-1-1/2 pack of cigarettes per day. Occasional alcohol use Illicit drug abuse one month ago Lives at home with his daughter Fairly independent with his ADLs Smoking: Cigarettes, Greater than 1 pack/day Alcohol Use: Occasionally Drug Use: Marijuana, Methamphetamine Lives In: Other Occupation: other ROS All Other Systems: Reviewed and Negative ROS As stated above in the HPI, otherwise all systems are reviewed and negative. Exam Vitals: Vital Signs Date Time Temp Pulse Resp B/P (MAP) Pulse Ox O2 Delivery O2 Flow Rate FiO2 03/17/25 11:08 98 14 123/99 (107) 98 0 03/17/25 07:04 Room Air* 21 03/17/25 05:36 98.1 General: Awake and Alert, no acute distress. Less interactive HEENT: Bluish lips Neck: JVD present Resp: Bibasilar crackles, diffuse expiratory wheezing Heart: Regular Rate and rhythm, normal S1 and S2 without murmur, rub or gallop. Abdomen: Umbilical hernia Extremities: No cyanosis,clubbing or edema. Skin: Cool Diagnostic Data Last Recorded Lab Results: 03/17/25 0731 03/17/25 0731 Diagnostic Data: Laboratory Tests Test 03/17/25 07:31 Prothrombin Time 14.8 SECONDS (9.0-12.0) H INR International Normalized Ratio 1.5 INR Activated Partial Thromboplast Time 26 SECONDS (22-32) Coagulation Comments Advance Care Planning Advanced Care plannin - 30 Minutes Additional Plan 1. Acute on chronic CHFr EF (15%) Meth-Induced Cardiomyopathy Coronary Artery Disease/CAD. S/P CABG in 2017 S/P Pacemaker/AICD placement in October 2024 Echo on 08/29/24 shows EF 15% Prosthetic mitral valve in place, severely dilated left atrium, elevated pulmonary artery pressure Pulmonary vascular congestions, elevated JVP, bibasilar crackles, diffuse expiratory wheezing Risk factors: Medication noncompliance, ongoing methamphetamine use, and dietary/volume overload Admitted to PCU with telemetry Diuresis; Lasix 40 mg IV twice daily GDMT as tolerated, hold Metoprolol Strict I&Os, daily weights, fluid restriction; 1.2 L Monitor electrolytes, renal function, and BNP trends 2. Elevated troponins; type 2 [place] versus NSTEMI Troponins; 862, 808, 782 - trending Started on heparin drip in ER No ST-elevation on EKGs; consistent with supply demand mismatch from CHF exacerbation Continue telemetry monitoring Managed underlying heart failure No indication for emergent cardiac catheterization at this time 3. Acute COPD Exacerbation Leukocytosis, increased sputum production Diffuse expiratory wheezing, current smoker with 50 pack year history Plan: Maintain oxygen saturation between 90-94%; supplemental O2 via nasal canula if SpO2 <90% Solu-Medrol 125 mg IV bolus given Solu-Medrol 40 Mg IV daily Ceftriaxone 1 g IV daily Azithromycin 500 mg IV daily DuoNeb nebulization every 4 hours Incentive spirometry 4. Paroxysmal A-fib with RVR (110-120's) CHADVASc Socre = 4 Eliquis 5 mg twice daily Metoprolol 25 mg daily 5. CIERRA on CKD; Likely cardiorenal syndrome Creatinine 1.30 (baseline 1.15), GFR 56 (baseline 64) Continue cautious diuresis with renal monitoring Avoid nephrotoxins; NSAIDs, IV contrast Daily renal panel and strict I&Os 6. 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 Hyponatremia; serum sodium 132 Likely dilutional, due to CHF Fluid restriction; 1.2 L per day Monitor BMP 8. Substance use disorder Methamphetamine, prior IV drug use Contributing to cardiac and pulmonary deterioration Social working substance use navigator consult Encouraged cessation 9. Tobacco use disorder Current smoker; one pack a day for 50 years Nicotine replacement therapy; nicotine patch (refused) Provided smoking cessation counseling 10. Social determinants Homelessness, nonadherence, poor access to care Contributing to frequent readmissions and treatment noncompliance Case management, and social studies teacher consult Status: Full code DVT prophylaxis: Benny Felix Internal Medicine Resident, PGY-3 Date of Service: Mar 17, 2025 Billing Provider: NICHOLE SMITH MD Common Visit Codes: 70478-POUFFBT INP/OBS CARE (HIGH) Secondary Visit Codes: 10474-[id number] CARE PLAN 30 MINUTES CARLOTA FELIX, RES Mar 17, 2025 11:33 NICHOLE SMITH MD Mar 19, 2025 07:09
[2025-03-17 11:37] LABS: CHOL/HDL RATIO 6.7 (0.00-4.99); LDL CHOLESTEROL 115 MG/DL (50-100)
[2025-03-17] MEDS: ipratropium/albuterol 3ml nebule NEB SCH (12:43)
--- NOTE | 2025-03-17 14:12 | ELECTROCARDIOGRAPH REPORT ---
[facility] Test Date: 2025-03-17 Test Time: 14:10:19 Pat Name: LENNY MORRISON Department: [facility] Patient ID: [id number] Room: ED 8 1 Gender: M Compensation And Benefits Manager: : 1960 Requested By: ROMAIN ACEVEDO Order Number: [id number] Reading MD: Measurements Intervals [place] Rate: 97 P: 0 [place]: 0 QRS: -68 QRSD: 108 T: 83 QT: 409 QTc: 520 Interpretive Statements Afib/flut and V-paced complexes No further rhythm analysis attempted due to paced rhythm Left anterior fascicular block LVH with secondary repolarization abnormality Borderline prolonged QT interval Please click the below link to view image of tracing.
[2025-03-17] MEDS: heparin 10,000 units/1 ML INJ IV PRN (17:34)
[2025-03-17] MEDS: ondansetron/PF 4mg/2ml inj IV PRN (17:38)
[2025-03-17] MEDS: K and/or MAG REPLACEMENT MC SCH (20:00)
[2025-03-17] MEDS ORDERED: heparin, porcine 5000 units/ml vial SQ SCH (20:00)
[2025-03-18] VITALS (19 sets, daily range): BP systolic 78–139; BP diastolic 50–93; PULSE 64–115; RESP 16–22; TEMP 97.2–97.8; O2SAT 91–100
[2025-03-18] MEDS: mag hydrox/Alum hydrox/simeth 30ml oral suspension PO ONE (00:09)
[2025-03-18] MEDS: MESSAGE TO NURSING IV ONE ×2 (00:30→05:45)
[2025-03-18] MEDS: guaiFENesin/DM 10ml UD oral syrup PO ONE (04:15)
[2025-03-18] MEDS: HYDROmorphone inj. 0.5 MG/0.5 ML DISP.SYRIN IV ONE (04:16)
[2025-03-18 05:34] LABS: CREATININE 1.71 MG/DL (0.60-1.10); PHOSPHORUS 5.3 MG/DL (2.3-4.5); TOTAL CARBON DIOXIDE 24.3 MMOL/L (24-32); eCRCL 53 ML/MIN; eGFR 41 ML/MIN
[2025-03-18 05:40] LABS: MEAN PLATELET VOLUME 8.7 FL (7.4-10.4); RED CELL DISTRIBUTION WIDTH 16.3 % (11.5-14.5)
[2025-03-18] MEDS: methylPREDNISolone sod succ/PF 40mg inj. IV SCH (07:51)
[2025-03-18] MEDS: aspirin 81mg, enteric-coated 1 TAB TABLET.DR PO SCH (07:52)
[2025-03-18] MEDS: metoprolol succinate 25mg (24-HOUR) SR. Tablet PO SCH (08:05)
--- NOTE | 2025-03-18 10:26 | ELECTROCARDIOGRAPH REPORT ---
[facility] Test Date: 2025-03-18 Test Time: 10:24:40 Pat Name: LENNY MORRISON Department: [facility] 3S Patient ID: [facility]-[id number] Room: [place] [address] B Gender: M Senior Scientist: : 1960 Requested By: CARLOTA PIEDRA Order Number: [id number] Reading MD: Dr. Cameron Fallon Measurements Intervals [place] Rate: 118 P: 0 NE: 0 QRS: -27 QRSD: 101 T: 104 QT: 362 QTc: 508 Interpretive Statements Atrial fibrillation Ventricular premature complex LVH with secondary repolarization abnormality Anterior ST elevation, probably due to LVH Prolonged QT interval Electronically Signed On 03-21-2025 7:11:[address] Cameron Fallon Please click the below link to view image of tracing.
[2025-03-18] MEDS ORDERED: LIDOcaine 1% (10mg/ml) 2ml vial ONE (10:30)
[2025-03-18] MEDS ORDERED: heparin 1,000 UNITS/NS 500ml 0 ML ONE (10:31)
[2025-03-18] MEDS ORDERED: verapamil 2.5 mg/ml inj IV ONE (10:31)
[2025-03-18] MEDS ORDERED: midazolam 1 mg/ML 2ml injection ONE (10:31)
[2025-03-18] MEDS ORDERED: fentaNYL/PF 50MCG/1 ML 2ML syringe ONE (10:31)
[2025-03-18] MEDS ORDERED: nitroGLYCERIN 500mcg/5mL D5W 0 ML IV ONE (10:31)
[2025-03-18] MEDS ORDERED: heparin 1,000unit/ml 10ml vial 0 ML ONE (10:31)
[2025-03-18] MEDS ORDERED: LIDOcaine 1% 30ml preserv. free vial ONE (10:32)
[2025-03-18] MEDS: morphine 4 MG/ML inj SYRINge ONE ×2 (10:36→10:45)
[2025-03-18] MEDS: ondansetron/PF 4mg/2ml inj IM ONE (10:40)
[2025-03-18 10:52] LABS: MEAN PLATELET VOLUME 8.6 FL (7.4-10.4); RED CELL DISTRIBUTION WIDTH 16.4 % (11.5-14.5)
[2025-03-18] MEDS: enoxaparin 100mg/ml syringe SUBCUT STA (11:00)
[2025-03-18 11:05] LABS: CREATININE 1.76 MG/DL (0.60-1.10); TOTAL CARBON DIOXIDE 22.8 MMOL/L (24-32); eCRCL 51 ML/MIN; eGFR 39 ML/MIN
--- NOTE | 2025-03-18 11:35 | ELECTROCARDIOGRAPH REPORT ---
[facility] Test Date: 2025-03-18 Test Time: 10:41:00 Pat Name: LENNY MORRISON Department: [facility] 3S Patient ID: [id number] Room: [place] [address] B Gender: M Centerless Grinder Operator: Simran Cartagena : 1960 Requested By: NICHOLE SMITH Order Number: [id number] Reading MD: Dr. Cameron Fallon Measurements Intervals [place] Rate: 115 P: 0 [place]: 0 QRS: -40 QRSD: 108 T: 85 QT: 371 QTc: 513 Interpretive Statements Atrial fibrillation Left ventricular hypertrophy Anterior ST elevation, probably due to LVH Prolonged QT interval Electronically Signed On 03-21-2025 7:11:[address] Cameron Fallon Please click the below link to view image of tracing.
[2025-03-18] MEDS: morphine 4 MG/ML inj SYRINge IV PRN (12:45)
--- NOTE | 2025-03-18 14:38 | PROGRESS NOTE- Residence ---
Progress Note - Resident Providers to CC Resident Creating Document: BRUCE PIEDRA RES ~ Antibiotic Timeout Antibiotic Ordered?: Yes Subjective The patient is admitted for acute on chronic CHF with a severely reduced EF 15%, secondary to med induced cardiomyopathy. He has history of extensive coronary artery disease, status post CABG, and AICD placement. Troponins were elevated on admission, on heparin drip. When evaluated in the morning around 7:00 a.m., the patient was awake, alert, and hemodynamically stable. He was pleasant, communicative, and no apparent distress. Oxygen saturation was stable on baseline supplemental oxygen, and he denied any acute chest pain or worsening dyspnea at that time. However, later in the morning, the patient developed sudden hemodynamic instability with profound hypotension and altered mental status. His extremities were cool, and he had bluish discoloration of his lips. Rapid response was called, EKGs showed some nonspecific changes, Cardiology was called, canceled STEMI. The patient responded to IV morphine for pain, and 2 L of NS bolus; BP became stable. While obtunded, Dr. Glez had discussion with his daughter (AISSATOU), who agreed to DNR, code status updated accordingly. Later in the day, patient became awake, alert, and oriented. Dr. Smith, revisited the code status with the patient and the patient chose to be full code. His clinical condition is guarded/critical and may deteriorate any time. We will monitor his dynamics closely. Objective Vital Signs Date Time Temp Pulse Resp B/P (MAP) Pulse Ox O2 Delivery O2 Flow Rate FiO2 03/18/25 14:07 88 108/64 (79) 100 03/18/25 12:45 15 03/18/25 10:30 Room Air 03/18/25 08:30 21 03/18/25 08:25 0 03/18/25 06:00 97.4 General: Awake and Alert, no acute distress. Less interactive HEENT: Bluish lips Neck: JVD present Resp: Bibasilar crackles, diffuse expiratory wheezing Heart: Irregular rhythm, normal S1 and S2 without murmur, rub or gallop. Abdomen: Umbilical hernia Extremities: No cyanosis,clubbing or edema. Skin: Cool Result Diagram: 03/18/25 1045 03/18/25 1045 Coagulation Studies Laboratory Tests Test 03/17/25 07:31 03/18/25 10:45 Prothrombin Time 14.8 SECONDS (9.0-12.0) H INR International Normalized Ratio 1.5 INR Activated Partial Thromboplast Time 26 SECONDS (22-32) APTT (Heparin Protocol) 42 SECONDS (45-60) L Coagulation Comments Advance Care Planning Advanced Care plannin - 30 Minutes Assessment Assessment The patient is admitted for acute on chronic CHF with a severely reduced EF 15%, secondary to med induced cardiomyopathy. He has history of extensive coronary artery disease, status post CABG, and AICD placement. Troponins were elevated on admission, on heparin drip. Plan Plan 1. Acute on chronic CHFr EF (15%) Meth-Induced Cardiomyopathy Coronary Artery Disease/CAD. S/P CABG in 2017 S/P Pacemaker/AICD placement in October 2024 Echo on 08/29/24 shows EF 15% Prosthetic mitral valve in place, severely dilated left atrium, elevated pulmonary artery pressure Pulmonary vascular congestions, elevated JVP, bibasilar crackles, diffuse expiratory wheezing Risk factors: Medication noncompliance, ongoing methamphetamine use, and dietary/volume overload Admitted to PCU with telemetry Diuresis; Lasix 40 mg IV twice daily GDMT as tolerated, hold Metoprolol Strict I&Os, daily weights, fluid restriction; 1.2 L Monitor electrolytes, renal function, and BNP trends 2. Elevated troponins; type 2 [place] versus NSTEMI Troponins; 862, 808, 782 - trending Started on heparin drip in ER No ST-elevation on EKGs; Kapil NSTEMI Continue telemetry monitoring Managed underlying heart failure No indication for emergent cardiac catheterization at this time March 18, 2025: When evaluated in the morning around 7:00 a.m., the patient was awake, alert, and hemodynamically stable. He was pleasant, communicative, and no apparent distress. Oxygen saturation was stable on baseline supplemental oxygen, and he denied any acute chest pain or worsening dyspnea at that time. However, later in the morning, the patient developed sudden hemodynamic instability with profound hypotension and altered mental status. His extremities were cool, and he had bluish discoloration of his lips. He was constantly moaning of chest pain on the left side. Rapid response was called, EKGs showed some nonspecific changes, Cardiology was called, canceled STEMI. The patient responded to IV morphine for pain, and 2 L of NS bolus; BP became stable. While obtunded, Dr. Glez had discussion with his daughter, who agreed to DNR, code status updated accordingly. Later in the day, patient became awake, alert, and oriented. Dr. Smith, revisited the code status with the patient and the patient chose to be full code. 3. Acute COPD Exacerbation Leukocytosis, increased sputum production Diffuse expiratory wheezing, current smoker with 50 pack year history Plan: Maintain oxygen saturation between 90-94%; supplemental O2 via nasal canula if SpO2 <90% Solu-Medrol 125 mg IV bolus given Solu-Medrol 40 Mg IV daily Ceftriaxone 1 g IV daily Azithromycin 500 mg IV daily DuoNeb nebulization every 4 hours Incentive spirometry March 18, 2025: Expiratory wheezing improved. Continue Solu-Medrol 40 mg IV daily 4. Paroxysmal A-fib with RVR (110-120's) CHADVASc Socre = 4 We will initiate Eliquis 5 mg twice daily after completion of heparin drip. Metoprolol 25 mg daily 5. CIERRA on CKD; Likely cardiorenal syndrome Creatinine 1.30 (baseline 1.15), GFR 56 (baseline 64) Continue cautious diuresis with renal monitoring Avoid nephrotoxins; NSAIDs, IV contrast Daily renal panel and strict I&Os 03/18/2025: Creatinine slightly elevated; 1.76 today, on Lasix 40 mg IV twice daily 6. 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 Hyponatremia; serum sodium 132 Likely dilutional, due to CHF Fluid restriction; 1.2 L per day Monitor BMP 03/18/25: Sodium improving, 134 8. Substance use disorder Methamphetamine, prior IV drug use Contributing to cardiac and pulmonary deterioration Social working substance use navigator consult Encouraged cessation 9. Tobacco use disorder Current smoker; one pack a day for 50 years Nicotine replacement therapy; nicotine patch (refused) Provided smoking cessation counseling 10. Social determinants Homelessness, nonadherence, poor access to care Contributing to frequent readmissions and treatment noncompliance Case management, and social sciences professor consult Status: Full code DVT prophylaxis: Heparin Bruce Malhotra Internal Medicine Resident, PGY-3 Addendum 40 minutes of critical care time spent in the care of the pt Date of Service: Mar 18, 2025 Billing Provider: NICHOLE SMITH MD Common Visit Codes: 97514-[id number] CARE 30-74 MIN Secondary Visit Codes: 53591-[id number] CARE PLAN 30 MINUTES BRUCE PIEDRA, RES Mar 18, 2025 14:37 NICHOLE SMITH MD Mar 19, 2025 07:11
[2025-03-18 15:43] LABS: APTT 32 SECONDS (22-32)
--- NOTE | 2025-03-18 17:45 | CONSULTATION REPORT ---
History of Present Illness Providers to CC CC: ROSA MARIA FALLON MD ~ Reason for Admit\Admit Dx: Cardiology consultation Refering MD: Kim Bar History of Present Illness This is a 64-year-old gentleman who is known to me from his previous hospitalization in May 2024. 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 He presented secondary to increasing dyspnea on exertion, cough. Denies fevers or chills. This morning, patient states he had an episode of feeling unwell. He states that he laid on the floor because it was cool. He felt a heat rushing from his abdomen to his chest and had nausea. Ultimately, a STEMI alert was called. The EKG was reviewed by Dr. Evans Fallon at that time who independently evaluated and the STEMI alert was called off. Patient tells me that he is reluctant to take his medications as he has too many medications. He asked about taking a more holistic approach. He wants to know about natural remedies. Unfortunately, he also has used methamphetamine recently. He states he relapsed secondary to increased fatigue. Given his systolic heart failure and elevated high sensitivity troponins cardiology consultation was requested. Allergies: Coded Allergies: azithromycin (Verified Allergy, Mild, ITCHY, 03/17/25) Home Medications Home Medications Active Spironolactone 25 Mg Tablet 25 Mg PO DAILY Atorvastatin Calcium 20 Mg Tablet 40 Mg PO DAILY Furosemide 20 Mg Tablet 2 Tab PO DAILY 30 Days Carvedilol 3.125 Mg Tablet 1 Tab PO BID Reported Flomax* (Tamsulosin HCl) 0.4 Mg Cap.sr.24h 1 Cap PO DAILY Naproxen 500 Mg Tablet 1 Tab PO BID PRN Baclofen 10 Mg Tablet 1 Tab PO TID PRN MDD 30 Duoneb 2.5-0.5 Mg/3 Ml Soln (Ipratropium/Albuterol Sulfate) 0.5 Mg-3 Mg (2.5 Mg Base)/3 Ml Ampul.neb 1 INH BID Aspirin EC (Aspirin) 81 Mg Tablet. 1 Tab PO DAILY Past Medical History Medical History Comment Meth cardiomyopathy Endocarditis secondary to IV drug abuse with resulting severe MR status post mitral valve replacement Hepatitis-C BPH Pulmonary fibrosis COPD PE/DVT Hypertension Past Surgical History Surgical History Comment Mitral valve replacement with Medtronic Mosaic number 31 bioprosthetic valve Past Family History Family History: FH: breast cancer MOTHER (cancer, breast ), FH: heart attack FATHER (cardiovascular issues), FH: heart disease Past Social History Social History Comment States he quit smoking four days ago. He states he recently relapsed smoking methamphetamine due to fatigue but he has quit. He is currently homeless Physical Exam Last Vital Signs Recorded: RN Vital Signs have been reviewed: Yes, Temperature: 97.2, Source: Oral, Heart Rate: 85, Respiratory Rate: 18, BP: 104/75, Pulse Oximetry: 94, Weight: 88.360 Physical Exam General: Awake, alert, oriented. He is speaking in full sentences. Respiratory: Lungs are clear to auscultation bilaterally. No respiratory distress. Chest: Normal shape and size. No accessory muscle use. Cardiovascular: Irregularly irregular. S1-S2. No murmur, gallop, rub. Extremities: No lower extremity edema. There is cyanosis noted to his toes and fingers and clubbing is also noted. Neurologic: Alert and oriented x4. Nonfocal Skin: Normal color. Warm and dry. Review of Systems ROS Patient complains of shortness for breath, dyspnea on exertion, orthopnea. He complains of increased fatigue. He complains of episode of epigastric pain radiating of his chest. Results EKG EKG Atrial fibrillation with right bundle-branch block Echocardiogram Echocardiogram Echocardiogram performed August 2024 Conclusion Dilated LV size and severely reduced function. Mild septal hypertrophy. LVEF is 15%. RV is mildly dilated in size with severely reduced function. LA is severely dilated. RA is moderately dialted. Trileaflet AV appears mildly sclerotic without stenosis. Trace insufficiency. Bioprosthetic MVR appears slightly anteriorly tilted with good function. Trace to mild regurgitation vs. perivalvular leak. Peak / mean gradients of 15 / 6 mmHg. Peak velocity is measured at 1.94 m/s. TV appears normal with trace regurgitation. Normal pericardium. No effusion. Dictated by:ENRIQUE BATEMAN MD Dictation date and time:08/29/24 1637 Diagram Lab Result Diagram: 03/18/25 1045 03/18/25 1045 Assessment/Plan Additional Plan Patient presented secondary to shortness for breath. The following is his problem list: Acute on chronic systolic heart failure --recheck echocardiogram --resume guideline directed medical therapy when able. Recommend Entresto, metoprolol, spironolactone and Lasix. Patient is resistant to taking any other medications. NSTEMI. Likely [place] type 2 secondary to chronic systolic heart failure. Recommend aspirin, statin. Beta-sandi as above. --recheck echocardiogram Lactic acidosis Etiology may be multifactorial with hypoxia, cardiogenic shock versus infectious etiology. COPD --management per hospitalist Atrial fibrillation Chads Vasc is four. Recommend metoprolol. Recommend Eliquis. Acute kidney injury with chronic kidney disease --monitor Substance abuse disorder Tobacco use disorder --encouraged to quit Case discussed with Dr. Evans Fallon. In agreement with the above. For further cardiology needs please contact Dr. Arenas directly. Supervising MD Supervising Physician: MARVEL Vogt NP Mar 18, 2025 17:45
[2025-03-19] VITALS (13 sets, daily range): BP systolic 90–136; BP diastolic 50–95; PULSE 61–119; RESP 13–20; TEMP 97–98.3; O2SAT 95–99
[2025-03-19] MEDS: magnesium hydroxide 30ml (MOM) UD suspension PO ONE (01:29)
--- NOTE | 2025-03-19 05:47 | CARDIOLOGY REPORT ---
APPROVED REPORT EXAM: Comprehensive 2D, Doppler, and color-flow Echocardiogram. Patient Location: [facility] Blood Pressure: 104/75 mmHg Heart Rate: 110-123 bpm Rhythm: Atrial Fibrillation Indications Chest Pain Mitral valve replacement 2016 AFIB COPD Hypertension Hx Meth Pacemaker/AICD No practicing urologist Previous echo 08/29/24 15% EF ; tr AI TR ; Mitral valve replacement w/ gradient of 15/6 mmHG 2D Dimensions LA Diam 5.3 cm IVSd 1.4 (0.7-1.1cm) LVDd 6.7 cm PWd 1.4 (0.7-1.1cm) IVSs 1.7 (0.8-1.2cm) LVDs 6.5 (2.5-4.0cm) Aortic Root(2D) 3.3 cm PWs 1.6 (0.8-1.2cm) LVOT Diameter 2.22 (1.8-2.4cm) LVEF(%) 6.7 (>50%) Ao Asc Diam. 3.71 cm IVC 24.38 mm FS (%) 3.0 % SV 15.5 ml CO 1.7 L/min Aortic Valve AoV Peak Kris. 107.5 cm/s AoV VTI 13.1 cm AO Peak GR. 4.6 mmHg AO Mean GR. 3 mmHg LVOT VTI 9.75 cm LVOT Peak Kris. 72.7 cm/s ANGELINE(VTI)/BSA 2.90 cm2/m2 ANGELINE (VTI) 2.90 cm2 AV DI 0.75 % Mitral Valve MV E Velocity 173.2 cm/s MV Peak Gr. 16 mmHg MV DECEL TIME 164 ms MV Mean Gr. 5 mmHg MV PHT 52 ms MVA (PHT) 4.23 cm2 MV VMax 197.1 cm/s MV VMean 103.0 cm/s MVA VTI 1.21 cm2 MV VTI 31.3 cm Tricuspid Valve TR P. Velocity 292 cm/s RAP ESTIMATE 20 mmHg TR Peak Gr. 34 mmHg RVSP 54 mmHg LEFT VENTRICLE LV is moderately dilated with moderate concentric hypertrophy. Overall systolic function is severely reduced with no evidence of thrombus visualized. LVEF is 10%. RIGHT VENTRICLE RV is dilated in size with reduced function. Pacemaker wire in right heart. RVSP is estimated at 54 mmHG. ATRIA Left atrium is moderately dilated. AORTIC VALVE Trileaflet AV appears sclerotic without stenosis. Trace insufficiency. MITRAL VALVE Bioprosthetic MVR appears well seated with trace to mild perivalvular leak vs regurgitation. Peak / mean gradients of 16/5 mmHG. Peak velocity is measured at 108 cm/sec. TRICUSPID VALVE The tricuspid valve is normal in structure with poor coaptation. Moderate to severe tricuspid regurgitation with flow reversal in hepatic vein. PULMONIC VALVE The pulmonary valve is normal in structure. Trace pulmonic insufficiency. GREAT VESSELS The aortic root is normal in size. The ascending aorta is measured at 3.7 cm. IVC is dilated and collapses less than 50% with inspiration. PERICARDIUM There is no pericardial effusion. Other Information Study Quality: Adequate Conclusion LV is moderately dilated with moderate concentric hypertrophy. Overall systolic function is severely reduced with no evidence of thrombus visualized. LVEF is 10%. RV is dilated in size with reduced function. Pacemaker wire in right heart. RVSP is estimated at 54 mmHG. Left atrium is moderately dilated. Trileaflet AV appears sclerotic without stenosis. Trace insufficiency. Bioprosthetic MVR appears well seated with trace to mild perivalvular leak vs regurgitation. Peak / mean gradients of 16/5 mmHG. Peak velocity is measured at 108 cm/sec. The tricuspid valve is normal in structure with poor coaptation. Moderate to severe tricuspid regurgitation with flow reversal in hepatic vein. The pulmonary valve is normal in structure. Trace pulmonic insufficiency. The aortic root is normal in size. The ascending aorta is measured at 3.7 cm. There is no pericardial effusion.
[2025-03-19 07:18] LABS: MEAN PLATELET VOLUME 8.7 FL (7.4-10.4); RED CELL DISTRIBUTION WIDTH 16.4 % (11.5-14.5)
[2025-03-19 07:33] LABS: CREATININE 1.73 MG/DL (0.60-1.10); TOTAL CARBON DIOXIDE 24.9 MMOL/L (24-32); eCRCL 52 ML/MIN; eGFR 40 ML/MIN
[2025-03-19 07:39] LABS: TOTAL CARBON DIOXIDE 25.3 MMOL/L (24-32)
[2025-03-19 07:40] LABS: CREATININE 1.64 MG/DL (0.60-1.10); PHOSPHORUS 4.3 MG/DL (2.3-4.5); eCRCL 55 ML/MIN; eGFR 43 ML/MIN
--- NOTE | 2025-03-19 10:42 | ELECTROCARDIOGRAPH REPORT ---
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 Cameron Fallon Measurements Intervals [place] Rate: 118 P: 0 NC: 0 QRS: -48 QRSD: 105 T: 100 QT: 341 QTc: 478 Interpretive Statements Atrial fibrillation Left anterior fascicular block LVH with secondary repolarization abnormality Anterior ST elevation, probably due to LVH Borderline prolonged QT interval Electronically Signed On 03-21-2025 7:12:[address] Cameron Fallon Please click the below link to view image of tracing.
[2025-03-19] MEDS: pantoprazole 40mg Tablet.DR PO SCH (10:48)
[2025-03-19] MEDS: ondansetron 4mg rapidly disintigrating tab PO ONE (11:50)
--- NOTE | 2025-03-19 12:48 | RADIOLOGY REPORT ---
EXAM: CT CT CHEST ABDOMEN PELVIS INDICATION: ABDOMINAL PAIN, CHF EXACERBATION TECHNIQUE: Volumetric multidetector CT images of the chest, abdomen and pelvis were obtained after the administration of IV contrast. All CT scans at this facility use dose modulation, iterative reconstruction, and/or weight based dosing when appropriate to reduce radiation dose to as low as reasonably achievable. COMPARISON: CT CT ABDOMEN PELVIS on DOS: 10/15/23 FINDINGS: LOWER NECK: Unremarkable LYMPH NODES/MEDIASTINUM: Abnormal right lower paratracheal lymph node, 1.8 cm. CARDIOVASCULAR: Mild cardiomegaly. No pericardial effusion. No aneurysmal dilatation of the great vessels. Coronary artery calcifications. LUNG PARENCHYMA/PLEURAL SPACE: Trace bilateral pleural effusions. Scattered pneumatoceles. Decreased lung volumes . No consolidation. CHEST WALL: Mild bilateral gynecomastia. LIVER: Normal hepatic size without suspicious focal lesion. GALLBLADDER/BILIARY TREE: Pericholecystic edema. No visualized cholelithiasis. SPLEEN: Calcifications, which may be related to antecedent granulomatous infection. PANCREAS: Unremarkable. ADRENAL GLANDS: Unremarkable KIDNEYS: No hydronephrosis. BLADDER: Benign cysts of the anterior left kidney. PELVIC ORGANS: Unremarkable. BOWEL/MESENTERY: No CT evidence of bowel obstruction. Abnormal edematous appearance of the left jose abdominal proximal jejunal loops with slight wall thickening and mesenteric congestion. ASCITES: Small volume ascites LYMPHADENOPATHY: No pathologically enlarged lymph nodes by CT size criteria VASCULATURE: No aneurysmal dilatation. ABDOMINAL WALL: Mild body wall edema. Edema along bilateral inguinal canals. Edema along the anterior aspect of the lower anterior subcutaneous pelvis. MUSCULOSKELETAL: No acute fracture or aggressive focal osseous lesion. hardware along the sternum. Healed fracture of the right anterior inferior pubic ramus. Multifocal degenerative change of the visualized spine. chronic superior endplate height loss of T10, T11, T12. Trace possible retrolisthesis L5 over S1. Transitional anatomy with lumbarization of S1. IMPRESSION: 1. Abnormal edematous appearance of the left jose abdominal proximal jejunal loops with slight wall thickening and mesenteric congestion. 2. Findings may reflect infectious versus inflammatory enteritis. No CT evidence of bowel obstruction. 3. Abnormal right lower paratracheal lymph node, 1.8 cm. 4. Pericholecystic edema. Small volume ascites. Mild body wall edema. Correlate for congestive heart failure.
[2025-03-19] MEDS ORDERED: HYDROcodone/acetaminophen 5mg/325mg tablet PO PRN (15:40)
--- NOTE | 2025-03-19 16:30 | PROGRESS NOTE- Residence ---
Progress Note - Resident Providers to CC Resident Creating Document: CARLOTA PIEDRA RES ~ Antibiotic Timeout Antibiotic Ordered?: Yes Subjective The patient was seen at the bedside this morning. His condition had been fluctuating early in the day. Around 7:00 a.m., when evaluated, he was clinically stable and eating breakfast. Later in the morning, he developed severe abdominal pain following his meal. CT abdomen showed jejunal wall thickening, mesenteric congestions, pericholecystic edema, small volume ascites, and mild body wall edema, finding consistent with congestive enteropathy secondary to CHF rather than an acute abdominal process. The results were discussed with the patient and his daughter, who understood and agreed to continue CHF directed management and close monitoring. Objective Vital Signs Date Time Temp Pulse Resp B/P (MAP) Pulse Ox O2 Delivery O2 Flow Rate FiO2 03/19/25 12:01 111/89 (96) 03/19/25 10:52 100 14 98 Room Air 03/19/25 07:32 0.0 03/19/25 07:27 28 03/19/25 02:00 98.3 General: Awake and Alert, no acute distress. Less interactive HEENT: Bluish lips Neck: JVD present Resp: Bibasilar crackles, diffuse expiratory wheezing Heart: Irregular rhythm, normal S1 and S2 without murmur, rub or gallop. Abdomen: Umbilical hernia Extremities: Referral cyanosis bilateral feet,clubbing or edema. Skin: Cool Result Diagram: 03/19/25 0636 03/19/25 0636 Coagulation Studies Laboratory Tests Test 03/17/25 07:31 03/18/25 10:45 03/18/25 14:41 Prothrombin Time 14.8 SECONDS (9.0-12.0) H INR International Normalized Ratio 1.5 INR APTT (Heparin Protocol) 42 SECONDS (45-60) L Activated Partial Thromboplast Time 32 SECONDS (22-32) Coagulation Comments Advance Care Planning Advanced Care plannin - 30 Minutes Assessment Assessment The patient is admitted for acute on chronic CHF with a severely reduced EF 15%, secondary to med induced cardiomyopathy. He has history of extensive coronary artery disease, status post CABG, and AICD placement. Troponins were elevated on admission, on heparin drip. Plan Plan 1. Acute on chronic CHFr EF (15%) Meth-Induced Cardiomyopathy Coronary Artery Disease/CAD. S/P CABG in 2017 S/P Pacemaker/AICD placement in October 2024 Echo on 08/29/24 shows EF 15% Prosthetic mitral valve in place, severely dilated left atrium, elevated pulmonary artery pressure Pulmonary vascular congestions, elevated JVP, bibasilar crackles, diffuse expiratory wheezing Risk factors: Medication noncompliance, ongoing methamphetamine use, and dietary/volume overload Admitted to PCU with telemetry Diuresis; Lasix 40 mg IV twice daily GDMT as tolerated, hold Metoprolol Strict I&Os, daily weights, fluid restriction; 1.2 L Monitor electrolytes, renal function, and BNP trends 2. Elevated troponins; likely type 2 [place]/demand ischemia Troponins; 862, 808, 782 - trending down Started on heparin drip in ER. Discontinued yesterday Continue telemetry monitoring Managed underlying heart failure No indication for emergent cardiac catheterization at this time March 18, 2025: When evaluated in the morning around 7:00 a.m., the patient was awake, alert, and hemodynamically stable. He was pleasant, communicative, and no apparent distress. Oxygen saturation was stable on baseline supplemental oxygen, and he denied any acute chest pain or worsening dyspnea at that time. However, later in the morning, the patient developed sudden hemodynamic instability with profound hypotension and altered mental status. His extremities were cool, and he had bluish discoloration of his lips. He was constantly moaning of chest pain on the left side. Rapid response was called, EKGs showed some nonspecific changes, Cardiology was called, canceled STEMI. The patient responded to IV morphine for pain, and 2 L of NS bolus; BP became stable. While obtunded, Dr. Glez had discussion with his daughter, who agreed to DNR, code status updated accordingly. Later in the day, patient became awake, alert, and oriented. Dr. Smith, revisited the code status with the patient and the patient chose to be full code. March 19, 2025: His condition had been fluctuating early in the day. Around 7:00 a.m., when evaluated, he was clinically stable and eating breakfast. Later in the morning, he developed severe abdominal pain following his meal. CT abdomen showed jejunal wall thickening, mesenteric congestions, pericholecystic edema, small volume ascites, and mild body wall edema, finding consistent with congestive enteropathy secondary to CHF rather than an acute abdominal process. The results were discussed with the patient and his daughter, who understood and agreed to continue CHF directed management and close monitoring. 3. Acute COPD Exacerbation Leukocytosis, increased sputum production Diffuse expiratory wheezing, current smoker with 50 pack year history Plan: Maintain oxygen saturation between 90-94%; supplemental O2 via nasal canula if SpO2 <90% Solu-Medrol 125 mg IV bolus given Solu-Medrol 40 Mg IV daily Ceftriaxone 1 g IV daily Azithromycin 500 mg IV daily DuoNeb nebulization every 4 hours Incentive spirometry March 18, 2025: Expiratory wheezing improved. Continue Solu-Medrol 40 mg IV daily 4. Paroxysmal A-fib with RVR (110-120's) CHADVASc Socre = 4 We will initiate Eliquis 5 mg twice daily after completion of heparin drip. Metoprolol 25 mg daily 03/19/2025: Continue metoprolol, HR controlled 5. CIERRA on CKD; Likely cardiorenal syndrome Creatinine 1.30 (baseline 1.15), GFR 56 (baseline 64) Continue cautious diuresis with renal monitoring Avoid nephrotoxins; NSAIDs, IV contrast Daily renal panel and strict I&Os 03/18/2025: Creatinine slightly elevated; 1.76 today, on Lasix 40 mg IV twice daily 03/19/2025: Creatinine slightly trending up, continue Lasix 6. 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 Hyponatremia; serum sodium 132 Likely dilutional, due to CHF Fluid restriction; 1.2 L per day Monitor BMP 03/18/25: Sodium improving, 134 8. Substance use disorder Methamphetamine, prior IV drug use Contributing to cardiac and pulmonary deterioration Social working substance use navigator consult Encouraged cessation 9. Tobacco use disorder Current smoker; one pack a day for 50 years Nicotine replacement therapy; nicotine patch (refused) Provided smoking cessation counseling 10. Social determinants Homelessness, nonadherence, poor access to care Contributing to frequent readmissions and treatment noncompliance Case management, and social welfare clerk consult Status: Full code DVT prophylaxis: Heparin Carlota Malhotra Internal Medicine Resident, PGY-3 Date of Service: Mar 19, 2025 Billing Provider: NICHOLE SMITH MD Common Visit Codes: [id number] INP/OBS CARE(HIGH) CARLOTA PIEDRA, RES Mar 19, 2025 16:30 NICHOLE SMITH MD Mar 20, 2025 07:49
--- NOTE | 2025-03-19 17:27 | RADIOLOGY REPORT ---
EXAM: US ULTRASOUND OF ABDOMEN HISTORY: abdominal pain. CT reveals Pericholecystic edema. looking for GB COMPARISON: CT CT CHEST ABDOMEN PELVIS on DOS: 03/19/25 TECHNIQUE: Multiple longitudinal and transverse sonographic images of the abdomen were obtained. Doppler was applied as indicated. FINDINGS: [PANCREAS]: The visualized portions of the pancreas are unremarkable. [AORTA]: Normal [LIVER]: 16.54 cm. normal echogenicity and echotexture. There is no focal hepatic mass lesion detected. [GALLBLADDER]: Gallbladder wall measures 0.5 cm. There are multiple shadowing gallstones. There is a positive sonographic Vigil sign. [BILIARY TREE]: Common bile duct measures 0.3 cm in diameter. no intrahepatic biliary ductal dilatation. [ASCITES]: No free fluid is demonstrated. [VESSELS]: The main portal vein is patent on color Doppler evaluation. The inferior vena cava is patent on color Doppler evaluation. [RIGHT KIDNEY]: 12.2 x 5.5 x 4.8 cm. normal cortical echogenicity and normal contour. No hydronephrosis. IMPRESSION: 1. Cholelithiasis with trace pericholecystic edema. Correlate for acute cholecystitis.
[2025-03-19] MEDS: HYDROcodone/acetaminophen 10/325mg tab PO PRN (17:53)
[2025-03-19] MEDS ORDERED: docusate sod 100mg capsule PO PRN (21:25)
[2025-03-19] MEDS: docusate sod 100mg capsule PO PRN (21:44)
[2025-03-20] VITALS (11 sets, daily range): BP systolic 101–129; BP diastolic 73–100; PULSE 53–115; RESP 13–20; TEMP 96.8–98.9; O2SAT 94–100
[2025-03-20 07:01] LABS: CREATININE 1.94 MG/DL (0.60-1.10); TOTAL CARBON DIOXIDE 19.4 MMOL/L (24-32); eCRCL 47 ML/MIN; eGFR 35 ML/MIN
[2025-03-20 07:06] LABS: PHOSPHORUS 5.7 MG/DL (2.3-4.5)
[2025-03-20] MEDS: albuterol 2.5 MG/3 ML nebule NEB ONE (07:50)
[2025-03-20] MEDS: CALCIUM GLUC 1gm/50ml NACL,iso 50 ML IV ONE (08:02)
[2025-03-20] MEDS: dextrose 50%-water 50ml dispensing syringe IV ONE (08:12)
[2025-03-20] MEDS: INSULIN LISPRO 100 UNIT/ML INSULN.PEN MULTI-DOSE SQ ONE (08:16)
[2025-03-20] MEDS: HALLS - SOOTHE MENTHOL 1.8 MG cough drop LOZENGE MM PRN (10:25)
[2025-03-20 11:47] LABS: MEAN PLATELET VOLUME 8.9 FL (7.4-10.4); RED CELL DISTRIBUTION WIDTH 16.2 % (11.5-14.5)
[2025-03-20] MEDS ORDERED: furosemide 10 MG/1 ML 10ml inj IV SCH (11:50)
--- NOTE | 2025-03-20 11:59 | PROGRESS NOTE- Residence ---
Progress Note - Resident Providers to CC Resident Creating Document: BRUCE FELIX RES ~ Antibiotic Timeout Antibiotic Ordered?: Yes Subjective The patient was seen and examined at bedside. He is hemodynamically stable with blood pressure within reference range. He is perfusing well without supplemental oxygen. He reports persistent abdominal pain, particularly after meals. As discussed yesterday, this pain is most likely due to congestive enteropathy, in which mesenteric venous congestions worsened after eating as increased prostatic activity stretches congested bowel loops. The patient remains markedly volume overloaded on exam. He is currently receiving Lasix 40 mg twice daily. Given ongoing congestions and marginal response, dobutamine infusion will be initiated at 2 mcg/kg per minute today for inotropic support and to aid diuresis. His Lasix is increased to 60 mg IV 3 times daily. Of note, serum creatinine continues to rise; from 1.3 mg to 1.94 today - suggesting possible cardiorenal CIERRA. Close monitoring is warranted as aggressive diuresis may further worsened renal function. The patient also developed hyperkalemia (serum potassium 6.4), which was treated with calcium gluconate, insulin with dextrose, and albuterol nebulization. Serum sodium is 126, likely secondary to dilutional hyponatremia from volume overload. Repeat BMP has been ordered to monitor electrolyte and renal trends. Objective Vital Signs Date Time Temp Pulse Resp B/P (MAP) Pulse Ox O2 Delivery O2 Flow Rate FiO2 03/20/25 11:00 96.8 115 14 123/94 (104) 98 Room Air 03/20/25 07:57 0.0 03/20/25 07:52 21 General: Awake and Alert, no acute distress. Less interactive HEENT: Bluish lips Neck: JVD present Resp: Bibasilar crackles, diffuse expiratory wheezing Heart: Irregular rhythm, normal S1 and S2 without murmur, rub or gallop. Abdomen: Umbilical hernia, mild diffuse tenderness. Peristalsis auscultated Extremities: cyanosis bilateral feet, 1+ pedal edema Skin: Cool Result Diagram: 03/20/25 1110 03/20/25 0621 Coagulation Studies Laboratory Tests Test 03/17/25 07:31 03/18/25 10:45 03/18/25 14:41 Prothrombin Time 14.8 SECONDS (9.0-12.0) H INR International Normalized Ratio 1.5 INR APTT (Heparin Protocol) 42 SECONDS (45-60) L Activated Partial Thromboplast Time 32 SECONDS (22-32) Coagulation Comments Advance Care Planning Advanced Care plannin - 30 Minutes Assessment Assessment The patient is admitted for acute on chronic CHF with a severely reduced EF 15%, secondary to med induced cardiomyopathy. He has history of extensive coronary artery disease, status post CABG, and AICD placement. Troponins were elevated on admission, on heparin drip. Plan Plan 1. Acute on chronic CHFr EF (15%) Meth-Induced Cardiomyopathy Coronary Artery Disease/CAD. S/P CABG in 2017 S/P Pacemaker/AICD placement in October 2024 Echo on 08/29/24 shows EF 15% Prosthetic mitral valve in place, severely dilated left atrium, elevated pulmonary artery pressure Pulmonary vascular congestions, elevated JVP, bibasilar crackles, diffuse expiratory wheezing Risk factors: Medication noncompliance, ongoing methamphetamine use, and dietary/volume overload Admitted to PCU with telemetry Diuresis; Lasix 40 mg IV twice daily GDMT as tolerated, hold Metoprolol Strict I&Os, daily weights, fluid restriction; 1.2 L Monitor electrolytes, renal function, and BNP trends 2. Elevated troponins; likely type 2 AZ/demand ischemia Troponins; 862, 808, 782 - trending down Started on heparin drip in ER. Discontinued yesterday Continue telemetry monitoring Managed underlying heart failure No indication for emergent cardiac catheterization at this time March 18, 2025: When evaluated in the morning around 7:00 a.m., the patient was awake, alert, and hemodynamically stable. He was pleasant, communicative, and no apparent distress. Oxygen saturation was stable on baseline supplemental oxygen, and he denied any acute chest pain or worsening dyspnea at that time. However, later in the morning, the patient developed sudden hemodynamic instability with profound hypotension and altered mental status. His extremities were cool, and he had bluish discoloration of his lips. He was constantly moaning of chest pain on the left side. Rapid response was called, EKGs showed some nonspecific changes, Cardiology was called, canceled STEMI. The patient responded to IV morphine for pain, and 2 L of NS bolus; BP became stable. While obtunded, Dr. Glez had discussion with his daughter, who agreed to DNR, code status updated accordingly. Later in the day, patient became awake, alert, and oriented. Dr. Smith, revisited the code status with the patient and the patient chose to be full code. March 19, 2025: His condition had been fluctuating early in the day. Around 7:00 a.m., when evaluated, he was clinically stable and eating breakfast. Later in the morning, he developed severe abdominal pain following his meal. CT abdomen showed jejunal wall thickening, mesenteric congestions, pericholecystic edema, small volume ascites, and mild body wall edema, finding consistent with congestive enteropathy secondary to CHF rather than an acute abdominal process. The results were discussed with the patient and his daughter, who understood and agreed to continue CHF directed management and close monitoring. March 20, 2025: He is hemodynamically stable with blood pressure within reference range. He is perfusing well without supplemental oxygen. He reports persistent abdominal pain, particularly after meals. As discussed yesterday, this pain is most likely due to congestive enteropathy, in which mesenteric venous congestions worsened after eating as increased prostatic activity stretches congested bowel loops. The patient remains markedly volume overloaded on exam. He is currently receiving Lasix 40 mg twice daily. Given ongoing congestions and marginal response, dobutamine infusion will be initiated at 2 mcg/kg per minute today for inotropic support and to aid diuresis. His Lasix is increased to 60 mg IV 3 times daily. Of note, serum creatinine continues to rise; from 1.3 mg to 1.94 today - suggesting possible cardiorenal CIERRA. Close monitoring is warranted as aggressive diuresis may further worsened renal function. The patient also developed hyperkalemia (serum potassium 6.4), which was treated with calcium gluconate, insulin with dextrose, and albuterol nebulization. Serum sodium is 126, likely secondary to dilutional hyponatremia from volume overload. Repeat BMP has been ordered to monitor electrolyte and renal trends. 3. Acute COPD Exacerbation Leukocytosis, increased sputum production Diffuse expiratory wheezing, current smoker with 50 pack year history Plan: Maintain oxygen saturation between 90-94%; supplemental O2 via nasal canula if SpO2 <90% Solu-Medrol 125 mg IV bolus given Solu-Medrol 40 Mg IV daily Ceftriaxone 1 g IV daily Azithromycin 500 mg IV daily DuoNeb nebulization every 4 hours Incentive spirometry March 18, 2025: Expiratory wheezing improved. Continue Solu-Medrol 40 mg IV daily March 20, 2025: Azithromycin discontinued. Received for four days. 4. Paroxysmal A-fib with RVR (110-120's) CHADVASc Socre = 4 We will initiate Eliquis 5 mg twice daily after completion of heparin drip. Metoprolol 25 mg daily 03/19/2025: Continue metoprolol, HR controlled 5. CIERRA on CKD; Likely cardiorenal syndrome Creatinine 1.30 (baseline 1.15), GFR 56 (baseline 64) Continue cautious diuresis with renal monitoring Avoid nephrotoxins; NSAIDs, IV contrast Daily renal panel and strict I&Os 03/18/2025: Creatinine slightly elevated; 1.76 today, on Lasix 40 mg IV twice daily 03/19/2025: Creatinine slightly trending up, continue Lasix 03/20/2025: serum creatinine continues to rise; from 1.3 mg to 1.94 today - suggesting possible cardiorenal CIERRA. Close monitoring is warranted as aggressive diuresis may further worsened renal function. We will benefit from Nephrology evaluation. 6. 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 Hyponatremia; serum sodium 132 Likely dilutional, due to CHF Fluid restriction; 1.2 L per day Monitor BMP 03/18/25: Sodium improving, 134 03/20/2025: Serum sodium 127, more likely dilutional. Continue fluid restriction and diuresis. 8. Substance use disorder Methamphetamine, prior IV drug use Contributing to cardiac and pulmonary deterioration Social working substance use navigator consult Encouraged cessation 9. Tobacco use disorder Current smoker; one pack a day for 50 years Nicotine replacement therapy; nicotine patch (refused) Provided smoking cessation counseling 10. Social determinants Homelessness, nonadherence, poor access to care Contributing to frequent readmissions and treatment noncompliance Case management, and nephrology social worker consult Status: Full code DVT prophylaxis: Heparin Bruce Felix Internal Medicine Resident, PGY-3 Date of Service: Mar 20, 2025 Billing Provider: NICHOLE SMITH MD Common Visit Codes: [id number] INP/OBS CARE(HIGH) BRUCE FELIX, ALEXY Mar 20, 2025 11:59 NICHOLE SMITH MD Mar 21, 2025 06:35
[2025-03-20 12:02] LABS: CREATININE 2.01 MG/DL (0.60-1.10); TOTAL CARBON DIOXIDE 26.0 MMOL/L (24-32); eCRCL 45 ML/MIN; eGFR 34 ML/MIN
[2025-03-20] MEDS: DOBUTamine-DoBUTrex 500mg/D5W 250 ML IV SCH (12:35)
[2025-03-20] MEDS: furosemide 10 MG/1 ML 10ml inj IV SCH (15:36)
[2025-03-20] MEDS: magnesium hydroxide 30ml (MOM) UD suspension PO ONE (21:44)
[2025-03-20] MEDS: diazepam inj 5 MG/ML inj. IV ONE (22:05)
[2025-03-21] VITALS (10 sets, daily range): BP systolic 85–109; BP diastolic 65–81; PULSE 77–102; RESP 12–20; TEMP 97.6–98.8; O2SAT 94–98
[2025-03-21 06:23] LABS: MEAN PLATELET VOLUME 9.1 FL (7.4-10.4); RED CELL DISTRIBUTION WIDTH 16.2 % (11.5-14.5)
[2025-03-21 06:58] LABS: CREATININE 1.68 MG/DL (0.60-1.10); PHOSPHORUS 3.4 MG/DL (2.3-4.5); TOTAL CARBON DIOXIDE 29.7 MMOL/L (24-32); eCRCL 54 ML/MIN; eGFR 41 ML/MIN
[2025-03-21] MEDS ORDERED: mineral oil 133ml enema RC PRN (08:45)
--- NOTE | 2025-03-21 15:55 | PROGRESS NOTE- Residence ---
Progress Note - Resident Providers to CC Resident Creating Document: ALONZO MONTES, ALEXY ~ Central Line/PICC still needed: N\A Collins-Non Protocol Collins Indications Met/Not Met: F/C Indications Not Met Antibiotic Timeout Antibiotic Ordered?: No Subjective The patient was seen and examined at bedside. He is hemodynamically stable with blood pressure within reference range. He is perfusing well without supplemental oxygen. He reports persistent abdominal pain, particularly after meals. As discussed yesterday, this pain is most likely due to congestive enteropathy, in which mesenteric venous congestions worsened after eating . He appears well perfused today. No perioral cyanosis or bluish extremities. The patient has been diuresing well with a negative balance of 1700 since the past 24 hours after starting him on Lasix 60 mg IV t.i.d. with inotropic support with dobutamine drip 2 mcg/kg per minute. He had many PVCs overnight and 2 episodes of V-tach with an 8 beat and a 10 beat arrhythmias. This is most likely due to dobutamine induced tachycardia. We will reduce the dose of Lasix today to 40 mg IV b.i.d. with strict input and output monitoring and discontinue dobutamine. Objective Vital Signs Date Time Temp Pulse Resp B/P (MAP) Pulse Ox O2 Delivery O2 Flow Rate FiO2 03/21/25 15:40 86 20 94 Room Air* 0 21 03/21/25 11:00 98.8 103/81 (88) Result Diagram: 03/21/25 0539 03/21/25 0539 General: Well alert, well oriented, not confused, not agitated, well cooperated during the physical. HEENT: Conjunctive are pink, sclerae clear, no icterus, pupil is equal in both sides, reactive to light, no ear discharge, no pharyngeal erythema or an edema. Neck: Supple JVD present, no lymphadenopathy and thyromegaly. Chest: Equal air entry on both lungs, bilateral basal Crepts. Cardiovascular: S1-S2 irregular rhythm, no gallops, no rubs, no murmurs Abdomen: No visible peristalsis, Bowel sounds present on auscultation, soft, nontender, no guarding, no rigidity Small reducible umbilical hernia noted. Extremities: Cyanosis in bilateral feet, 1+ pitting edema bilaterally, capillary refill intact, peripheral pulsations are intact on both sides Central Nervous System: No focal neurological deficits, no motor or sensory weakness in all 4 extremities, could move all 4 extremities, 2+ deep tendon reflexes, negative Babinski. Musculoskeletal: No joint swelling, deformities, inflammations, and no scoliosis and back tenderness Skin: Cool Coagulation Studies Laboratory Tests Test 03/17/25 07:31 03/18/25 10:45 03/18/25 14:41 Prothrombin Time 14.8 SECONDS (9.0-12.0) H INR International Normalized Ratio 1.5 INR APTT (Heparin Protocol) 42 SECONDS (45-60) L Activated Partial Thromboplast Time 32 SECONDS (22-32) Coagulation Comments Assessment Assessment The patient is admitted for acute on chronic CHF with a severely reduced EF 15%, secondary to med induced cardiomyopathy. He has history of extensive coronary artery disease, status post CABG, and AICD placement. Troponins were elevated on admission, on heparin drip. Plan Plan 1. Acute on chronic CHFr EF (15%) Meth-Induced Cardiomyopathy Coronary Artery Disease/CAD. S/P CABG in 2017 S/P Pacemaker/AICD placement in October 2024 Echo on 08/29/24 shows EF 15% Prosthetic mitral valve in place, severely dilated left atrium, elevated pulmonary artery pressure Pulmonary vascular congestions, elevated JVP, bibasilar crackles, diffuse expiratory wheezing Risk factors: Medication noncompliance, ongoing methamphetamine use, and dietary/volume overload Admitted to PCU with telemetry Diuresis; Lasix 40 mg IV twice daily GDMT as tolerated, hold Metoprolol Strict I&Os, daily weights, fluid restriction; 1.2 L Monitor electrolytes, renal function, and BNP trends 2. Elevated troponins; likely type 2 SD/demand ischemia Troponins; 862, 808, 782 - trending down Started on heparin drip in ER. Discontinued yesterday Continue telemetry monitoring Managed underlying heart failure No indication for emergent cardiac catheterization at this time March 18, 2025: When evaluated in the morning around 7:00 a.m., the patient was awake, alert, and hemodynamically stable. He was pleasant, communicative, and no apparent distress. Oxygen saturation was stable on baseline supplemental oxygen, and he denied any acute chest pain or worsening dyspnea at that time. However, later in the morning, the patient developed sudden hemodynamic instability with profound hypotension and altered mental status. His extremities were cool, and he had bluish discoloration of his lips. He was constantly moaning of chest pain on the left side. Rapid response was called, EKGs showed some nonspecific changes, Cardiology was called, canceled STEMI. The patient responded to IV morphine for pain, and 2 L of NS bolus; BP became stable. While obtunded, Dr. Glez had discussion with his daughter, who agreed to DNR, code status updated accordingly. Later in the day, patient became awake, alert, and oriented. Dr. Smith, revisited the code status with the patient and the patient chose to be full code. March 19, 2025: His condition had been fluctuating early in the day. Around 7:00 a.m., when evaluated, he was clinically stable and eating breakfast. Later in the morning, he developed severe abdominal pain following his meal. CT abdomen showed jejunal wall thickening, mesenteric congestions, pericholecystic edema, small volume ascites, and mild body wall edema, finding consistent with congestive enteropathy secondary to CHF rather than an acute abdominal process. The results were discussed with the patient and his daughter, who understood and agreed to continue CHF directed management and close monitoring. March 20, 2025: He is hemodynamically stable with blood pressure within reference range. He is perfusing well without supplemental oxygen. He reports persistent abdominal pain, particularly after meals. As discussed yesterday, this pain is most likely due to congestive enteropathy, in which mesenteric venous congestions worsened after eating as increased prostatic activity stretches congested bowel loops. The patient remains markedly volume overloaded on exam. He is currently receiving Lasix 40 mg twice daily. Given ongoing congestions and marginal response, dobutamine infusion will be initiated at 2 mcg/kg per minute today for inotropic support and to aid diuresis. His Lasix is increased to 60 mg IV 3 times daily. Of note, serum creatinine continues to rise; from 1.3 mg to 1.94 today - suggesting possible cardiorenal CIERRA. Close monitoring is warranted as aggressive diuresis may further worsened renal function. The patient also developed hyperkalemia (serum potassium 6.4), which was treated with calcium gluconate, insulin with dextrose, and albuterol nebulization. Serum sodium is 126, likely secondary to dilutional hyponatremia from volume overload. Repeat BMP has been ordered to monitor electrolyte and renal trends. 04/07/2025: Patient was examined bedside. His vitals are stable with pulse rate in 80s and 890s and soft blood pressure. He is maintaining saturation in room air. Does not look cyanotic, no perioral cyanosis, extremities are well perfused. He complained about on and off chest pain lasting a few minutes each time. He had a few episodes of PVCs and 2 episodes of V-tach each lasting for 8-10 beats overnight. This by me due to tachycardia induced by dobutamine. We will stop dobutamine drip and reduce the dose of Lasix to 40 mg IV b.i.d. he is on metoprolol 25 mg p.o. daily He had a negative balance of 1700 in the last 24 hours with 60 mg Lasix IV t.i.d. His creatinine function improved to 1.6 today from 1.94. 3. Acute COPD Exacerbation Leukocytosis, increased sputum production Diffuse expiratory wheezing, current smoker with 50 pack year history Plan: Maintain oxygen saturation between 90-94%; supplemental O2 via nasal canula if SpO2 <90% Solu-Medrol 125 mg IV bolus given Solu-Medrol 40 Mg IV daily Ceftriaxone 1 g IV daily Azithromycin 500 mg IV daily DuoNeb nebulization every 4 hours Incentive spirometry March 18, 2025: Expiratory wheezing improved. Continue Solu-Medrol 40 mg IV daily March 20, 2025: Azithromycin discontinued. Received for four days. 03/21/2025: Discontinued ceftriaxone 1 g IV daily after 5 days of treatment. No leukocytosis, no fever spikes, inflammatory markers within the normal range- no data to support infective etiology Patient has been having glucose spikes, glucose in the range of 250s with Solu- Medrol 40 mg IV daily Follow up on hemoglobin A1c. 4. Paroxysmal A-fib with RVR (110-120's) CHADVASc Socre = 4 We will initiate Eliquis 5 mg twice daily after completion of heparin drip. Metoprolol 25 mg daily 03/19/2025: Continue metoprolol, HR controlled 5. CIERRA on CKD; Likely cardiorenal syndrome Creatinine 1.30 (baseline 1.15), GFR 56 (baseline 64) Continue cautious diuresis with renal monitoring Avoid nephrotoxins; NSAIDs, IV contrast Daily renal panel and strict I&Os 03/18/2025: Creatinine slightly elevated; 1.76 today, on Lasix 40 mg IV twice daily 03/19/2025: Creatinine slightly trending up, continue Lasix 03/20/2025: serum creatinine continues to rise; from 1.3 mg to 1.94 today - suggesting possible cardiorenal CIERRA. Close monitoring is warranted as aggressive diuresis may further worsened renal function. We will benefit from Nephrology evaluation. 03/21/2025: Creatinine decreased to 1.68 from 2, continue to monitor levels 6. Transaminitis/hyperbilirubinemia, most likely multifactorial; predominantly congestive hepatopathy from CHF, compounded by meth-related hepatic injury & reduced perfusion AST 60, ALT 121, total bilirubin 2.1 Likely secondary to passive hepatic congestion from right-sided heart failure Monitor LFTs Optimize volume status 03/21/2025: LFTs 2 days to AST 92, ALT 182, bilirubin 2.7 7. Hyponatremia; serum sodium 132 Likely dilutional, due to CHF Fluid restriction; 1.2 L per day Monitor BMP 03/18/25: Sodium improving, 134 03/20/2025: Serum sodium 127, more likely dilutional. Continue fluid restriction and diuresis. 04/07/2025: Serum sodium improving 130 8. Substance use disorder Methamphetamine, prior IV drug use Contributing to cardiac and pulmonary deterioration Social working substance use navigator consult Encouraged cessation 9. Tobacco use disorder Current smoker; one pack a day for 50 years Nicotine replacement therapy; nicotine patch (refused) Provided smoking cessation counseling 10. Social determinants Homelessness, nonadherence, poor access to care Contributing to frequent readmissions and treatment noncompliance Case management, and clinical social work therapist consult Status: Full code DVT prophylaxis: Heparin Alonzo Montes Internal Medicine Resident, PGY-1 [facility] Date of Service: Mar 21, 2025 Billing Provider: NICHOLE SMITH MD Common Visit Codes: [id number] INP/OBS CARE(HIGH) ALONZO MONTES, RES Mar 21, 2025 15:55 NICHOLE SMITH MD Mar 22, 2025 07:45
[2025-03-22 05:05] VITALS: BP 115/80; PULSE 106
[2025-03-22] MEDS: polyethylene glycol 3350 17gm powd pack PO ONE (05:18)
[2025-03-22 06:14] LABS: MEAN PLATELET VOLUME 8.9 FL (7.4-10.4); RED CELL DISTRIBUTION WIDTH 16.5 % (11.5-14.5)
[2025-03-22 06:40] LABS: CREATININE 1.44 MG/DL (0.60-1.10); PHOSPHORUS 3.3 MG/DL (2.3-4.5); TOTAL CARBON DIOXIDE 32.4 MMOL/L (24-32); eCRCL 63 ML/MIN; eGFR 50 ML/MIN
[2025-03-22 07:09] VITALS: PULSE 66; RESP 16; O2SAT 94
[2025-03-22 08:10] VITALS: RESP 15; O2SAT 95
[2025-03-22 11:00] VITALS: BP 108/73; PULSE 106; RESP 22; TEMP 97.9; O2SAT 93
--- NOTE | 2025-03-22 17:47 | DISCHARGE SUMMARY-Residence ---
Discharge Summary Providers to CC Resident Creating Document: CARLOTA PIEDRAALEXY ~ Discharge Summary Admission Diagnosis: CHF Exacerbation Admission Diagnosis Comment: Hospital course: Hospital Course DATE OF ADMISSION: MARCH 17, 2025 DATE OF DISCHARGE: MARCH 22, 2025 Discharge Diagnosis\Comment: Acute on chronic CHFr EF (10%) Meth-Induced Cardiomyopathy Coronary Artery Disease/CAD. S/P CABG in 2018 Elevated troponins; likely type 2 AZ/demand ischemia Acute COPD Exacerbation, sepsis present on admission Acute hypoxemic respiratory failure Paroxysmal A-fib with RVR (110-120's) CIERRA on CKD; Likely cardiorenal syndrome Transaminitis/hyperbilirubinemia, congestive hepatopathy from CHF Hyponatremia, likely dilutional Hyperkalemia Substance use disorder, Methamphetamine Tobacco use disorder Operations\Procedures: None Consultants: None Complications: None Condition on DC: Unstable Discharge Summary: HOSPITAL COURSE: The patient was a 64-year-old male with a significant PMH of CHF (EF 10%), CKD, COPD, coronary artery disease, status post coronary stent placement (2017), and AICD implantation (October 2024). His history was also notable for polysubstance use, including methamphetamine, and nonadherence to guideline directed medical therapy. Presented with progressive shortness of breath and was found to be in acute on chronic decompensated heart failure with reduced ejection fraction. On admission, he had acute hypoxemic respiratory failure requiring supplemental oxygen. Lab workup revealed elevated high sensitivity troponins (862, 808, 782) consistent with type 2 AZ from supply demand mismatch rather than acute coronary thrombosis. He was started on IV diuretics; initially 40 mg IV twice daily and later 60 mg IV 3 times daily, and GDMT as tolerated. A brief course of heparin infusion was initiated but discontinued once ischemic etiology was ruled out. He was also treated empirically with ceftriaxone and azithromycin for COPD exacerbation received bronchodilators, supportive oxygen therapy, and IV Solu-Medrol. Renal function initially worsened creatinine trended up to 2.0 but improved to 1.4 mg after diuresis, consistent with cardiorenal syndrome. Serum sodium remained low , suggestive of dilutional hyponatremia. His net fluid balance was approximately-3 L yesterday, with a 1.7 balance on the day of AMA. The patient also reported abdominal discomfort; CT abdomen showed bowel wall edema and mesenteric congestions, attributed to congestive hepatopathy and visceral venous congestions secondary to severe heart failure. Liver enzymes were elevated, likely reflecting congestive hepatopathy and hypoperfusion related hepatic injury. Despite improvement in creatinine stabilization of respiratory status, the patient decided to leave the hospital AGAINST MEDICAL ADVICE, fully alert and oriented at the time of departure. *Problems/Diagnosis: (1) Methamphetamine abuse Status: Acute (2) Substance abuse Status: Acute (3) Tobacco abuse Status: Acute (4) Acute exacerbation of congestive heart failure Status: Acute (5) Acute exacerbation of chronic obstructive airways disease Status: Acute Total Time Spent on D/C: > 30 Minutes (40 min) Date of Service: Mar 22, 2025 Billing Provider: NICHOLE SMITH MD Common Visit Codes: [id number] DISCH DAY >30min CARLOTA PIEDRA, RES Mar 22, 2025 17:33 NICHOLE SMITH MD Mar 23, 2025 07:01
[2025-03-23] MEDS ORDERED: polyethylene glycol 3350 17gm powd pack PO SCH (08:00)
== END 2025-03-22 15:40 | disposition left against medical advice (07) | DRG 720 ==
LOC: ER 05:28 → ED HOLD 10:22 → PCU 3S 21:40
PROVIDERS: ADMIT Internal Medicine; ATTEND Internal Medicine
PROC: 05HA33Z Insertion of Infusion Device into Left Brachial Vein, Percutaneous Approach (ICD-10-PCS; principal; 2025-03-18)
PROC: B54NZZA Ultrasonography of Left Upper Extremity Veins, Guidance (ICD-10-PCS; 2025-03-18)
PROC: BW251ZZ Computerized Tomography (CT Scan) of Chest, Abdomen and Pelvis using Low Osmolar Contrast (ICD-10-PCS; 2025-03-19)
DX: A41.9 Sepsis, unspecified organism (principal); J96.01 Acute respiratory failure with hypoxia; I50.23 Acute on chronic systolic (congestive) heart failure; E87.20 Acidosis, unspecified; R18.8 Other ascites; I21.A1 Myocardial infarction type 2; I42.7 Cardiomyopathy due to drug and external agent; I13.0 Hypertensive heart and chronic kidney disease with heart failure and stage 1 through stage 4 chronic kidney disease, or unspecified chronic kidney disease; Z59.00 Homelessness unspecified; J84.10 Pulmonary fibrosis, unspecified; N40.0 Benign prostatic hyperplasia without lower urinary tract symptoms; N17.9 Acute kidney failure, unspecified; N18.30 Chronic kidney disease, stage 3 unspecified; Z66 Do not resuscitate; Z20.822 Contact with and (suspected) exposure to COVID-19; F15.10 Other stimulant abuse, uncomplicated; I25.10 Atherosclerotic heart disease of native coronary artery without angina pectoris; J44.1 Chronic obstructive pulmonary disease with (acute) exacerbation; I48.0 Paroxysmal atrial fibrillation; Z53.29 Procedure and treatment not carried out because of patient's decision for other reasons; E87.1 Hypo-osmolality and hyponatremia; E87.5 Hyperkalemia; F17.210 Nicotine dependence, cigarettes, uncomplicated; Z86.711 Personal history of pulmonary embolism; Z95.2 Presence of prosthetic heart valve; Z80.3 Family history of malignant neoplasm of breast; Z82.49 Family history of ischemic heart disease and other diseases of the circulatory system; Z86.718 Personal history of other venous thrombosis and embolism; Z95.1 Presence of aortocoronary bypass graft; Z95.810 Presence of automatic (implantable) cardiac defibrillator; Z95.5 Presence of coronary angioplasty implant and graft; Z91.199 Patient's noncompliance with other medical treatment and regimen due to unspecified reason; Z79.899 Other long term (current) drug therapy; Z71.6 Tobacco abuse counseling
CPT/HCPCS: 36410; 36415; 71045; 71250; 74176; 76700; 76937; 80048; 80053; 80061; 80305; 80320; 82948; 83036; 83605; 83690; 83735; 83880; 84100; 84145; 84484; 85025; 85610; 85730; 86140; 87040; 87081; 87811; 93005; 93306; 94640; 94760; 94799; 96365; 97110; 97162; 99285; A4615; A4649; A6258; C1751; C1894; G0378; J0456; J0612; J0696; J1171; J1250; J1644; J1650; J1815; J1938; J2003; J2250; J2270; J2405; J2919; J3010; J3490; J7030; J7040; J7512; Q9967